=== PATIENT | male | born 1980 ===

== ENCOUNTER → 2020-02-08 09:55 | Outpatient (BNVA) | payer OTHER, SELFPAY | PROVIDERS: PCP Internal Medicine; Referring Provider Internal Medicine; Visit Provider Physician Assistant | DX: E66.01 Morbid (severe) obesity due to excess calories (principal); Z68.39 Body mass index [BMI] 39.0-39.9, adult; Z98.84 Bariatric surgery status | CPT/HCPCS: 99215 ==

== ENCOUNTER 2020-02-21 07:30 | Outpatient (REF) | payer OTHER, SELFPAY ==
[2020-02-21 08:22] LABS: MANUAL DIFF FLAG NO
[2020-02-21 08:42] LABS: Basophils Percent Auto 0.6 % (0-2); Eosinophils Absolute Auto 0.2 X10*3/uL (0.0-0.4); Eosinophils Percent Auto 2.9 % (0-4); Hematocrit 44.6 % (42-52); Hemoglobin 15.1 g/dl (14.0-18.0); Imm Gran Abs Auto 0.02 X10*3/uL (0.00-0.03); Imm Gran Pct Auto 0.3 % (0.0-0.4); Lymphocytes Absolute Auto 1.8 X10*3/uL (1.2-4.9); Lymphocytes Percent Auto 26.4 % (20-40); Mean Corpuscular HGB Conc 33.9 g/dl (31.0-36.0); Mean Corpuscular Hemoglobin 29.4 pg (27.0-33.0); Mean Corpuscular Volume 86.9 fL (80-98); Mean Platelet Volume 10.5 fL (9.4-12.4); Monocytes Absolute Auto 0.5 X10*3/uL (0.1-1.2); Neutrophils Absolute Auto 4.4 X10*3/uL (2.0-8.3); Neutrophils Percent Auto 62.8 % (45-73); Platelet Count 188 X10*3/uL (160-400); Red Blood Count 5.13 X10*6/uL (4.60-5.80); Red Cell Distribution Width 13.7 % (11.0-16.0)
[2020-02-21 09:09] LABS: Alanine Aminotransferase 23 U/L (0-40); Albumin Level 3.8 g/dL (3.5-5.0); Alkaline Phosphatase 57 U/L (39-117); Anion Gap 12 (12-20); Aspartate Amino Transferase 18 U/L (5-37); Bilirubin Total 0.5 mg/dL (0.0-1.0); Blood Urea Nitrogen 15 mg/dL (9-16); C Reactive Protein 0.32 mg/dL (< or = 0.50); Calcium 8.6 mg/dL (8.4-10.2); Carbon Dioxide 26 mmol/L (22-29); Chloride 107 mmol/L (96-108); Cholesterol 190 mg/dL; Estimated Glomerular Filt Rate > 60; Glucose Random 134 mg/dL (60-115); HDL Cholesterol 32 mg/dL; Iron 90 mcg/dL (45-160); LDL Cholesterol Calculated 136 mg/dl; Percent Iron Saturation 29 % (15-50); Sodium 141 mmol/L (135-145); Total Iron Binding Capacity 309 mcg/dL (228-428); Total Protein 6.6 g/dL (6.5-8.0); Triglycerides 114 mg/dL; Unsaturated Iron Binding 219 ug/dL
[2020-02-21 09:33] LABS: TSH reflex Free T4 1.23 mIU/mL (0.32-4.0); Vitamin D 25-OH Total 22.1 ng/mL (>30)
[2020-02-21 09:47] LABS: Estimated Average Glucose 154 mg/dL
[2020-02-21 09:58] LABS: Vitamin B12 577 pg/mL (200-900)
[2020-02-21 10:06] LABS: Ferritin 50 ng/mL (20-250)
[2020-02-25 04:12] LABS: Zinc 71 mcg/dL (60-130)
[2020-02-25 14:56] LABS: Insulin Level Total 16.2 uIU/mL
[2020-02-25 19:11] LABS: Vitamin A 37 mcg/dL (38-98)
[2020-02-28 13:32] LABS: Vitamin B1 <6 nmol/L (8-30)
[2020-02-28 20:32] LABS: Parathyroid Hormone Related Pr 9 pg/mL (14-27)
== END 2020-02-21 07:31 | disposition home or self-care (01) ==
LOC: HO.LAB 07:30
PROVIDERS: PCP Internal Medicine; Visit Provider Physician Assistant
DX: E66.01 Morbid (severe) obesity due to excess calories (principal); F17.200 Nicotine dependence, unspecified, uncomplicated; Z98.84 Bariatric surgery status
CPT/HCPCS: 36415; 80053; 80061; 82306; 82607; 82728; 82746; 83036; 83519; 83525; 83540; 84425; 84443; 84590; 84630; 85025; 86140; 99213

== ENCOUNTER → 2020-03-06 07:48 | Outpatient (BNVA) | payer OTHER, SELFPAY | PROVIDERS: PCP Internal Medicine; Visit Provider Physician Assistant | DX: Z76.89 Persons encountering health services in other specified circumstances (principal) ==

== ENCOUNTER → 2020-03-11 08:09 | Outpatient (BNVA) | payer OTHER, SELFPAY | PROVIDERS: PCP Internal Medicine; Visit Provider Dietitian, Registered | DX: Z76.89 Persons encountering health services in other specified circumstances (principal) ==

== ENCOUNTER → 2020-03-14 12:58 | Outpatient (BNVA) | payer OTHER, SELFPAY | PROVIDERS: PCP Internal Medicine; Referring Provider Internal Medicine; Visit Provider Physician Assistant | DX: Z76.89 Persons encountering health services in other specified circumstances (principal) ==

== ENCOUNTER → 2020-03-14 12:58 | Outpatient (BNVA) | payer OTHER, SELFPAY | PROVIDERS: PCP Internal Medicine; Referring Provider Internal Medicine; Visit Provider Physician Assistant ==

== ENCOUNTER → 2020-03-20 13:34 | Outpatient (BNVA) | payer OTHER, SELFPAY | PROVIDERS: PCP Internal Medicine; Referring Provider Internal Medicine; Visit Provider Dietitian, Registered | DX: Z76.89 Persons encountering health services in other specified circumstances (principal) ==

== ENCOUNTER → 2020-05-22 08:07 | Outpatient (BNVA) | payer OTHER, SELFPAY | PROVIDERS: Visit Provider Dietitian, Registered ==

== ENCOUNTER → 2020-06-11 08:21 | Outpatient (BNVA) | payer OTHER, SELFPAY | PROVIDERS: Visit Provider Physician Assistant ==

== ENCOUNTER → 2020-09-18 08:35 | Outpatient (BNV) | payer OTHER, SELFPAY | PROVIDERS: PCP Internal Medicine; Visit Provider Internal Medicine Medical Oncology | DX: Z86.718 Personal history of other venous thrombosis and embolism (principal) | CPT/HCPCS: 99213 ==

== ENCOUNTER 2020-10-22 12:45 | Outpatient (REF) | payer OTHER, SELFPAY ==
[2020-10-22 14:03] LABS: Basophils Percent Auto 0.1 % (0-2); Hemoglobin 16.1 g/dl (14.0-18.0); Imm Gran Abs Auto 0.09 X10*3/uL (0.00-0.03); Imm Gran Pct Auto 0.6 % (0.0-0.4); Lymphocytes Absolute Auto 0.8 X10*3/uL (1.2-4.9); Lymphocytes Percent Auto 5.4 % (20-40); MANUAL DIFF FLAG SCAN; Mean Corpuscular HGB Conc 33.5 g/dl (31.0-36.0); Mean Corpuscular Hemoglobin 28.9 pg (27.0-33.0); Mean Corpuscular Volume 86.2 fL (80-98); Monocytes Absolute Auto 0.4 X10*3/uL (0.1-1.2); Monocytes Percent Auto 2.9 % (2-11); Neutrophils Absolute Auto 13.4 X10*3/uL (2.0-8.3); Platelet Count 209 X10*3/uL (160-400); Red Blood Count 5.57 X10*6/uL (4.60-5.80); SCAN SMEAR FLAG 1; White Blood Count 14.7 X10*3/uL (4.8-10.8)
[2020-10-22 14:26] LABS: SLIDE REVIEW VERIFIED
[2020-10-22 14:37] LABS: Alanine Aminotransferase 24 U/L (0-40); Albumin Level 4.2 g/dL (3.5-5.0); Alkaline Phosphatase 71 U/L (39-117); Anion Gap 13 (12-20); Aspartate Amino Transferase 15 U/L (5-37); Bilirubin Total 0.4 mg/dL (0.0-1.0); Blood Urea Nitrogen 12 mg/dL (9-16); Calcium 9.4 mg/dL (8.4-10.2); Carbon Dioxide 23 mmol/L (22-29); Chloride 108 mmol/L (96-108); Estimated Glomerular Filt Rate > 60; Glucose Fasting 173 mg/dL (60-99); Potassium 4.1 mmol/L (3.3-5.1); Sodium 140 mmol/L (135-145); Total Protein 7.4 g/dL (6.5-8.0)
[2020-10-27 18:46] LABS: Mixing Study - PT 10.4 sec (9.0-11.5); PTT LA 27 sec (< OR = 40)
== END 2020-10-22 12:46 | disposition home or self-care (01) ==
LOC: HO.HMGCLDS 12:45
PROVIDERS: Nurse Practitioner Family; PCP Internal Medicine; Visit Provider Nurse Practitioner Family
DX: Z01.818 Encounter for other preprocedural examination (principal); R42 Dizziness and giddiness
CPT/HCPCS: 36415; 80048; 80053; 85025; 85611; 85732

== ENCOUNTER 2020-10-22 16:05 | Emergency (ER) | payer OTHER, SELFPAY ==
--- NOTE | ~2020-10-22 | CT_ITS ---
EXAMINATION: CT HEAD WITHOUT CONTRAST CLINICAL INFORMATION: Elevated WBC COMPARISON: None. TECHNIQUE: Contiguous axial imaging was performed from the skull base to vertex without intravenous administration of contrast. Coronal and sagittal reformatted images are performed at the CT scanner. [This CT examination was performed using dose optimization techniques as appropriate, variously including the following: *Automated exposure control *Adjustment of mA and/or kV according to patient size (this includes techniques or standardized protocols for targeted exams where dose is matched to indication/reason for exam; i.e. extremities or head) *Use of iterative reconstruction technique] DLP: 818 mGy-cm. FINDINGS: There is focal intraparenchymal bleed the right frontal lobe. The bleed measures 2.4 x 2.7 x 1.7 cm. There is a rim of low attenuation around the bleed representing edema. There is trace subarachnoid hemorrhage as well in the right frontal lobe surrounding the site of bleed. There is mild mass effect upon the adjacent gyri but no midline shift. No hydrocephalus. CT/CT head/brain wo con IMPRESSION: Right frontal focal intraparenchymal bleed with surrounding edema. Small volume of subarachnoid hemorrhage in the right frontal lobe as well. This critical result was discussed with Rosita Marie on 10/22/2020, 9:28 PM and it was ascertained that the content and urgency of the report was understood at the time of direct communication.
--- NOTE | ~2020-10-22 | XR_ITS ---
EXAMINATION: XR CHEST CLINICAL INFORMATION: Elevated white count COMPARISON: 02/12/2012 TECHNIQUE: 2 views of the chest were obtained. FINDINGS: No significant abnormality is noted involving the heart, lungs, mediastinum, bony thorax or soft tissues. XR/XR chest 2V IMPRESSION: Unremarkable examination.
[2020-10-22 16:34] VITALS: BP 148/90; PULSE 115; RESP 18; TEMP 36.8; O2SAT 98; BMI 40.1
--- NOTE | 2020-10-22 16:38 | ECG_ITS ---
Test Reason : TACHYCARDIA Blood Pressure : / mmHG Vent. Rate : 105 BPM Atrial Rate : 105 BPM P-R Int : 154 ms QRS Dur : 082 ms QT Int : 328 ms P-R-T Axes : 056 -22 010 degrees QTc Int : 433 ms Sinus tachycardia Minimal voltage criteria for LVH, may be normal variant Borderline ECG When compared with ECG of 12-FEB-2012 20:32, No significant change was found Referred By: Generic ED Physician Electronically Signed By:Sven Reeder
[2020-10-22 16:57] LABS: MANUAL DIFF FLAG NO
[2020-10-22 16:59] LABS: Basophils Percent Auto 0.2 % (0-2); Hematocrit 45.6 % (42-52); Hemoglobin 15.7 g/dl (14.0-18.0); Imm Gran Abs Auto 0.08 X10*3/uL (0.00-0.03); Imm Gran Pct Auto 0.5 % (0.0-0.4); Lymphocytes Percent Auto 5.5 % (20-40); Mean Corpuscular HGB Conc 34.4 g/dl (31.0-36.0); Mean Corpuscular Hemoglobin 29.3 pg (27.0-33.0); Mean Corpuscular Volume 85.2 fL (80-98); Mean Platelet Volume 10.5 fL (9.4-12.4); Monocytes Percent Auto 5.8 % (2-11); Neutrophils Absolute Auto 15.5 X10*3/uL (2.0-8.3); Platelet Count 189 X10*3/uL (160-400); Red Blood Count 5.35 X10*6/uL (4.60-5.80); Red Cell Distribution Width 13.1 % (11.0-16.0); White Blood Count 17.6 X10*3/uL (4.8-10.8)
[2020-10-22 17:21] LABS: Anion Gap 14 (12-20); Blood Urea Nitrogen 18 mg/dL (9-16); Calcium 9.1 mg/dL (8.4-10.2); Carbon Dioxide 20 mmol/L (22-29); Chloride 108 mmol/L (96-108); Creatinine Clr Calc Pharmacy 135.4; Estimated Glomerular Filt Rate > 60; Glucose Random 189 mg/dL (60-115); Potassium 3.8 mmol/L (3.3-5.1); Sodium 138 mmol/L (135-145)
[2020-10-22 17:27] LABS: Troponin-I High Sensitivity 12.7 ng/L (<3.5-35.0)
--- NOTE | 2020-10-22 20:17 | ED_ITS ---
HPI - General Adult General Chief complaint: General Medical Stated complaint: migraine- abnormal labs Time Seen by Provider: 10/22/20 20:04 Source: patient Mode of arrival: ambulatory Limitations: no limitations History of Present Illness HPI narrative: 40 yo male with past medical history of NIDDM, depression, anx iety,provoked DVT d/t back surgery on ASA only, [place], HTN, OA, gastric bypass here with complaints of PERERA, nausea, dizziness with movement x 2 days. Seen at [facility] 2 days ago and treated with IV toradol, reglan and dispo'd home with same after improvement in symptoms. Seen at urgent care today d/t persistent symptoms and had labs which were done which showed an elevated white blood cell count and the patient was referred to the emergency department for further evaluation. He describes the headache as generalized. He has no associated photophobia, vision changes, vomiting. He is complaining of nausea. He has some dizziness with position changes. No weakness, numbness or tingling increased from baseline neuropathy. Denies fevers, chills, cough, shortness of breath, chest pain, neck pain, urinary symptoms. The patient does have chronic low back pain but does not feel like this is worsened. Related Data Home Medications Medication Instructions Recorded Confirmed aspirin 81 mg chewable tablet 1 tab PO DAILY 02/08/20 09/18/20 blood sugar diagnostic #10 ea 02/08/20 09/18/20 blood-glucose meter #1 ea 02/08/20 09/18/20 docusate sodium 100 mg capsule 100 mg PO BID 02/08/20 09/18/20 lancets 28 gauge #100 ea 02/08/20 09/18/20 magnesium oxide 400 mg (241.3 mg 400 mg PO DAILY 02/08/20 09/18/20 magnesium) tablet acetaminophen 325 mg capsule 650 mg PO Q4H PRN 06/03/20 09/18/20 benztropine 0.5 mg tablet 0.5 mg PO DAILY PRN 06/03/20 09/18/20 cyclobenzaprine 5 mg tablet 5 mg PO TID PRN 06/03/20 09/18/20 Previous Rx's Medication Instructions Recorded multivitamin 1 tab PO DAILY #30 tab 02/29/20 cholecalciferol (vitamin D3) 25 25 mcg PO DAILY #30 cap 05/23/20 mcg (1,000 unit) capsule famotidine 20 mg tablet 20 mg PO BID 30 Days #60 tab 08/13/20 omeprazole magnesium 20 mg 20 mg PO DAILY #28 tab 09/16/20 tablet,delayed release metformin 1,000 mg tablet 1,000 mg PO BID #60 tab 09/19/20 lisinopril 10 mg tablet 10 mg PO DAILY #30 tab 09/26/20 gabapentin 400 mg capsule 400 mg PO TID 30 Days #90 cap 09/30/20 trazodone 50 mg tablet 25 mg PO DAILY 90 Days #45 tab 09/30/20 ziprasidone HCl 40 mg capsule 40 mg PO BID 30 Days #60 cap 09/30/20 clonazepam 1 mg tablet 1 mg PO DAILY PRN 30 Days #30 tab 10/01/20 zolpidem 10 mg tablet 10 mg PO BEDTIME PRN 30 Days #30 10/01/20 tab cyanocobalamin (vitamin B-12) 100 100 mcg PO DAILY #90 tab 10/05/20 mcg tablet fluoxetine 10 mg capsule 10 mg PO BID 30 Days #60 cap 10/05/20 diphenhydramine HCl 25 mg capsule 25 - 50 mg PO QID PRN #30 cap 10/22/20 metoclopramide HCl 10 mg tablet 10 mg PO Q6H PRN #15 tab 10/22/20 Allergies Allergy/AdvReac Type Severity Reaction Status Date / Time No Known Allergies Allergy Verified 10/22/20 16:33 Review of Systems Review of Systems: Yes all other systems are reviewed and are negative Constitutional: Constitutional: Reports no additional constitutional complaints, Denies body ache(s), Denies chills, Denies fever(s), Reports headache(s) and Denies weakness Eyes: Eyes: Reports no additional eye complaints and Denies change in vision ENT: Reports system reviewed and no additional complaints, except as documented, Denies dizziness, Reports headache(s), Denies nasal congestion, Denies nasal discharge and Reports neck pain Cardiovascular: Cardiovascular: Reports no additional cardiovascular complaints, Denies chest pain, Denies leg edema and Denies dyspnea Respiratory: Respiratory: Reports no additional respiratory complaints, Denies cough and Denies dyspnea Gastrointestinal: Gastrointestinal: Reports no additional gastrointestinal complaints, Denies abdominal pain, Denies diarrhea, Reports nausea and Denies vomiting Genitourinary: Genitourinary: Denies urinary incontinence Musculoskeletal: Musculoskeletal: Reports no additional musculoskeletal complaints, Reports back pain (Chronic), Denies arthralgias, Denies joint swelling, Reports neck pain, Denies numbness and Denies tingling Integumentary/Breasts: Skin/Breast: Reports system reviewed and no additional complaints, except as docu and Denies rash Neurologic: Reports system reviewed and no additional complaints, except as documented, Denies Abnormal speech present, Denies dizziness, Reports headache(s), Denies numbness, Denies tingling and Denies weakness PMFSH Past Medical History Attestation statement: The following information was validated with the patient. Source: old records reviewed and nursing notes reviewed Medical History Depression with anxiety Diabetes mellitus GERD (gastroesophageal reflux disease) Hiatal hernia Hypertension Lyme disease Morbid obesity Obstructive sleep apnea Osteoarthritis Pre-operative examination Pulmonary embolism Umbilical hernia Surgical History Gastric bypass status for obesity H/O umbilical hernia repair History of back surgery S/P laparoscopic appendectomy Status post repair of ventral hernia Family History Family History Mother History of diabetes mellitus Maternal Grandmother History of diabetes mellitus History of hypertension History of breast cancer Sister History of diabetes mellitus Social History Social History Alcohol intake: current Alcohol intake frequency: holidays/special occasions only Alcohol type: beer Patient Tobacco Use Status: Current everyday Tobacco user Use of substances other than those prescribed or required for medical reasons: No Advance Directives: No Advance Directives Information Provided: Yes Physical Exam Vital Signs: Vital Signs: Last Vital Signs Temp 98.2 F 10/22/20 22:05 Pulse 90 10/22/20 22:05 Resp 15 10/22/20 22:05 BP 144/70 H 10/22/20 22:05 Pulse Ox 89 L 10/22/20 22:05 Body Mass Index 40.1 Const: General: cooperative, healthy appearing, comfortable and no acute distress Orientation/consciousness: patient oriented x3 Limitations: no limitations HENMT: Head: Yes normal to inspection Ears: hearing grossly normal bilaterally General nose exam: Normal external nose present Face and sinus: Yes normal facial exam Mouth: Normal oral and palatal mucosa present Throat: Yes posterior oropharynx normal Eyes: General: appearance normal, both eyes and all related structures Pupils: Equal, round and reactive pupils present Neck: Neck: Yes normal visual inspection, Yes full ROM, Yes no lymphadenopathy and Yes no meningeal signs Chest: Chest palpation & inspection: normal inspection of the chest Resp: Effort & Inspection: normal respiratory effort Auscultation: clear to auscultation bilaterally Cardio: Rate: regular rate Rhythm: regular rhythm Peripheral pulses: Peripheral pulses 2+ throughout GI: Inspection: Yes normal to inspection Palpation (GI): Soft to palpation and nontender Auscultation: normal bowel sounds Back/Spine/Pelvis: Other: No midline tenderness step-offs or deformities Thoracic/Lumbar Spine: thoracic and lumbar spine normal to inspection Skin: General skin exam: no rashes or lesions noted Neuro: General: patient oriented x3, no focal motor deficits and normal sensation to monofilament Cranial nerves: Yes CN's II-XII intact bilaterally, Yes Equal, round and reactive pupils present, Yes Bilaterally intact EOM present, Yes Nystagmus not present, Yes Normal facial strength present and Yes Midline tongue present Cognition (Neuro): normal cognition Speech: No Abnormal speech present Gait exam (Neuro): Normal gait present Motor exam (neuro): 5/5 motor strength present throughout Sensory Exam: Normal double simultaneous stimulation for sensation Coordination: myeajd-ra-muys test nor mal, gplh-to-sayi test normal and tandem gait normal Extrem: General: Yes normal to inspection, Yes no pedal edema and Yes no calf tenderness Course Course Course Narrative: 40-year-old male coming in with dizziness with position changes, generalized headache and nausea for the last 2 days. Seen at urgent care as well as a secondary hospital and diagnosed with migraine. Had labs done this morning by urgent care which showed an elevated white blood cell count and so patient was referred into the emergency department for further evaluation. He denies any fevers or chills. No weakness, numbness, tingling, neck pain. No recent tick bites, rashes or joint pain. On arrival the patient is alert and oriented. Neurologically intact. Hemodynamically stable with no fever. He does have some mild tachycardia but tells me that he is in pain. No neck pain with full range of motion and no meningeal signs. Will need labs, CT head, COVID screen, UA, CXR. 2099-Called to CT scan with concern from technical writer and editor for [facility]. ?area of bleeding noted in the right frontal lobe with mild edema but no shift. Images sent direct to radiologist for STAT read. 2119-Call from Brenden Franks radiologist Right frontal focal intraparenchymal bleed with surrounding edema. Small volume of subarachnoid hemorrhage in the right frontal lobe as well. No midline shift. Denies any falls, trauma 2129-Call out to [facility] [place] [place] to discuss for transfer. 2139-Spoke to transfer line, Pending call back from [facility]. 2144-Spoke to Dr Denise at [facility] [place] [place] neuro-ICU. Accepted transfer. Pending direct admit to ICU. Patient is aware. Images sent through [employer]. Medical Decision Making MDM Narrative Medical decision making narrative: ICH vs CVA, meninigitis/encephalitis, viral syndrome Medical Records Medical records reviewed: Yes I reviewed the patient's medical records. Lab Data Lab results reviewed: Yes I reviewed the patient's lab results. Result diagrams: 10/22/20 16:53 10/22/20 16:53 Labs: Lab Results 10/22/20 10/22/20 10/22/20 Range/Units 16:53 16:53 16:53 WBC 17.6 H (4.8-10.8) X10*3/uL RBC 5.35 (4.60-5.80) X10*6/uL Hgb 15.7 (14.0-18.0) g/dl Hct 45.6 (42-52) % MCV 85.2 (80-98) fL MCH 29.3 (27.0-33.0) pg MCHC 34.4 (31.0-36.0) g/dl RDW 13.1 (11.0-16.0) % Plt Count 189 (160-400) X10*3/uL MPV 10.5 (9.4-12.4) fL Immature Gran % (Auto) 0.5 H (0.0-0.4) % Neut % (Auto) 88.0 H (45-73) % Lymph % (Auto) 5.5 L (20-40) % [place] % (Auto) 5.8 (2-11) % Eos % (Auto) 0.0 (0-4) % Baso % (Auto) 0.2 (0-2) % Lymph # (Auto) 1.0 L (1.2-4.9) X10*3/uL [place] # (Auto) 1.0 (0.1-1.2) X10*3/uL Eos # (Auto) 0.0 (0.0-0.4) X10*3/uL Baso # (Auto) 0.0 (0.0-0.2) X10*3/uL Abs Immat Gran (auto) 0.08 H (0.00-0.03) X10*3/uL Absolute Neuts (auto) 15.5 H (2.0-8.3) X10*3/uL Absolute Nucleated RBC 0.000 (0.0-0.012) X10*3/uL Nucleated RBC % (auto) 0.0 (0.0-0.2) /100WBC Sodium 138 (135-145) mmol/L Potassium 3.8 (3.3-5.1) mmol/L Chloride 108 (96-108) mmol/L Carbon Dioxide 20 L (22-29) mmol/L Anion Gap 14 (12-20) BUN 18 H (9-16) mg/dL Creatinine 0.96 (0.5-1.4) mg/dL Estim Creat Clear Calc 135.4 Estimated GFR > 60 Random Glucose 189 H (60-115) mg/dL Lactic Acid (0.5-2.0) mmol/L Calcium 9.1 (8.4-10.2) mg/dL Magnesium (1.6-2.6) mg/dL Total Bilirubin (0.0-1.0) mg/dL Direct Bilirubin (0.0-0.5) mg/dL AST (5-37) U/L ALT (0-40) U/L Alkaline Phosphatase (39-117) U/L Troponin I High Sens 12.7 (<3.5-35.0) ng/L Total Protein (6.5-8.0) g/dL Albumin (3.5-5.0) g/dL Urine Color Urine Appearance Urine pH (5.0-8.0) Ur Specific [place] (1.005-1.025) Urine Protein (NEG-TRACE) MG/DL Urine Glucose (UA) (NEG) MG/DL Urine Ketones (NEG) MG/DL Urine Blood (NEG) Urine Nitrite (NEG) Ur Leukocyte Esterase (NEG) Urine RBC (0) /HPF Urine WBC (0-4) /HPF Ur Squamous Epith Cells /LPF Urine Bacteria /LPF COVID-19 (CHARISSA) (Negative) COVID-19 Clin [facility] 10/22/20 10/22/20 10/22/20 Range/Units 20:29 20:30 20:31 WBC (4.8-10.8) X10*3/uL RBC (4.60-5.80) X10*6/uL Hgb (14.0-18.0) g/dl Hct (42-52) % MCV (80-98) fL MCH (27.0-33.0) pg MCHC (31.0-36.0) g/dl RDW (11.0-16.0) % Plt Count (160-400) X10*3/uL MPV (9.4-12.4) fL Immature Gran % (Auto) (0.0-0.4) % Neut % (Auto) (45-73) % Lymph % (Auto) (20-40) % [place] % (Auto) (2-11) % Eos % (Auto) (0-4) % Baso % (Auto) (0-2) % Lymph # (Auto) (1.2-4.9) X10*3/uL [place] # (Auto) (0.1-1.2) X10*3/uL Eos # (Auto) (0.0-0.4) X10*3/uL Baso # (Auto) (0.0-0.2) X10*3/uL Abs Immat Gran (auto) (0.00-0.03) X10*3/uL Absolute Neuts (auto) (2.0-8.3) X10*3/uL Absolute Nucleated RBC (0.0-0.012) X10*3/uL Nucleated RBC % (auto) (0.0-0.2) /100WBC Sodium (135-145) mmol/L Potassium (3.3-5.1) mmol/L Chloride (96-108) mmol/L Carbon Dioxide (22-29) mmol/L Anion Gap (12-20) BUN (9-16) mg/dL Creatinine (0.5-1.4) mg/dL Estim Creat Clear Calc Estimated GFR Random Glucose (60-115) mg/dL Lactic Acid 1.6 (0.5-2.0) mmol/L Calcium (8.4-10.2) mg/dL Magnesium (1.6-2.6) mg/dL Total Bilirubin (0.0-1.0) mg/dL Direct Bilirubin (0.0-0.5) mg/dL AST (5-37) U/L ALT (0-40) U/L Alkaline Phosphatase (39-117) U/L Troponin I High Sens 16.7 (<3.5-35.0) ng/L Total Protein (6.5-8.0) g/dL Albumin (3.5-5.0) g/dL Urine Color YELLOW Urine Appearance CLEAR Urine pH 6.0 (5.0-8.0) Ur Specific [place] >= 1.030 H (1.005-1.025) Urine Protein 1+ H (NEG-TRACE) MG/DL Urine Glucose (UA) 100 H (NEG) MG/DL Urine Ketones 15 (NEG) MG/DL Urine Blood NEG (NEG) Urine Nitrite NEG (NEG) Ur Leukocyte Esterase NEG (NEG) Urine RBC 0 (0) /HPF Urine WBC 0 (0-4) /HPF Ur Squamous Epith Cells NONE /LPF Urine Bacteria TRACE /LPF COVID-19 (CHARISSA) (Negative) COVID-19 Clin Com 10/22/20 10/22/20 Range/Units 20:32 20:32 WBC (4.8-10.8) X10*3/uL RBC (4.60-5.80) X10*6/uL Hgb (14.0-18.0) g/dl Hct (42-52) % MCV (80-98) fL MCH (27.0-33.0) pg MCHC (31.0-36.0) g/dl RDW (11.0-16.0) % Plt Count (160-400) X10*3/uL MPV (9.4-12.4) fL Immature Gran % (Auto) (0.0-0.4) % Neut % (Auto) (45-73) % Lymph % (Auto) (20-40) % [place] % (Auto) (2-11) % Eos % (Auto) (0-4) % Baso % (Auto) (0-2) % Lymph # (Auto) (1.2-4.9) X10*3/uL [place] # (Auto) (0.1-1.2) X10*3/uL Eos # (Auto) (0.0-0.4) X10*3/uL Baso # (Auto) (0.0-0.2) X10*3/uL Abs Immat Gran (auto) (0.00-0.03) X10*3/uL Absolute Neuts (auto) (2.0-8.3) X10*3/uL Absolute Nucleated RBC (0.0-0.012) X10*3/uL Nucleated RBC % (auto) (0.0-0.2) /100WBC Sodium (135-145) mmol/L Potassium (3.3-5.1) mmol/L Chloride (96-108) mmol/L Carbon Dioxide (22-29) mmol/L Anion Gap (12-20) BUN (9-16) mg/dL Creatinine (0.5-1.4) mg/dL Estim Creat Clear Calc Estimated GFR Random Glucose (60-115) mg/dL Lactic Acid (0.5-2.0) mmol/L Calcium (8.4-10.2) mg/dL Magnesium 2.1 (1.6-2.6) mg/dL Total Bilirubin 0.5 (0.0-1.0) mg/dL Direct Bilirubin < 0.2 (0.0-0.5) mg/dL AST 16 (5-37) U/L ALT 24 (0-40) U/L Alkaline Phosphatase 71 (39-117) U/L Troponin I High Sens (<3.5-35.0) ng/L Total Protein 7.6 (6.5-8.0) g/dL Albumin 4.2 (3.5-5.0) g/dL Urine Color Urine Appearance Urine pH (5.0-8.0) Ur Specific [place] (1.005-1.025) Urine Protein (NEG-TRACE) MG/DL Urine Glucose (UA) (NEG) MG/DL Urine Ketones (NEG) MG/DL Urine Blood (NEG) Urine Nitrite (NEG) Ur Leukocyte Esterase (NEG) Urine RBC (0) /HPF Urine WBC (0-4) /HPF Ur Squamous Epith Cells /LPF Urine Bacteria /LPF COVID-19 (CHARISSA) Negative (Negative) COVID-19 Clin Com See Note Imaging Data CT scan - head: Attestation: I personally reviewed and interpreted this imaging study as follows: Radiologist's impression: [address] [id number] Scan ReportSigned Patient: Korey HassanMR#: [id number]: 1980Acct:[id number]/Sex: 40 / MADM Date: 10/22/20Loc: [facility] Dr: Ordering Physician: DEDRICK MADRIGAL NP Date of Service: 10/22/20 Procedure(s): CT head/brain wo con Accession Number(s): [id number] cc: DEDRICK MADRIGAL NP~ EXAMINATION: CT HEAD WITHOUT CONTRAST CLINICAL INFORMATION: Elevated WBC COMPARISON: None. TECHNIQUE: Contiguous axial imaging was performed from the skull base to vertex without intravenous administration of contrast. Coronal and sagittal reformatted images are performed at the CT scanner. [This CT examination was performed using dose optimization techniques as appropriate, variously including the following: *Automated exposure control *Adjustment of mA and/or kV according to patient size (this includes techniques or standardized protocols for targeted exams where dose is matched to indication/reason for exam; i.e. extremities or head) *Use of iterative reconstruction technique] DLP: 818 mGy-cm. FINDINGS: There is focal intraparenchymal bleed the right frontal lobe. The bleed measures 2.4 x 2.7 x 1.7 cm. There is a rim of low attenuation around the bleed representing edema. There is trace subarachnoid hemorrhage as well in the right frontal lobe surrounding the site of bleed. There is mild mass effect upon the adjacent gyri but no midline shift. No hydrocephalus. CT/CT head/brain wo con IMPRESSION: Right frontal focal intraparenchymal bleed with surrounding edema. Small volume of subarachnoid hemorrhage in the right frontal lobe as well. Chest x-ray: Attestation: I personally reviewed and interpreted this imaging study as follows: Radiologist's impression: EXAMINATION: XR CHEST CLINICAL INFORMATION: Elevated white count COMPARISON: 02/12/2012 TECHNIQUE: 2 views of the chest were obtained. FINDINGS: No significant abnormality is noted involving the heart, lungs, mediastinum, bony thorax or soft tissues. XR/XR chest 2V IMPRESSION: Unremarkable examination. Critical Care Time Critical Care Time Critical Care Time: Yes Total Critical Care Time: 60 Attestation: Transfer to a tertiary care center Multiple repeat neuro exams Discussion with Neurosurgery Discharge Plan Discharge Clinical Impression: SAH (subarachnoid hemorrhage) Patient Disposition: er [facility] Transfer Details: [facility] Prescriptions: No Action multivitamin Tablet 1 tab PO DAILY Qty: 30 RF: 6 cholecalciferol (vitamin D3) 25 mcg (1,000 unit) capsule 25 mcg PO DAILY Qty: 30 RF: 6 famotidine 20 mg tablet 20 mg PO BID 30 Days Qty: 60 RF: 2 omeprazole magnesium [Prilosec OTC] 20 mg tablet,delayed release (DR/EC) 20 mg PO DAILY Qty: 28 RF: 3 metformin 1,000 mg tablet 1,000 mg PO BID Qty: 60 RF: 3 lisinopril 10 mg tablet 10 mg PO DAILY Qty: 30 RF: 11 trazodone 50 mg tablet 25 mg PO DAILY 90 Days Qty: 45 RF: 1 gabapentin 400 mg capsule 400 mg PO TID 30 Days Qty: 90 RF: 3 ziprasidone HCl [Geodon] 40 mg capsule 40 mg PO BID 30 Days Qty: 60 RF: 3 clonazepam 1 mg tablet 1 mg PO DAILY PRN (Reason: anxiety) 30 Days Qty: 30 RF: 0 zolpidem [Ambien] 10 mg tablet 10 mg PO BEDTIME PRN (Reason: insomnia) 30 Days Qty: 30 RF: 0 cyanocobalamin (vitamin B-12) 100 mcg tablet 100 mcg PO DAILY Qty: 90 RF: 0 fluoxetine [Prozac] 10 mg capsule 10 mg PO BID 30 Days Qty: 60 RF: 3 acetaminophen 325 mg capsule 650 mg PO Q4H PRN (Reason: Pain) RF: 0 benztropine 0.5 mg tablet 0.5 mg PO DAILY PRN (Reason: Pain) RF: 0 cyclobenzaprine 5 mg tablet 5 mg PO TID PRN (Reason: Pain) RF: 0 diphenhydramine HCl 25 mg capsule 25 - 50 mg PO QID PRN (Reason: migraine headache/nausea) Qty: 30 RF: 0 metoclopramide HCl 10 mg tablet 10 mg PO Q6H PRN (Reason: nausea and vomiting) Qty: 15 RF: 0 magnesium oxide 400 mg (241.3 mg magnesium) tablet 400 mg PO DAILY RF: 0 (DME) FreeStyle Lite Strips Strip See Rx Instructions strip .ROUTE .MEDSUPPLY Qty: 10 RF: 0 aspirin 81 mg tablet,chewable 1 tab PO DAILY RF: 0 (DME) lancets 28 gauge misc See Rx Instructions lancet topical TID Qty: 100 RF: 0 (DME) blood-glucose meter Kit See Rx Instructions ea .ROUTE .MEDSUPPLY Qty: 1 RF: 0 docusate sodium [Colace] 100 mg capsule 100 mg PO BID RF: 0 Interventions: Acute Care Transfer Worksheet (ED) Last Done: 10/22/20 23:13 Discharge Date/Time: 10/22/20 23:14
[2020-10-22 20:24] VITALS: BP 154/95; PULSE 81; RESP 18; O2SAT 99
[2020-10-22] MEDS: 0.9 % Sodium Chloride 1,000 ML 999 ML IV (20:32)
[2020-10-22] MEDS: Ketorolac Tromethamine 30 MG/ML VIAL IVPUSH (20:38)
[2020-10-22] MEDS: diphenhydrAMINE HCL 50 MG/ML VIAL 25 MG IVPUSH (20:38)
[2020-10-22] MEDS: Metoclopramide HCl 10 MG/2 ML VIAL IVPUSH (20:39)
[2020-10-22 20:42] LABS: Glucose Urine UA 100 MG/DL (NEG); Leukocyte Esterase Urine NEG (NEG); Nitrite Urine NEG (NEG); Specific Gravity - Urine >= 1.030 (1.005-1.025); Urine Blood NEG (NEG); Urine Ketones 15 MG/DL (NEG); Urine Protein 1+ MG/DL (NEG-TRACE)
[2020-10-22 20:44] LABS: Appearance Urine CLEAR; Color Urine YELLOW
[2020-10-22 20:52] LABS: Bacteria Urine TRACE /LPF; RBC Urine 0 /HPF (0); WBC Urine 0 /HPF (0-4)
[2020-10-22 20:55] LABS: Lactic Acid 1.6 mmol/L (0.5-2.0)
[2020-10-22 21:01] LABS: Alanine Aminotransferase 24 U/L (0-40); Albumin Level 4.2 g/dL (3.5-5.0); Alkaline Phosphatase 71 U/L (39-117); Aspartate Amino Transferase 16 U/L (5-37); Bilirubin Direct < 0.2 mg/dL (0.0-0.5); Bilirubin Total 0.5 mg/dL (0.0-1.0); Magnesium 2.1 mg/dL (1.6-2.6); Total Protein 7.6 g/dL (6.5-8.0)
[2020-10-22 21:04] LABS: Troponin-I High Sensitivity 16.7 ng/L (<3.5-35.0)
[2020-10-22 21:15] LABS: COVID-19 Test Negative (Negative)
[2020-10-22 22:05] VITALS: BP 144/70; PULSE 90; RESP 15; TEMP 36.8; O2SAT 89
--- NOTE | 2020-10-22 22:06 | PC.NURSE ---
PT REPORTS NAUSEA CURRENTLY RESOLVED. HEADACHE ONGOING. SECOND #18 PLACED IN R AC. PT AWARE OF PLAN FOR TRANSFER.
== END 2020-10-22 23:14 | disposition short-term general hospital (02) ==
PROVIDERS: Nurse Practitioner Family; Emergency Provider Emergency Medicine; PCP Internal Medicine
DX: I60.9 Nontraumatic subarachnoid hemorrhage, unspecified (principal); E11.9 Type 2 diabetes mellitus without complications; I10 Essential (primary) hypertension; Z86.718 Personal history of other venous thrombosis and embolism; Z79.82 Long term (current) use of aspirin; Z79.84 Long term (current) use of oral hypoglycemic drugs; Z79.899 Other long term (current) drug therapy; Z98.84 Bariatric surgery status; Z20.822 Contact with and (suspected) exposure to COVID-19
CPT/HCPCS: 36415; 70450; 71046; 80048; 80076; 81001; 83605; 83735; 84484; 85025; 87040; 87635; 93005; 96361; 96374; 96375; 99285; 99291; J1200; J1885; J2765

== ENCOUNTER 2020-12-05 09:58 | Outpatient (REF) | payer OTHER, SELFPAY ==
--- NOTE | ~2020-12-05 | US_ITS ---
EXAMINATION: US ABDOMEN COMPLETE CLINICAL INFORMATION: Unspecified abdominal pain. COMPARISON: CT abdomen 08/05/2017. Renal ultrasound 04/13/2017. Ultrasound abdomen complete. TECHNIQUE: Real-time imaging of the abdominal viscera. FINDINGS: PANCREAS: Normal. ABDOMINAL AORTA: The proximal, mid, and distal segments are normal in caliber. INFERIOR VENA CAVA: Visualized portions are normal. LIVER: The liver is normal in size. The liver contour is normal. There is increased liver echogenicity. No focal hepatic lesion. There is no intrahepatic biliary duct dilatation seen. GALLBLADDER: The bladder wall thickness is 0.27. The gallbladder is physiologically distended without evidence of stones, sludge, polyps, or pericholecystic fluid. COMMON BILE DUCT: Normal in caliber measuring 0.5 cm in diameter. RIGHT KIDNEY: There are multiple renal cysts with the largest measured. An upper pole cyst appears complex measuring 4.5 x 4.2 x 3.9 cm. A midpole cyst measures 2.8 x 2.5 x 2.6 cm. A complex cyst in the lower pole measures 2.4 x 2.2 x 2.4 cm. No hydronephrosis or renal calculi. The kidney measures 15.4 cm in maximum dimension. LEFT KIDNEY: There are multiple renal cysts with the largest measured. The upper pole cyst measuring 2.4 x 2.4 x 2.5 cm. Midpole cyst measuring 3.1 x 3.1 x 3.1 cm. Lower pole cyst measuring 2.7 x 2.2 x 2.3 cm. No hydronephrosis or renal calculi. The kidney measures 15.0 cm in maximum dimension. SPLEEN: Normal. The spleen measures 9.6 cm in maximum dimension. FREE FLUID: None. US/US abdomen complete IMPRESSION: Bilateral multiple liver cysts simple and complex. Hepatic steatosis without focal lesion. Rest of the abdominal ultrasound is unremarkable.
== END 2020-12-05 09:59 | disposition home or self-care (01) ==
LOC: HO.HMGCX 09:58
PROVIDERS: PCP Internal Medicine; Visit Provider Internal Medicine
DX: R10.9 Unspecified abdominal pain (principal)
CPT/HCPCS: 76700

== ENCOUNTER → 2020-12-16 14:03 | Outpatient (BNVA) | payer OTHER, SELFPAY | PROVIDERS: PCP Internal Medicine; Visit Provider Urology | DX: Q61.3 Polycystic kidney, unspecified (principal) | CPT/HCPCS: 99212 ==

== ENCOUNTER 2021-04-06 09:18 | Outpatient (REF) | payer OTHER, SELFPAY ==
[2021-04-06 09:41] LABS: MANUAL DIFF FLAG NO
[2021-04-06 09:54] LABS: Basophils Absolute Auto 0.1 X10*3/uL (0.0-0.2); Basophils Percent Auto 0.6 % (0-2); Eosinophils Absolute Auto 0.2 X10*3/uL (0.0-0.4); Eosinophils Percent Auto 2.6 % (0-4); Hematocrit 46.2 % (42.0-52.0); Hemoglobin 15.5 g/dl (14.0-18.0); Imm Gran Abs Auto 0.02 X10*3/uL (0.00-0.03); Imm Gran Pct Auto 0.2 % (0.0-0.4); Lymphocytes Absolute Auto 2.3 X10*3/uL (1.2-4.9); Lymphocytes Percent Auto 28.9 % (20-40); Mean Corpuscular HGB Conc 33.5 g/dl (31.0-36.0); Mean Corpuscular Hemoglobin 29.2 pg (27.0-33.0); Mean Platelet Volume 10.2 fL (9.4-12.4); Monocytes Absolute Auto 0.6 X10*3/uL (0.1-1.2); Monocytes Percent Auto 7.9 % (2-11); Neutrophils Absolute Auto 4.8 x10*3/uL (2.0-8.3); Neutrophils Percent Auto 59.8 % (45-73); Platelet Count 211 X10*3/uL (160-400); Red Blood Count 5.31 X10*6/uL (4.60-5.80); Red Cell Distribution Width 13.3 % (11.0-16.0); White Blood Count 8.1 X10*3/uL (4.8-10.8)
[2021-04-06 10:24] LABS: Anion Gap 11 (12-20); Blood Urea Nitrogen 17 mg/dL (9-16); Calcium 9.8 mg/dL (8.4-10.2); Carbon Dioxide 28 mmol/L (22-29); Chloride 105 mmol/L (96-108); Cholesterol 204 mg/dL; Estimated Glomerular Filt Rate > 60; HDL Cholesterol 39 mg/dL; Iron 139 mcg/dL (45-160); LDL Cholesterol Calculated 129 mg/dl; Percent Iron Saturation 42 % (15-50); Potassium 4.3 mmol/L (3.3-5.1); Sodium 140 mmol/L (135-145); Total Iron Binding Capacity 332 mcg/dL (228-428); Triglycerides 180 mg/dL; Unsaturated Iron Binding 193 ug/dL
[2021-04-06 10:48] LABS: Vitamin D 25-OH Total 27.6 ng/mL (>30)
[2021-04-06 10:58] LABS: Appearance Urine CLEAR; Color Urine YELLOW; Glucose Urine UA NEG (NEG); Leukocyte Esterase Urine NEG (NEG); Nitrite Urine NEG (NEG); PH 6.5 (5.0-8.0); Urine Blood NEG (NEG); Urine Ketones NEG (NEG); Urine Protein NEG (NEG-TRACE)
[2021-04-06 11:17] LABS: Ferritin 70 ng/mL (20-250)
[2021-04-06 11:26] LABS: Creatinine Urine 150.48 mg/dL; Microalbum/Creatinine Ratio Ur 9.9 ug/mg cr; Protein/Creatinine Ratio, Ur 0.09 (<0.2); Total Protein Urine Random 13 mg/dL (<12)
== END 2021-04-06 09:19 | disposition home or self-care (01) ==
LOC: HO.LAB 09:18
PROVIDERS: PCP Internal Medicine; Visit Provider Internal Medicine Hypertension Specialist
DX: Q61.3 Polycystic kidney, unspecified (principal)
CPT/HCPCS: 36415; 80051; 80061; 81003; 82043; 82306; 82310; 82565; 82728; 83540; 84156; 84520; 85025; 87086

== ENCOUNTER 2021-06-17 15:36 | Outpatient (REF) | payer OTHER, SELFPAY ==
--- NOTE | ~2021-06-17 | US_ITS ---
EXAMINATION: US RETROPERITONEAL LIMITED (RENAL ONLY) CLINICAL INFORMATION: Renal cyst. COMPARISON: Ultrasound abdomen complete 12/05/2020. Renal ultrasound 04/13/2017. CT abdomen with contrast 08/05/2017. TECHNIQUE: Real-time imaging of the kidneys. FINDINGS: RIGHT KIDNEY: 15.8 x 7.8 x 7 cm (SAG x AP x TRV). Again noted are multiple renal cysts, including a parapelvic cyst measuring up to 4 cm in the upper pole. This cyst has thin septation, Bosniak category 2 cyst, and is unchanged in size compared to 08/05/2017. Other scattered cysts are compatible with Bosniak category 1 cysts. No evidence of nephrolithiasis or hydronephrosis. LEFT KIDNEY: 15.0 x 6.8 x 5.4 cm (SAG x AP x TRV). Multiple cysts are present within the left kidney, including Bosniak category 1 cyst in the interpolar area of 3.4 cm maximum dimension and Bosniak category 1 cyst of the lower pole of 3 cm maximum dimension. Small, 0.6 cm echogenic focus in the upper pole appears to represent minimal calcification along the wall of a cyst. An echogenic focus measuring up to approximately 1 cm in the interpolar area lacks distal shadowing; its uncertain whether this represents a renal stone or echogenic debris or calcification along a cyst wall. Otherwise, left kidney is unremarkable. US/US renal BI IMPRESSION: * Polycystic renal disease. Overall, the visualized cysts are not significantly changed in size compared to prior exams. The Bosniak category 2 parapelvic cyst of the upper pole of the right kidney is stable in size compared to 08/05/2017. No renal imaging follow-up recommended (if asymptomatic). * Possible calculus in the interpolar region of the left kidney. No hydronephrosis.
== END 2021-06-17 15:37 | disposition home or self-care (01) ==
LOC: HO.US 15:36
PROVIDERS: Visit Provider Psychiatry & Neurology Neurology
DX: Q61.9 Cystic kidney disease, unspecified (principal)
CPT/HCPCS: 76775

== ENCOUNTER 2021-06-30 09:03 | Outpatient (REF) | payer OTHER, SELFPAY ==
[2021-06-30 09:23] LABS: MANUAL DIFF FLAG NO
[2021-06-30 09:33] LABS: Basophils Absolute Auto 0.1 X10*3/uL (0.0-0.2); Basophils Percent Auto 0.7 % (0-2); Eosinophils Absolute Auto 0.2 X10*3/uL (0.0-0.4); Eosinophils Percent Auto 2.5 % (0-4); Hematocrit 43.3 % (42.0-52.0); Hemoglobin 14.2 g/dl (14.0-18.0); Imm Gran Abs Auto 0.01 X10*3/uL (0.00-0.03); Imm Gran Pct Auto 0.1 % (0.0-0.4); Lymphocytes Absolute Auto 1.9 X10*3/uL (1.2-4.9); Lymphocytes Percent Auto 27.2 % (20-40); Mean Corpuscular HGB Conc 32.8 g/dl (31.0-36.0); Mean Corpuscular Hemoglobin 28.9 pg (27.0-33.0); Mean Corpuscular Volume 88.2 fL (80.0-98.0); Mean Platelet Volume 10.2 fL (9.4-12.4); Monocytes Absolute Auto 0.6 X10*3/uL (0.1-1.2); Monocytes Percent Auto 8.4 % (2-11); Neutrophils Absolute Auto 4.3 x10*3/uL (2.0-8.3); Neutrophils Percent Auto 61.1 % (45-73); Platelet Count 181 X10*3/uL (160-400); Red Blood Count 4.91 X10*6/uL (4.60-5.80); Red Cell Distribution Width 13.8 % (11.0-16.0); White Blood Count 7.1 X10*3/uL (4.8-10.8)
[2021-06-30 09:52] LABS: Estimated Average Glucose 146 mg/dL; Hemoglobin A1c % 6.7 %
[2021-06-30 10:15] LABS: Alanine Aminotransferase 28 U/L (0-40); Albumin Level 3.9 g/dL (3.5-5.0); Alkaline Phosphatase 56 U/L (39-117); Anion Gap 9 (12-20); Aspartate Amino Transferase 19 U/L (5-37); Bilirubin Total 0.5 mg/dL (0.0-1.0); Blood Urea Nitrogen 14 mg/dL (9-16); Calcium 9.1 mg/dL (8.4-10.2); Carbon Dioxide 27 mmol/L (22-29); Chloride 106 mmol/L (96-108); Cholesterol 185 mg/dL; Estimated Glomerular Filt Rate > 60; Glucose Fasting 164 mg/dL (60-99); HDL Cholesterol 32 mg/dL; LDL Cholesterol Calculated 127 mg/dl; Potassium 4.2 mmol/L (3.3-5.1); Sodium 138 mmol/L (135-145); Total Protein 6.8 g/dL (6.5-8.0); Triglycerides 133 mg/dL
[2021-06-30 10:22] LABS: TSH reflex Free T4 0.95 uIU/mL (0.32-4.0); Vitamin D 25-OH Total 25.6 ng/mL (>30)
[2021-06-30 10:41] LABS: Appearance Urine CLEAR; Color Urine YELLOW; Glucose Urine UA NEG (NEG); Leukocyte Esterase Urine NEG (NEG); Nitrite Urine NEG (NEG); Specific Gravity - Urine 1.015 (1.005-1.025); Urine Blood NEG (NEG); Urine Ketones 5 MG/DL (NEG); Urine Protein NEG (NEG-TRACE)
[2021-06-30 11:21] LABS: Creatinine Urine 183.29 mg/dL; Microalbum/Creatinine Ratio Ur 6.5 ug/mg cr
== END 2021-06-30 09:04 | disposition home or self-care (01) ==
LOC: HO.LAB 09:03
PROVIDERS: PCP Internal Medicine; Visit Provider Internal Medicine
DX: E11.9 Type 2 diabetes mellitus without complications (principal); I10 Essential (primary) hypertension; E78.00 Pure hypercholesterolemia, unspecified; E55.9 Vitamin D deficiency, unspecified
CPT/HCPCS: 36415; 80053; 80061; 81003; 82043; 82306; 83036; 84443; 85025

== ENCOUNTER 2022-02-10 14:22 | Outpatient (REF) | payer OTHER, SELFPAY ==
--- NOTE | ~2022-02-10 | CT_ITS ---
EXAMINATION: CT HEAD WITHOUT CONTRAST CLINICAL INFORMATION: Headache. COMPARISON: None TECHNIQUE: Contiguous axial imaging was performed from the skull base to vertex without intravenous administration of contrast. This CT examination was performed using dose optimization techniques as appropriate, variously including the following: *Automated exposure control *Adjustment of mA and/or kV according to patient size (this includes techniques or standardized protocols for targeted exams where dose is matched to indication/reason for exam; i.e. extremities or head) *Use of iterative reconstruction technique DLP: 938 mGy-cm FINDINGS: There is no acute intra-axial, extra-axial bleed, masses or midline shift. There is no acute infarction in evolution. There is a right frontal lobe hypodensity/encephalomalacia from resolved intraparenchymal hemorrhage. There is no edema. Bryant to white matter differentiation is maintained normal. Both lateral ventricles are symmetrical in size and configuration without enlargement. Bone windows reveal no calvarial abnormality. There is no scalp soft tissue abnormality. There is diffuse mucoperiosteal thickening involving bilateral maxillary and ethmoid sinuses. CT/CT head/brain wo IV con IMPRESSION: No acute intracranial process seen. Right frontal lobe encephalomalacia from old hemorrhage.
== END 2022-02-10 14:23 | disposition home or self-care (01) ==
LOC: HO.CT 14:22
PROVIDERS: Visit Provider Internal Medicine
DX: I60.9 Nontraumatic subarachnoid hemorrhage, unspecified (principal); R51.9 Headache, unspecified
CPT/HCPCS: 70450

== ENCOUNTER 2022-08-19 08:28 | Outpatient (REF) | payer OTHER, SELFPAY ==
[2022-08-19 08:37] LABS: MANUAL DIFF FLAG NO
[2022-08-19 09:26] LABS: Appearance Urine Clear; Color Urine Yellow; Glucose Urine UA Negative (Negative); Leukocyte Esterase Urine Negative (Negative); Nitrite Urine Negative (Negative); PH 5.5 (5.0-9.0); Specific Gravity - Urine 1.025 (1.005-1.025); Urine Blood Negative (Negative); Urine Ketones Negative (Negative); Urine Protein Trace mg/dL (Neg-Trace)
[2022-08-19 09:27] LABS: Basophils Absolute Auto 0.1 X10*3/uL (0.0-0.2); Basophils Percent Auto 0.6 % (0-2); Eosinophils Absolute Auto 0.3 X10*3/uL (0.0-0.4); Eosinophils Percent Auto 3.1 % (0-4); Hematocrit 44.3 % (42.0-52.0); Hemoglobin 14.7 g/dl (14.0-18.0); Imm Gran Abs Auto 0.01 X10*3/uL (0.00-0.03); Imm Gran Pct Auto 0.1 % (0.0-0.4); Lymphocytes Absolute Auto 2.9 X10*3/uL (1.2-4.9); Lymphocytes Percent Auto 35.8 % (20-40); Mean Corpuscular HGB Conc 33.2 g/dl (31.0-36.0); Mean Corpuscular Hemoglobin 28.9 pg (27.0-33.0); Monocytes Absolute Auto 0.6 X10*3/uL (0.1-1.2); Monocytes Percent Auto 7.4 % (2-11); Neutrophils Absolute Auto 4.2 x10*3/uL (2.0-8.3); Platelet Count 207 X10*3/uL (160-400); Red Blood Count 5.09 X10*6/uL (4.60-5.80); Red Cell Distribution Width 12.7 % (11.0-16.0)
[2022-08-19 10:00] LABS: Alanine Aminotransferase 49 U/L (0-40); Alkaline Phosphatase 64 U/L (39-117); Anion Gap 13 (12-20); Aspartate Amino Transferase 34 U/L (5-37); Bilirubin Total 0.8 mg/dL (0.0-1.0); Blood Urea Nitrogen 12 mg/dL (9-16); Calcium 9.2 mg/dL (8.4-10.2); Carbon Dioxide 28 mmol/L (22-29); Chloride 105 mmol/L (96-108); Cholesterol 150 mg/dL; Estimated Glomerular Filt Rate > 60; Glucose Fasting 108 mg/dL (60-99); HDL Cholesterol 41 mg/dL; LDL Cholesterol Calculated 90 mg/dl; Potassium 3.7 mmol/L (3.3-5.1); Sodium 142 mmol/L (135-145); Total Protein 6.8 g/dL (6.5-8.0); Triglycerides 99 mg/dL
[2022-08-19 10:01] LABS: Microalbum/Creatinine Ratio Ur 9.9 ug/mg cr
[2022-08-19 10:18] LABS: TSH reflex Free T4 2.33 uIU/mL (0.32-4.0); Vitamin D 25-OH Total 21.4 ng/mL (>30)
== END 2022-08-19 08:29 | disposition home or self-care (01) ==
LOC: HO.LAB 08:28
PROVIDERS: PCP Internal Medicine; Visit Provider Internal Medicine
DX: E78.00 Pure hypercholesterolemia, unspecified (principal); R30.0 Dysuria; E55.9 Vitamin D deficiency, unspecified; E11.9 Type 2 diabetes mellitus without complications; I10 Essential (primary) hypertension
CPT/HCPCS: 36415; 80053; 80061; 81003; 82043; 82306; 84443; 85025

== ENCOUNTER 2022-09-02 09:12 | Outpatient (REF) | payer OTHER, SELFPAY ==
--- NOTE | ~2022-09-02 | US_ITS ---
EXAMINATION: US VENOUS ULTRASOUND WITH DOPPLER LOWER EXTREMITY, BILATERAL CLINICAL INFORMATION: History of left leg DVT now with recurrent bilateral leg pain. COMPARISON: Venous Doppler 06/05/2018. TECHNIQUE: Ultrasound of the deep veins is performed from the hip to the calf with compression sonography and color and pulse Doppler assessment. Spectral analysis with color-flow imaging is performed. FINDINGS: RIGHT: There is normal venous compression and respiratory variation and augmented flow. The visualized common femoral vein, superficial femoral vein, profunda femoral vein, popliteal vein, and the trifurcation region shows no evidence of deep venous thrombosis. There is no significant popliteal fossa cyst. LEFT: There is normal venous compression and respiratory variation and augmented flow. The visualized common femoral vein, superficial femoral vein, profunda femoral vein, popliteal vein, and the trifurcation region shows no evidence of deep venous thrombosis. There is no significant popliteal fossa cyst. If the patient's symptoms persist, followup ultrasound in 5 days 7 days might be of value to exclude proximal propagation from a non-visualized calf vein. US/US venous duplex LE BI IMPRESSION: No DVT demonstrated in the bilateral lower extremities.
== END 2022-09-02 09:13 | disposition home or self-care (01) ==
LOC: HO.US 09:12
PROVIDERS: Visit Provider Internal Medicine Medical Oncology
DX: I82.409 Acute embolism and thrombosis of unspecified deep veins of unspecified lower extremity (principal)
CPT/HCPCS: 93970

== ENCOUNTER → 2022-10-27 09:42 | Outpatient (BNVA) | payer OTHER, SELFPAY | PROVIDERS: Visit Provider Urology | DX: Q61.3 Polycystic kidney, unspecified (principal) | CPT/HCPCS: 51798; 99212 ==

== ENCOUNTER 2022-12-14 10:45 | Outpatient (REF) | payer OTHER, SELFPAY ==
[2022-12-14 11:17] LABS: MANUAL DIFF FLAG NO
[2022-12-14 11:52] LABS: Basophils Percent Auto 0.7 % (0-2); Eosinophils Absolute Auto 0.1 X10*3/uL (0.0-0.4); Eosinophils Percent Auto 1.9 % (0-4); Hematocrit 42.1 % (42.0-52.0); Hemoglobin 13.9 g/dl (14.0-18.0); Imm Gran Abs Auto 0.01 X10*3/uL (0.00-0.03); Imm Gran Pct Auto 0.2 % (0.0-0.4); Lymphocytes Absolute Auto 1.8 X10*3/uL (1.2-4.9); Lymphocytes Percent Auto 34.2 % (20-40); Mean Corpuscular Hemoglobin 29.1 pg (27.0-33.0); Mean Corpuscular Volume 88.3 fL (80.0-98.0); Monocytes Absolute Auto 0.5 X10*3/uL (0.1-1.2); Monocytes Percent Auto 9.3 % (2-11); Neutrophils Absolute Auto 2.9 x10*3/uL (2.0-8.3); Neutrophils Percent Auto 53.7 % (45-73); Platelet Count 214 X10*3/uL (160-400); Red Blood Count 4.77 X10*6/uL (4.60-5.80); Red Cell Distribution Width 12.9 % (11.0-16.0); White Blood Count 5.4 X10*3/uL (4.8-10.8)
[2022-12-14 11:53] LABS: Estimated Average Glucose 108 mg/dL; Hemoglobin A1c % 5.4 %
[2022-12-14 12:23] LABS: Alanine Aminotransferase 50 U/L (0-40); Alkaline Phosphatase 54 U/L (39-117); Anion Gap 9 (12-20); Aspartate Amino Transferase 31 U/L (5-37); Bilirubin Total 0.6 mg/dL (0.0-1.0); Blood Urea Nitrogen 10 mg/dL (9-16); Calcium 9.2 mg/dL (8.4-10.2); Carbon Dioxide 28 mmol/L (22-29); Chloride 109 mmol/L (96-108); Cholesterol 142 mg/dL; Estimated Glomerular Filt Rate > 60; Glucose Fasting 115 mg/dL (60-99); HDL Cholesterol 39 mg/dL; LDL Cholesterol Calculated 71 mg/dl; Potassium 4.3 mmol/L (3.3-5.1); Sodium 142 mmol/L (135-145); Total Protein 7.2 g/dL (6.5-8.0); Triglycerides 161 mg/dL
[2022-12-14 12:29] LABS: Creatinine Urine 308.86 mg/dL
[2022-12-14 12:41] LABS: Vitamin D 25-OH Total 28.7 ng/mL (>30)
== END 2022-12-14 10:46 | disposition home or self-care (01) ==
LOC: HO.LAB 10:45
PROVIDERS: PCP Internal Medicine; Visit Provider Internal Medicine
DX: E78.00 Pure hypercholesterolemia, unspecified (principal); E11.9 Type 2 diabetes mellitus without complications; E55.9 Vitamin D deficiency, unspecified; I10 Essential (primary) hypertension
CPT/HCPCS: 36415; 80053; 80061; 82043; 82306; 83036; 84443; 85025

== ENCOUNTER 2022-12-14 14:44 | Outpatient (AMB) | payer OTHER, SELFPAY ==
[2022-12-14 15:11] VITALS: BP 132/86; PULSE 86; O2SAT 96; BMI 35.8
--- NOTE | 2022-12-14 15:11 | MHC.PC.OV ---
Vital Signs 12/14/22 15:11 Height 5 ft 9 in Weight 242 lb 8 oz BMI 35.8 BP 132/86 Blood Pressure Location Lt brachial Position Sitting Pulse 86 Pulse Source Pulse Oximeter Pulse Oximetry (%) 96 Oxygen Delivery Method Room Air Intake Visit Reasons: 4 month f/u Superintendent Commissary Required: No Accompanied by: Self / Same As Patient Allergies No Known Allergies Allergy (Verified 12/14/22 16:05) Medication List - Last Reconciled 12/14/22 by Edward Lockwood MD acarbose 25 mg PO DAILY acetaminophen 650 mg PO Q4H PRN aspirin 81 mg PO DAILY benztropine 0.5 mg PO DAILY PRN blood pressure monitor As directed [BLOOD PRESSURE MONITOR As directed] blood sugar diagnostic (FreeStyle Lite Strips) As directed once a day blood sugar diagnostic As directed blood-glucose meter (FreeStyle Lite Meter kit) As directed blood-glucose meter As directed [BOTABAY HANDICAP GRAB BARS As directed] bupropion HCl 150 mg PO QAM 30 days cholecalciferol (vitamin D3) 25 mcg PO DAILY clonazepam 1 mg PO DAILY PRN 30 days cyanocobalamin (vitamin B-12) 100 mcg PO DAILY cyclobenzaprine 5 mg PO TID PRN diphenhydramine HCl 25 - 50 mg (1 - 2 x 25 mg) PO QID PRN docusate sodium (Colace) 100 mg PO BID famotidine 20 mg PO BID flash glucose sensor (FreeStyle Della 2 Sensor kit) As directed fluoxetine 20 mg PO DAILY 90 days gabapentin 600 mg PO TID gabapentin 400 mg PO TID lancets (FreeStyle Lancets) As directed once a day lancets As directed lisinopril 7.5 mg (1.5 x 5 mg) PO DAILY 90 days loratadine 10 mg PO DAILY magnesium oxide 400 mg PO DAILY meloxicam 7.5 mg PO DAILY multivitamin 1 tab PO DAILY nortriptyline 50 mg PO DAILY omeprazole 40 mg PO DAILY ondansetron HCl (Zofran) 4 mg PO Q8H PRN [Raised Toilet Seat with Adjustable padded arms - measured at 18.5 - 21.5 As directed] [SHOWER GRAB BARS As directed] sucralfate (Carafate) 1 g PO QIDACHS 15 days trazodone 50 mg PO BEDTIME 30 days ursodiol 600 mg PO DAILY varenicline 1 mg PO BID 28 days ziprasidone HCl (Geodon) 40 mg PO BID 30 days zolpidem (Ambien) 10 mg PO BEDTIME PRN 30 days Tobacco use date assessed: 12/14/22 Dental Screening Dental Screen Date: 12/14/22 Did you have a dental visit in the last 12 months?: No Did you have a dental problem in the last 6 months where you did not have access to dental care?: No Was dental information given to patient?: Patient has dentist HPI 4 month f/u HPI Details Patient comes in today for his follow up visit States that he has been experiencing recurrent/frequent headaches again for the past few weeks Notes that his headache this time is localized mostly over the right occipital area (headaches used to occur more often over the right frontal area where he had his subarachnoid hemorrhage a couple of years ago Notes (+) dizziness and nausea at times when he has increased headaches States that bright lights also tend to bother him more when his headaches flare up He denies any associated blurring of vision of changes in his vision He continues to take Nortriptyline 50 mg Q HS for headache prophylaxis and has been on this Rx for a few years now States that he takes this every night and it still sort of knocks him out and helps him sleep better but he sometimes find it hard to wake up when he still feels groggy from the effects of the Rx Head CT last done in January 2022 revealed (+) encephalomalacia in the right frontal lobe area related to his previous hemorrhage but no other abnormalities noted He is also scheduled to be seen by [facility]rology for follow up next week on 12/23/2022 Recalls getting a follow up renal US at [facility] a few weeks ago (ordered by urology/nephrology) for his polycystic kidneys - was advised that someone will call him up if anything unusual comes up on his US States that he has not received any call back since He denies any chest pains, no increased SOB No vomiting, no abdominal pain and no change in bowel habits noted His states that patient needs a few of his psych meds refilled for now as patient is in-between psychiatrists at this time Had his follow up labs done earlier today - to discuss his results [facility] Medical History Depression with anxiety Diabetes mellitus Epigastric abdominal pain GERD (gastroesophageal reflux disease) Hiatal hernia Hypertension Insomnia Lyme disease Mixed hyperlipidemia Mood disorder Morbid obesity Morbid obesity with BMI of 40.0-44.9, adult Obesity (BMI 30-39.9) Obstructive sleep apnea Osteoarthritis Polycystic kidney disease Pulmonary embolism Stroke Subarachnoid hemorrhage Umbilical hernia Surgical History Gastric bypass status for obesity H/O umbilical hernia repair History of back surgery S/P laparoscopic appendectomy Status post repair of ventral hernia Family History Mother History of diabetes mellitus Maternal Grandmother History of diabetes mellitus History of hypertension History of breast cancer Sister History of diabetes mellitus Social History Household Members: Spouse and Children Housing: Apartment Are you a primary home health care provider to a significant other at home: No Do you presently have visiting nurse or other home services: Yes Alcohol intake: current Alcohol intake frequency: holidays/special occasions only Alcohol type: beer Patient Tobacco Use Status: Former Tobacco user Tobacco use type: Cigarette Cigarettes Per Day: 5 Second Hand Smoke Exposure: Yes service: No Current occupational status: disabled Cognitive needs: No Hearing needs: No Vision needs: No Questionnaire PHQ-9 Over the last 2 weeks, how often have you been bothered by any of the following problems? 1. Little interest or pleasure in doing things: not at all 2. Feeling down, depressed, or hopeless: not at all 3. Trouble falling or staying asleep, or sleeping too much: not at all 4. Feeling tired or having little energy: not at all 5. Poor appetite or overeating: not at all 6. Feeling bad about yourself - or that you are a failure or have let yourself or your family down: not at all 7. Trouble concentrating on things, such as reading the newspaper or watching television: not at all 8. Moving or speaking so slowly that other people could have noticed. Or the opposite - being so fidgety or restless that you have been moving around a lot more than usual: not at all 9. Thoughts that you would be better off or of hurting yourself in some way: not at all Total score: 0 Depression Screening Interpretation: Negative 05656 - PHQ-9 Billing: Yes Source: Developed by Drs. Bartolo Edwards, Gina Cowan, Theo Costello and colleagues, with an educational karma from [employer]. Thrive Questionnaire Date Thrive assessed: 12/14/22 I am a: Patient What is your living situation today?: I have a steady place to live Within the past 12 months, did the food you bought not last and you didn't have the money to get more?: Never true Within the past 12 months, did you worry whether your food would run out before you got money to buy more?: Never true Do you have trouble paying for medicines?: No Do you have trouble getting transportation to medical appointments?: No Do you have trouble paying your heating and electricity bill?: No Do you have trouble taking care of your child, family member or friend?: No Do you have trouble with day-to-day activities such as bathing, preparing meals, shopping, managing finances, etc.?: No Are you currently unemployed and looking for a job?: No Are you interested in more education?: No Please select the resources that you would like help with: None Currently or been in a relationship where the following occur: no concerns reported AUDIT C Alcohol Use Questionnaire (AUDIT-C) 1. How often do you have a drink containing alcohol?: Monthly or less 2. How many drinks containing alcohol do you have on a typical day when you are drinking?: 1 or 2 3. How often do you have six or more drinks on one occasion?: Never Total Score: 1 Score Reviewed/Action Taken: Yes PAOLA-7 AMB Questionnaire PAOLA-7 Date PAOLA - 7 assessed: 12/14/22 Feeling nervous, anxious, or on edge: 0 = Not at all Not being able to stop or control worryin = Not at all Worrying too much about different things: 0 = Not at all Trouble relaxin = Not at all Being so restless that it is hard to sit still: 0 = Not at all Becoming easily annoyed or irritable: 0 = Not at all Feeling afraid as if something awful might happen: 0 = Not at all Total PAOLA-7 score (0-4 normal; 5-9 mild; 10-14 moderate; 15-21 severe): 0 Source: Developed by Drs. Bartolo Edwards, Gina Cowan, Theo Costello and colleagues, with an educational karma from [employer]. Review of Systems Const Denies chills, Reports fatigue, Denies fever(s) and Reports headache(s) (recurrent/frequent, mostly over the right occipital area - see HPI) Eyes Denies change in vision ENT Denies dysphagia, Reports dizziness (at times, associated with headaches), Denies otalgia, Reports headache(s) (recurrent/frequent, mostly over the right occipital area - see HPI), Reports neck pain and Denies sore throat Card Denies chest pain, Denies palpitations and Denies dyspnea Resp Denies cough and Denies dyspnea GI Denies abdominal pain, Denies constipation, Denies dysphagia, Denies diarrhea, Reports nausea (occasionally, associated with headaches) and Denies vomiting Denies dysuria, Denies nocturia and Denies urinary frequency Musc Reports neck pain Neuro Reports dizziness (at times, associated with headaches), Reports headache(s) (recurrent/frequent, mostly over the right occipital area - see HPI), Denies focal weakness and Denies Sensory deficit (Neuro) Endo Reports fatigue and Denies palpitations Physical exam (Primary Care) Vital Signs: Last Vital Signs Pulse 86 12/14/22 15:11 BP 132/86 12/14/22 15:11 Pulse Ox 96 12/14/22 15:11 Oxygen Delivery Method Room Air 12/14/22 15:11 BMI result Body Mass Index 35.8 Tobacco/Smoking Status: Tobacco use Status Tobacco use date assessed 12/14/22 12/14/22 15:14 Patient Tobacco Use Status Former Tobacco user 12/14/22 15:14 Tobacco use type Cigarette 12/14/22 15:14 PHQ-9: PHQ-9 Score PHQ-9: Total score 0 12/14/22 15:26 Depression Screening Interpretation: Negative Thrive Assessment: Date of Thrive Assessment Date Thrive assessed 12/14/22 12/14/22 15:14 Currently or been in a relationship where the following occur: no concerns reported Const General: no acute distress and alert Orientation/consciousness: patient oriented x3 HENMT Head: Yes scalp tenderness (mild, over the right occipital area) Ears: TM's normal bilaterally and EAC's normal Throat: Yes posterior oropharynx normal and Yes tonsils normal (no TP congestion noted) Neck Neck: Yes no lymphadenopathy and Yes supple Resp Auscultation: clear to auscultation bilaterally, no rales and no wheezes Cardio Rate: regular rate Rhythm: regular rhythm Heart sounds: no murmurs GI Palpation (GI): Soft to palpation and nontender Auscultation: normal bowel sounds Neuro General: patient oriented x3 Sensory Exam: No Sensory deficit (Neuro) Extrem General: Yes no clubbing, cyanosis or edema Results Reviewed Results Reviewed: Laboratory Tests 12/14/22 12/14/22 12/14/22 11:16 11:16 11:16 WBC 5.4 Hgb 13.9 L Hct 42.1 Plt Count 214 Sodium 142 Potassium 4.3 Creatinine 1.00 Estimated GFR > 60 Fasting Glucose 115 H Hemoglobin A1c % 5.4 Calcium 9.2 AST 31 ALT 50 H Triglycerides 161 Cholesterol 142 LDL Cholesterol, Calc 71 HDL Cholesterol 39 25-OH Vitamin D Total 28.7 TSH 1.60 Assessment and Plan Assessment & Plan (1) Recurrent occipital headache: Code(s): R51.9 - Headache, unspecified Plan: Continue Nortriptyline 50 mg Q HS for now Follow up with [facility] as scheduled Will send him for a repeat head CT for further evaluation (2) Subarachnoid hemorrhage: Code(s): I60.9 - Nontraumatic subarachnoid hemorrhage, unspecified Plan: Occurred spontaneously in the right frontal lobe in 09/2020, 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 in the setting of polycystic kidney disease His previous left-sided hemiparesis has resolved but he still has residual right-sided headaches, which have been controlled with Nortriptyline up until a few weeks ago when his right-sided occipital headaches started occurring Follow up with neurology as scheduled (3) Hypertension: Code(s): I10 - Essential (primary) hypertension Qualifiers: Hypertension type: primary hypertension Qualified Code(s): I10 - Essential (primary) hypertension Plan: Reinforced low sodium diet - goal is systolic BP of at least 120 mm or less Continue Lisinopril 7.5 mg (5 mg x 1.5 tablets) QD Follow up with nephrology as scheduled (4) Diabetes mellitus: Code(s): E11.9 - Type 2 diabetes mellitus without complications Qualifiers: Diabetes mellitus type: type 2 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: without group home use Diabetes mellitus complication status: with hyperglycemia Qualified Code(s): E11.65 - Type 2 diabetes mellitus with hyperglycemia Plan: HgbA1c done earlier today is normal at 5.4% (in-office HgbA1c was at 5.5% a few months ago) - goal is <7.0% Reinforced diabetic diet Continue Metformin 1000 mg BID (5) Mixed hyperlipidemia: Code(s): E78.2 - Mixed hyperlipidemia Plan: Results of his labs done earlier this morning reviewed and discussed with patient - his lipids, aside from his serum triglycerides that went up to 161 mg/dl, are at goal Reinforced low cholesterol diet (6) Polycystic kidney disease: Code(s): Q61.3 - Polycystic kidney, unspecified Plan: Follow up with nehphrology as scheduled Reportedly had a renal sonogram done at [facility] a few weeks ago, which we assume came back with no changes as patient states that he never received a call back regarding his results States that he has been advised that he will need a kidney transplant at some point in the future (7) GERD (gastroesophageal reflux disease): Code(s): K21.9 - Gastro-esophageal reflux disease without esophagitis Qualifiers: Esophagitis presence: without esophagitis Qualified Code(s): K21.9 - Gastro-esophageal reflux disease without esophagitis Plan: Dietary restrictions reinforced Continue Omeprazole 20 mg QD (8) Obstructive sleep apnea: Code(s): G47.33 - Obstructive sleep apnea (adult) (pediatric) Plan: Continue using his CPAP device daily when sleeping at night (9) Insomnia: Code(s): G47.00 - Insomnia, unspecified Qualifiers: Insomnia type: unspecified Qualified Code(s): G47.00 - Insomnia, unspecified Plan: Sleep hygiene reinforced Continue Zolpidem 10 mg QHS and Trazodone 50 mg QHS - Rx refilled, per request (10) Mood disorder: Code(s): F39 - Unspecified mood [affective] disorder Plan: Continue Fluoxetine 10 mg BID, Ziprasidone 40 mg BID and Clonazepam 1 mg QD PRN Follow up with psychiatry as scheduled (11) Obesity (BMI 30-39.9): Code(s): E66.9 - Obesity, unspecified Plan: Reinforced diet/exercise as tolerated/lose weight Follow-up with weight management as scheduled Plan Follow up in 4 months Orders: Orders CT head/brain wo IV con Today R51.9 - Headache, unspecified Medications: New trazodone 50 mg PO BEDTIME 30 days 30 tabs 2RF Changed From aspirin 1 tab PO DAILY 90 tabs 6RF To aspirin 81 mg PO DAILY Refilled zolpidem (Ambien) 10 mg PO BEDTIME 30 days PRN 30 tabs 1RF insomnia G47.00 - Insomnia, unspecified ziprasidone HCl (Geodon) give with food (meal/snack) 40 mg PO BID 30 days 60 caps 3RF clonazepam 1 mg PO DAILY 30 days PRN 30 tabs 0RF anxiety F41.8 - Other specified anxiety disorders Coding Level of Care Code Est Pt Level 4 (77392) Diagnoses Recurrent occipital headache R51.9 Subarachnoid hemorrhage I60.9 Hypertension I10 Hypertension type: primary hypertension Diabetes mellitus E11.65 Diabetes mellitus type: type 2 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
== END 2022-12-14 16:08 | disposition home or self-care (01) ==
PROVIDERS: PCP Internal Medicine; Visit Provider Internal Medicine
DX: R51.9 Headache, unspecified (principal); I10 Essential (primary) hypertension; K21.9 Gastro-esophageal reflux disease without esophagitis; I60.9 Nontraumatic subarachnoid hemorrhage, unspecified; E11.65 Type 2 diabetes mellitus with hyperglycemia; E78.2 Mixed hyperlipidemia; Q61.3 Polycystic kidney, unspecified; G47.33 Obstructive sleep apnea (adult) (pediatric); G47.00 Insomnia, unspecified; F39 Unspecified mood [affective] disorder; E66.9 Obesity, unspecified
CPT/HCPCS: 99214

== ENCOUNTER 2022-12-20 08:24 | Outpatient (REF) | payer OTHER, SELFPAY ==
--- NOTE | ~2022-12-20 | CT_ITS ---
EXAMINATION: CT HEAD WITHOUT CONTRAST CLINICAL INFORMATION: Headache. COMPARISON: Comparison is made to 02/10/[address] scan. TECHNIQUE: Contiguous axial imaging was performed from the skull base to vertex without intravenous administration of contrast. Coronal and sagittal reformatted images were obtained. This CT examination was performed using dose optimization techniques as appropriate, variously including the following: *Automated exposure control *Adjustment of mA and/or kV according to patient size (this includes techniques or standardized protocols for targeted exams where dose is matched to indication/reason for exam; i.e. extremities or head) *Use of iterative reconstruction technique DLP: 955 mGy-cm FINDINGS: The cortical sulci are normal. The lateral ventricles are symmetrical. The third and fourth ventricles are in their normal midline position. The basilar and prepontine cisterns are unremarkable. There is no acute intra or extracerebral abnormality. There is no mass effect or midline shift. Sections through the bony calvarium are unremarkable. The paranasal sinuses show mild mucosal thickening with retention cyst/inflammatory polyps. The largest is seen inferiorly in the right maxillary sinus measuring up to 3.0 cm (image 4, series 6). No air-fluid levels. The mastoid air cells are clear. There is hypoaeration of the mastoid processes bilaterally. CT/CT head/brain wo IV con IMPRESSION: 1. No acute intracranial pathology. 2. Mild inflammatory changes in the paranasal sinuses.
== END 2022-12-20 08:25 | disposition home or self-care (01) ==
LOC: HO.CT 08:24
PROVIDERS: PCP Internal Medicine; Visit Provider Internal Medicine
DX: R51.9 Headache, unspecified (principal)
CPT/HCPCS: 70450

== ENCOUNTER 2023-03-11 12:19 | Outpatient (AMB) | payer OTHER, SELFPAY ==
[2023-03-11 12:32] VITALS: BP 132/80; PULSE 88; O2SAT 97; BMI 35.6
--- NOTE | 2023-03-11 12:32 | A.OFFPC_ITS ---
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 Required: No Accompanied by: Self / Same As Patient Allergies No Known Allergies Allergy (Verified 03/11/23 12:50) Medication List - Last Reconciled 03/11/23 by Edward Lockwood MD acarbose 25 mg PO DAILY acetaminophen 650 mg PO Q4H PRN aspirin 81 mg PO DAILY blood pressure monitor As directed [BLOOD PRESSURE MONITOR As directed] blood sugar diagnostic (FreeStyle Lite Strips) As directed once a day blood sugar diagnostic As directed blood-glucose meter (FreeStyle Lite Meter kit) As directed blood-glucose meter As directed [BOTABAY HANDICAP GRAB BARS As directed] bupropion HCl 300 mg PO QAM 90 days cholecalciferol (vitamin D3) 25 mcg PO DAILY clonazepam 1 mg PO DAILY PRN 30 days cyanocobalamin (vitamin B-12) 100 mcg PO DAILY cyclobenzaprine 5 mg PO TID PRN diphenhydramine HCl 25 - 50 mg (1 - 2 x 25 mg) PO QID PRN docusate sodium (Colace) 100 mg PO BID famotidine 20 mg PO BID flash glucose sensor (FreeStyle Della 2 Sensor kit) As directed fluoxetine 30 mg (3 x 10 mg) PO DAILY 90 days gabapentin 100 mg PO TID lancets (FreeStyle Lancets) As directed once a day lancets As directed lisinopril 7.5 mg (1.5 x 5 mg) PO DAILY 90 days loratadine 10 mg PO DAILY magnesium oxide 400 mg PO DAILY meloxicam 7.5 mg PO DAILY multivitamin 1 tab PO DAILY nortriptyline 50 mg PO DAILY omeprazole 40 mg PO DAILY ondansetron HCl (Zofran) 4 mg PO Q8H PRN quetiapine 50 mg PO BID [Raised Toilet Seat with Adjustable padded arms - measured at 18.5 - 21.5 As directed] [SHOWER GRAB BARS As directed] sucralfate (Carafate) 1 g PO QIDACHS 15 days ursodiol 600 mg PO DAILY varenicline 1 mg PO BID 28 days zolpidem (Ambien) 10 mg PO BEDTIME PRN 30 days Tobacco use date assessed: 03/11/23 Dental Screening Dental Screen Date: 03/11/23 Did you have a dental visit in the last 12 months?: No Did you have a dental problem in the last 6 months where you did not have access to dental care?: No Was dental information given to patient?: Patient has dentist HPI Minervakaila Kelly 02/16 Suicidal Attempt HPI Details Patient comes in today for his [facility] follow up visit - he was discharged from [facility] about 3 weeks ago on 02/16/2023, where he spent a few days following a suicide attempt last month by ingesting took several tablets of his Trazodone due to increasing depression He was initially seen in the ER at [facility] and was checked and monitored in the ER for a few hours for any arrhythmia or QT prolongation; was also reportedly treated with activated charcoal Was referred for crisis evaluation and once patient was medically stable and cleared, he was then transferred to [facility] for inpatient psychiatry admission Patient states that he is currently feeling okay and seems to be doing better with some changes made to his meds since - med list update He currently denies any dizziness; still has occasional occipital headaches but states that they are occurring much less often than before Denies any chest pains, no SOB No nausea/vomiting, no abdominal pain No change in bowel habits noted He continues to follow up with his therapist once a week and has appointment scheduled to see psychiatry next Tuesday at 3 PM - goes to [facility] Medical History Mood disorder Mixed hyperlipidemia Polycystic kidney disease Obesity (BMI 30-39.9) Epigastric abdominal pain Stroke Insomnia Morbid obesity with BMI of 40.0-44.9, adult Subarachnoid hemorrhage Umbilical hernia Pulmonary embolism Lyme disease Osteoarthritis Depression with anxiety Hiatal hernia Obstructive sleep apnea Morbid obesity GERD (gastroesophageal reflux disease) Diabetes mellitus Hypertension Surgical History Status post repair of ventral hernia H/O umbilical hernia repair S/P laparoscopic appendectomy History of back surgery Gastric bypass status for obesity Family History Mother History of diabetes mellitus Maternal Grandmother History of diabetes mellitus History of hypertension History of breast cancer Sister History of diabetes mellitus Social History Household Members: Spouse and Children Housing: Apartment Are you a primary child care attendant to a significant other at home: No Do you presently have visiting nurse or other home services: Yes Alcohol intake: current Alcohol intake frequency: holidays/special occasions only Alcohol type: beer Patient Tobacco Use Status: Former Tobacco user Tobacco use type: Cigarette Cigarettes Per Day: 5 Second Hand Smoke Exposure: Yes service: No Current occupational status: disabled Cognitive needs: No Hearing needs: No Vision needs: No Questionnaire PHQ-9 Over the last 2 weeks, how often have you been bothered by any of the following problems? 1. Little interest or pleasure in doing things: not at all 2. Feeling down, depressed, or hopeless: not at all 3. Trouble falling or staying asleep, or sleeping too much: not at all 4. Feeling tired or having little energy: not at all 5. Poor appetite or overeating: not at all 6. Feeling bad about yourself - or that you are a failure or have let yourself or your family down: not at all 7. Trouble concentrating on things, such as reading the newspaper or watching television: not at all 8. Moving or speaking so slowly that other people could have noticed. Or the opposite - being so fidgety or restless that you have been moving around a lot more than usual: not at all 9. Thoughts that you would be better off or of hurting yourself in some way: not at all Total score: 0 Depression Screening Interpretation: Negative Depression Screening Done: Yes 40783 - PHQ-9 Billing: Yes Source: Developed by Drs. Bartolo Edwards, Gina Cowan, Theo Costello and colleagues, with an educational karma from [email or web address]. Thrive Questionnaire Date Thrive assessed: 03/11/23 I am a: Patient What is your living situation today?: I have a steady place to live Within the past 12 months, did the food you bought not last and you didn't have the money to get more?: Never true Within the past 12 months, did you worry whether your food would run out before you got money to buy more?: Never true Do you have trouble paying for medicines?: No Do you have trouble getting transportation to medical appointments?: No Do you have trouble paying your heating and electricity bill?: No Do you have trouble taking care of your child, family member or friend?: No Do you have trouble with day-to-day activities such as bathing, preparing meals, shopping, managing finances, etc.?: No Are you currently unemployed and looking for a job?: No Are you interested in more education?: No Please select the resources that you would like help with: None Currently or been in a relationship where the following occur: no concerns reported AUDIT C Alcohol Use Questionnaire (AUDIT-C) 1. How often do you have a drink containing alcohol?: Monthly or less 2. How many drinks containing alcohol do you have on a typical day when you are drinking?: 1 or 2 3. How often do you have six or more drinks on one occasion?: Never Total Score: 1 Score Reviewed/Action Taken: Yes PAOLA-7 AMB Questionnaire PAOLA-7 Date PAOLA - 7 assessed: 03/11/23 Feeling nervous, anxious, or on edge: 0 = Not at all Not being able to stop or control worryin = Not at all Worrying too much about different things: 0 = Not at all Trouble relaxin = Not at all Being so restless that it is hard to sit still: 0 = Not at all Becoming easily annoyed or irritable: 0 = Not at all Feeling afraid as if something awful might happen: 0 = Not at all Total PAOLA-7 score (0-4 normal; 5-9 mild; 10-14 moderate; 15-21 severe): 0 Source: Developed by Drs. Bartolo Edwards, Gina Cowan, Theo Costello and colleagues, with an educational karma from [email or web address]. Review of Systems Const Denies chills, Reports fatigue, Denies fever(s) and Reports headache(s) (on and off, over the occipital area) ENT Denies dysphagia, Denies dizziness, Denies otalgia, Reports headache(s) (on and off, over the occipital area), Reports neck pain, Denies odynophagia and Denies sore throat Card Denies chest pain, Denies palpitations and Denies dyspnea Resp Denies cough and Denies dyspnea GI Denies abdominal pain, Denies constipation, Denies dysphagia, Denies diarrhea, Denies nausea, Denies odynophagia and Denies vomiting Denies dysuria, Denies nocturia and Denies urinary frequency Musc Reports neck pain Skin/Breast Denies rash Neuro Denies dizziness, Reports headache(s) (on and off, over the occipital area) and Denies focal weakness Psych Reports depression (better now) and Denies suicidal ideation (at present) Endo Reports fatigue and Denies palpitations Physical exam (Primary Care) Vital Signs: Last Vital Signs Pulse 88 03/11/23 12:32 BP 132/80 03/11/23 12:32 Pulse Ox 97 03/11/23 12:32 Oxygen Delivery Method Room Air 03/11/23 12:32 BMI result Body Mass Index 35.6 Tobacco/Smoking Status: Tobacco use Status Tobacco use date assessed 03/11/23 03/11/23 12:39 Patient Tobacco Use Status Former Tobacco user 03/11/23 12:39 Tobacco use type Cigarette 03/11/23 12:39 PHQ-9: PHQ-9 Score PHQ-9: Total score 0 03/11/23 12:39 Depression Screening Interpretation: Negative Thrive Assessment: Date of Thrive Assessment Date Thrive assessed 03/11/23 03/11/23 12:39 Currently or been in a relationship where the following occur: no concerns reported Const General: no acute distress and alert HENMT Head: Yes scalp tenderness (mild, over the right occipital area) Ears: TM's normal bilaterally and EAC's normal Throat: Yes posterior oropharynx normal and Yes tonsils normal (no TP congestion noted) Neck Neck: Yes no lymphadenopathy and Yes supple Resp Auscultation: clear to auscultation bilaterally, no rales and no wheezes Cardio Rate: regular rate Rhythm: regular rhythm Heart sounds: no murmurs GI Palpation (GI): Soft to palpation and nontender Auscultation: normal bowel sounds Extrem General: Yes no clubbing, cyanosis or edema Assessment and Plan Assessment & Plan (1) Suicide attempt: Code(s): T14.91XA - Suicide attempt, initial encounter Plan: Attempted to intentionally overdose on Trazodone 50 mg by ingestion several tablets at once followed by alcohol ingestion last month on 02/10/2023 He was treated with activated charcoal in the ER at [facility] and monitored overnight, and once stabilized, was transferred to [facility], where he spent a few days until he was discharged home on 02/16/2023 States that he's had no problems lately and follows up with his therapist weekly; has appt with psychiatry at [facility] coming up next Tuesday at 3 PM (2) Mood disorder: Code(s): F39 - Unspecified mood [affective] disorder Plan: Continue Bupropion XL 300 mg QD, Fluoxetine 10 mg 3 caps (30 mg ) QD, Gabapentin 100 mg TID, Quetiapine 50 mg BID and Clonazepam 1 mg QD PRN Follow up with psychiatry as scheduled - has appt with psychiatry at [facility] next Tuesday Plan Follow up as scheduled next month He is reminded to get his follow up labs done BEFORE he comes in for his appoi ntment next month Orders: Orders Complete Blood Count Auto Diff 04/11/23 I10 - Essential (primary) hypertension Comprehensive Rufe. Panel Fast 04/11/23 E78.00 - Pure hypercholesterolemia, unspecified Hemoglobin A1c 04/11/23 E11.9 - Type 2 diabetes mellitus without complications UA CC w/rflx Micro + Cult 04/11/23 R30.0 - Dysuria Vitamin D 25-OH Total 04/11/23 E55.9 - Vitamin D deficiency, unspecified Lipid Panel 04/11/23 E78.00 - Pure hypercholesterolemia, unspecified Microalbumin, Random (w Creat) 04/11/23 E11.9 - Type 2 diabetes mellitus without complications TSH reflex Free T4 04/11/23 E78.00 - Pure hypercholesterolemia, unspecified Coding Level of Care Code Est Pt Level 3 (90281) Diagnoses Suicide attempt T14.91XA Mood disorder F39
== END 2023-03-11 12:57 | disposition home or self-care (01) ==
PROVIDERS: PCP Internal Medicine; Visit Provider Internal Medicine
DX: T14.91XA Suicide attempt, initial encounter (principal); F39 Unspecified mood [affective] disorder
CPT/HCPCS: 99213

== ENCOUNTER 2023-04-11 10:17 | Outpatient (REF) | payer OTHER, SELFPAY ==
[2023-04-11 10:33] LABS: MANUAL DIFF FLAG NO
[2023-04-11 10:55] LABS: Basophils Percent Auto 0.6 % (0-2); Eosinophils Absolute Auto 0.2 X10*3/uL (0.0-0.4); Eosinophils Percent Auto 2.6 % (0-4); Hematocrit 46.1 % (42.0-52.0); Hemoglobin 15.3 g/dl (14.0-18.0); Imm Gran Abs Auto 0.02 X10*3/uL (0.00-0.03); Imm Gran Pct Auto 0.3 % (0.0-0.4); Lymphocytes Absolute Auto 1.8 X10*3/uL (1.2-4.9); Lymphocytes Percent Auto 28.7 % (20-40); Mean Corpuscular HGB Conc 33.2 g/dl (31.0-36.0); Mean Corpuscular Hemoglobin 28.4 pg (27.0-33.0); Mean Corpuscular Volume 85.7 fL (80.0-98.0); Mean Platelet Volume 9.3 fL (9.4-12.4); Monocytes Absolute Auto 0.4 X10*3/uL (0.1-1.2); Monocytes Percent Auto 5.8 % (2-11); Neutrophils Absolute Auto 3.8 x10*3/uL (2.0-8.3); Platelet Count 274 X10*3/uL (160-400); Red Blood Count 5.38 X10*6/uL (4.60-5.80); Red Cell Distribution Width 13.2 % (11.0-16.0); White Blood Count 6.2 X10*3/uL (4.8-10.8)
[2023-04-11 11:07] LABS: Estimated Average Glucose 120 mg/dL; Hemoglobin A1c % 5.8 % (<6.0)
[2023-04-11 11:10] LABS: Appearance Urine Clear; Color Urine Yellow; Glucose Urine UA Negative (Negative); Leukocyte Esterase Urine Negative (Negative); Nitrite Urine Negative (Negative); Urine Blood Negative (Negative); Urine Ketones Negative (Negative); Urine Protein Negative (Neg-Trace)
[2023-04-11 11:32] LABS: Alanine Aminotransferase 38 U/L (0-40); Albumin Level 4.3 g/dL (3.5-5.0); Alkaline Phosphatase 65 U/L (39-117); Anion Gap 14 (12-20); Aspartate Amino Transferase 28 U/L (5-37); Bilirubin Total 0.5 mg/dL (0.0-1.0); Blood Urea Nitrogen 12 mg/dL (9-16); Calcium 9.8 mg/dL (8.4-10.2); Carbon Dioxide 25 mmol/L (22-29); Chloride 108 mmol/L (96-108); Cholesterol 157 mg/dL (<200); Estimated Glomerular Filt Rate > 60; Glucose Fasting 96 mg/dL (60-99); HDL Cholesterol 50 mg/dL (>40); LDL Cholesterol Calculated 64 mg/dL (<100); Potassium 4.3 mmol/L (3.3-5.1); Sodium 143 mmol/L (135-145); Total Protein 8.2 g/dL (6.5-8.0); Triglycerides 215 mg/dL (<150)
[2023-04-11 11:50] LABS: TSH reflex Free T4 1.25 uIU/mL (0.32-4.0); Vitamin D 25-OH Total 19.4 ng/mL (>30)
[2023-04-11 12:36] LABS: Microalbum/Creatinine Ratio Ur 24.6 ug/mg cr (<30)
== END 2023-04-11 10:18 | disposition home or self-care (01) ==
LOC: HO.LAB 10:17
PROVIDERS: PCP Internal Medicine; Visit Provider Internal Medicine
DX: E78.00 Pure hypercholesterolemia, unspecified (principal); I10 Essential (primary) hypertension; E55.9 Vitamin D deficiency, unspecified; R30.0 Dysuria; E11.9 Type 2 diabetes mellitus without complications
CPT/HCPCS: 36415; 80053; 80061; 81003; 82043; 82306; 82570; 83036; 84443; 85025

== ENCOUNTER 2023-04-15 09:04 | Outpatient (AMB) | payer OTHER, SELFPAY ==
[2023-04-15 09:20] VITALS: BP 130/78; PULSE 93; O2SAT 95; BMI 35.7
--- NOTE | 2023-04-15 09:20 | MHC.PC.OV ---
Vital Signs 04/15/23 09:20 Height 5 ft 9 in Weight 242 lb BMI 35.7 BP 130/78 Blood Pressure Location Lt brachial Position Sitting Pulse 93 Pulse Source Pulse Oximeter Pulse Oximetry (%) 95 Oxygen Delivery Method Room Air Intake Visit Reasons: 4mth f/u Design Assembler Required: No Accompanied by: Self / Same As Patient Allergies No Known Allergies Allergy (Verified 04/15/23 10:12) Medication List - Last Reconciled 04/15/23 by Edward Lockwood MD acarbose 25 mg PO DAILY acetaminophen 650 mg PO Q4H PRN aspirin 81 mg PO DAILY blood pressure monitor As directed [BLOOD PRESSURE MONITOR As directed] blood sugar diagnostic (FreeStyle Lite Strips) As directed once a day blood sugar diagnostic As directed blood-glucose meter (FreeStyle Lite Meter kit) As directed blood-glucose meter As directed [BOTABAY HANDICAP GRAB BARS As directed] bupropion HCl 300 mg PO QAM 90 days cholecalciferol (vitamin D3) 25 mcg PO DAILY clonazepam 1 mg PO DAILY PRN 30 days cyanocobalamin (vitamin B-12) 100 mcg PO DAILY cyclobenzaprine 5 mg PO TID PRN diphenhydramine HCl 25 - 50 mg (1 - 2 x 25 mg) PO QID PRN docusate sodium (Colace) 100 mg PO BID famotidine 20 mg PO BID flash glucose sensor (FreeStyle Della 2 Sensor kit) As directed fluoxetine 30 mg (3 x 10 mg) PO DAILY 90 days gabapentin 100 mg PO TID lancets (FreeStyle Lancets) As directed once a day lancets As directed lisinopril 7.5 mg (1.5 x 5 mg) PO DAILY 90 days loratadine 10 mg PO DAILY magnesium oxide 400 mg PO DAILY meloxicam 7.5 mg PO DAILY multivitamin 1 tab PO DAILY nortriptyline 50 mg PO DAILY omeprazole 40 mg PO DAILY ondansetron HCl (Zofran) 4 mg PO Q8H PRN quetiapine 50 mg PO BID [Raised Toilet Seat with Adjustable padded arms - measured at 18.5 - 21.5 As directed] [SHOWER GRAB BARS As directed] sucralfate (Carafate) 1 g PO QIDACHS 15 days ursodiol 600 mg PO DAILY varenicline 1 mg PO BID 28 days zolpidem (Ambien) 10 mg PO BEDTIME PRN 30 days Tobacco use date assessed: 04/15/23 Dental Screening Dental Screen Date: 04/15/23 Did you have a dental visit in the last 12 months?: No Did you have a dental problem in the last 6 months where you did not have access to dental care?: No Was dental information given to patient?: No HPI 4mth f/u HPI Details Patient comes in today for his follow up visit States that he feels okay He denies any dizziness and states that his headaches have been well-controlled lately Denies any chest pains, no SOB No nausea/vomiting, no abdominal pain No change in bowel habits noted Had his follow up labs done a few days ago - to discuss his results [facility] Medical History Mood disorder Mixed hyperlipidemia Polycystic kidney disease Obesity (BMI 30-39.9) Epigastric abdominal pain Stroke Insomnia Morbid obesity with BMI of 40.0-44.9, adult Subarachnoid hemorrhage Umbilical hernia Pulmonary embolism Lyme disease Osteoarthritis Depression with anxiety Hiatal hernia Obstructive sleep apnea Morbid obesity GERD (gastroesophageal reflux disease) Diabetes mellitus Hypertension Surgical History Status post repair of ventral hernia H/O umbilical hernia repair S/P laparoscopic appendectomy History of back surgery Gastric bypass status for obesity Family History Mother History of diabetes mellitus Maternal Grandmother History of diabetes mellitus History of hypertension History of breast cancer Sister History of diabetes mellitus Social History Household Members: Spouse and Children Housing: Apartment Are you a primary healthcare or medical to a significant other at home: No Do you presently have visiting nurse or other home services: Yes Alcohol intake: current Alcohol intake frequency: holidays/special occasions only Alcohol type: beer Patient Tobacco Use Status: Former Tobacco user Tobacco use type: Cigarette Cigarettes Per Day: 5 e-Cigarette/Vaping Use: Never Used Second Hand Smoke Exposure: Yes service: No Current occupational status: disabled Cognitive needs: No Hearing needs: No Vision needs: No Questionnaire PHQ-9 Over the last 2 weeks, how often have you been bothered by any of the following problems? 1. Little interest or pleasure in doing things: not at all 2. Feeling down, depressed, or hopeless: not at all 3. Trouble falling or staying asleep, or sleeping too much: not at all 4. Feeling tired or having little energy: not at all 5. Poor appetite or overeating: not at all 6. Feeling bad about yourself - or that you are a failure or have let yourself or your family down: not at all 7. Trouble concentrating on things, such as reading the newspaper or watching television: not at all 8. Moving or speaking so slowly that other people could have noticed. Or the opposite - being so fidgety or restless that you have been moving around a lot more than usual: not at all 9. Thoughts that you would be better off or of hurting yourself in some way: not at all Total score: 0 Depression Screening Interpretation: Negative (is on multiple Rx and sees psychiatry for his depression) Depression Screening Done: Yes 52575 - PHQ-9 Billing: Yes Source: Developed by Drs. Bartolo Edwards, Gina Cowan, Theo Costello and colleagues, with an educational karma from [employer]. Thrive Questionnaire Date Thrive assessed: 04/15/23 I am a: Patient What is your living situation today?: I have a steady place to live Within the past 12 months, did the food you bought not last and you didn't have the money to get more?: Never true Within the past 12 months, did you worry whether your food would run out before you got money to buy more?: Never true Do you have trouble paying for medicines?: No Do you have trouble getting transportation to medical appointments?: No Do you have trouble paying your heating and electricity bill?: No Do you have trouble taking care of your child, family member or friend?: No Do you have trouble with day-to-day activities such as bathing, preparing meals, shopping, managing finances, etc.?: No Are you currently unemployed and looking for a job?: No Are you interested in more education?: No Please select the resources that you would like help with: None Currently or been in a relationship where the following occur: no concerns reported AUDIT C Alcohol Use Questionnaire (AUDIT-C) 1. How often do you have a drink containing alcohol?: Monthly or less 2. How many drinks containing alcohol do you have on a typical day when you are drinking?: 1 or 2 3. How often do you have six or more drinks on one occasion?: Never Total Score: 1 Score Reviewed/Action Taken: Yes PAOLA-7 AMB Questionnaire PAOLA-7 Date PAOLA - 7 assessed: 04/15/23 Feeling nervous, anxious, or on edge: 0 = Not at all Not being able to stop or control worryin = Not at all Worrying too much about different things: 0 = Not at all Trouble relaxin = Not at all Being so restless that it is hard to sit still: 0 = Not at all Becoming easily annoyed or irritable: 0 = Not at all Feeling afraid as if something awful might happen: 0 = Not at all Total PAOLA-7 score (0-4 normal; 5-9 mild; 10-14 moderate; 15-21 severe): 0 Source: Developed by Drs. Bartolo Edwards, Gina Cowan, Theo Costello and colleagues, with an educational karma from [employer]. Review of Systems Const Denies chills, Denies fatigue, Denies fever(s) and Denies headache(s) (used to occur on and off over the occipital area but none lately) ENT Denies dysphagia, Denies dizziness, Denies otalgia, Denies headache(s) (used to occur on and off over the occipital area but none lately), Reports neck pain, Denies odynophagia and Denies sore throat Card Denies chest pain, Denies palpitations and Denies dyspnea Resp Denies cough and Denies dyspnea GI Denies abdominal pain, Denies constipation, Denies dysphagia, Denies diarrhea, Denies nausea, Denies odynophagia and Denies vomiting Denies dysuria, Denies nocturia and Denies urinary frequency Musc Reports neck pain Skin/Breast Denies rash Neuro Denies dizziness, Denies headache(s) (used to occur on and off over the occipital area but none lately) and Denies focal weakness Psych Denies anxiety, Reports depression (better controlled) and Denies suicidal ideation (at present) Endo Denies fatigue and Denies palpitations Physical exam (Primary Care) Vital Signs: Last Vital Signs Pulse 93 04/15/23 09:20 BP 130/78 04/15/23 09:20 Pulse Ox 95 04/15/23 09:20 Oxygen Delivery Method Room Air 04/15/23 09:20 BMI result Body Mass Index 35.7 Tobacco/Smoking Status: Tobacco use Status Tobacco use date assessed 04/15/23 04/15/23 09:26 Patient Tobacco Use Status Former Tobacco user 04/15/23 09:26 Tobacco use type Cigarette 04/15/23 09:26 e-Cigarette/Vaping Use Never Used 04/15/23 09:26 PHQ-9: PHQ-9 Score PHQ-9: Total score 0 04/15/23 09:28 Depression Screening Interpretation: Negative (is on multiple Rx and sees psychiatry for his depression) Thrive Assessment: Date of Thrive Assessment Date Thrive assessed 04/15/23 04/15/23 09:26 Currently or been in a relationship where the following occur: no concerns reported Const General: no acute distress and alert HENMT Head: Yes scalp tenderness (mild, over the right occipital area) Ears: TM's normal bilaterally and EAC's normal Throat: Yes posterior oropharynx normal and Yes tonsils normal (no TP congestion noted) Neck Neck: Yes no lymphadenopathy and Yes supple Resp Auscultation: clear to auscultation bilaterally, no rales and no wheezes Cardio Rate: regular rate Rhythm: regular rhythm Heart sounds: no murmurs GI Palpation (GI): Soft to palpation and nontender Auscultation: normal bowel sounds Extrem General: Yes no clubbing, cyanosis or edema Results Reviewed Results Reviewed: Laboratory Tests 04/11/23 04/11/23 08:12 10:31 WBC 6.2 Hgb 15.3 Hct 46.1 Plt Count 274 D Sodium 143 Potassium 4.3 Creatinine 0.89 Estimated GFR > 60 Fasting Glucose 96 Hemoglobin A1c % 5.8 Calcium 9.8 D AST 28 ALT 38 Triglycerides 215 H Cholesterol 157 LDL Cholesterol, Calc 64 HDL Cholesterol 50 25-OH Vitamin D Total 19.4 L TSH 1.25 Urine pH 5.0 Ur Specific [place] 1.020 Urine Protein Negative Urine Glucose (UA) Negative Urine Blood Negative Microalb/Creat Ratio 24.6 Assessment and Plan Assessment & Plan (1) Recurrent occipital headache: Code(s): R51.9 - Headache, unspecified Plan: States that his headaches have been much better controlled lately Repeat head CT done in November 2022 came out negative Continue Nortriptyline 50 mg Q HS Follow up with [facility] (Dr. 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 in the setting of polycystic kidney disease His previous left-sided hemiparesis has resolved but he still has residual right-sided headaches, which have been well-controlled with Nortriptyline Follow up with neurology as scheduled (3) Hypertension: Code(s): I10 - Essential (primary) hypertension Qualifiers: Hypertension type: primary hypertension Qualified Code(s): I10 - Essential (primary) hypertension Plan: Reinforced low sodium diet - goal is systolic BP of at least 120 mm or less Continue Lisinopril 7.5 mg (5 mg x 1.5 tablets) QD Follow up with nephrology as scheduled (4) Diabetes mellitus: Code(s): E11.9 - Type 2 diabetes mellitus without complications Qualifiers: Diabetes mellitus type: type 2 Diabetes mellitus penitentiary insulin use: without penitentiary use Diabetes mellitus complication status: with hyperglycemia Qualified Code(s): E11.65 - Type 2 diabetes mellitus with hyperglycemia Plan: HgbA1c was at 5.8% on his labs done a few days ago (was at 5.4% previously) - goal is <6.5% Reinforced diabetic diet Continue Metformin 1000 mg BID (5) Mixed hyperlipidemia: Code(s): E78.2 - Mixed hyperlipidemia Plan: Results of his labs done a few days ago reviewed and discussed with patient Reinforced low cholesterol diet Will recheck his labs and fasting lipids in 4 months (6) Polycystic kidney disease: Code(s): Q61.3 - Polycystic kidney, unspecified Plan: Follow up with nehphrology as scheduled Reportedly had a renal sonogram done at [facility] a few months ago, which we assume came back with no changes as patient states that he never received a call back regarding his results He has reportedly been advised that he will need a kidney transplant at some point in the future (7) GERD (gastroesophageal reflux disease): Code(s): K21.9 - Gastro-esophageal reflux disease without esophagitis Qualifiers: Esophagitis presence: without esophagitis Qualified Code(s): K21.9 - Gastro-esophageal reflux disease without esophagitis Plan: Dietary restrictions reinforced Continue Omeprazole 20 mg QD (8) Obstructive sleep apnea: Code(s): G47.33 - Obstructive sleep apnea (adult) (pediatric) Plan: Continue using his CPAP device daily when sleeping at night (9) Insomnia: Code(s): G47.00 - Insomnia, unspecified Qualifiers: Insomnia type: unspecified Qualified Code(s): G47.00 - Insomnia, unspecified Plan: Sleep hygiene reinforced Continue Zolpidem 10 mg QHS and Trazodone 50 mg QHS (10) Mood disorder: Code(s): F39 - Unspecified mood [affective] disorder Plan: S/P suicide attempt (tried to intentionally overdose on Trazodone 50 mg by ingestion several tablets at once followed by alcohol ingestion) most recently on 02/10/2023 - was treated with activated charcoal in the ER States that he is currently doing well and feels a lot better than he did a couple of months ago Continue Bupropion XL 300 mg QD, Fluoxetine 10 mg 3 caps (30 mg ) QD, Gabapentin 100 mg TID, Quetiapine 50 mg BID and Clonazepam 1 mg QD PRN Follow up with psychiatry as scheduled; he also continues to follow up with his therapist weekly (11) Obesity (BMI 30-39.9): Code(s): E66.9 - Obesity, unspecified Plan: Reinforced diet/exercise as tolerated/lose weight Follow-up with weight management as scheduled Plan Patient declined flu vaccine today To return in 4 months for his next annual physical examination Orders: Orders Lipid Panel 4 Months E78.00 - Pure hypercholesterolemia, unspecified, Z00.00 - Encounter for general adult medical examination without abnormal findings Hemoglobin A1c 4 Months E11.9 - Type 2 diabetes mellitus without complications Microalbumin, Random (w Creat) 4 Months E11.9 - Type 2 diabetes mellitus without complications UA CC w/rflx Micro + Cult 4 Months R30.0 - Dysuria Comprehensive Guion. Panel Fast 4 Months E78.00 - Pure hypercholesterolemia, unspecified, Z00.00 - Encounter for general adult medical examination without abnormal findings Complete Blood Count Auto Diff 4 Months I10 - Essential (primary) hypertension, Z00.00 - Encounter for general adult medical examination without abnormal findings TSH reflex Free T4 4 Months E78.00 - Pure hypercholesterolemia, unspecified Vitamin D 25-OH Total 4 Months E55.9 - Vitamin D deficiency, unspecified Review Flu Vaccine not done: patient reason (patient declined) Coding Level of Care Code Est Pt Level 4 (55701) Diagnoses Recurrent occipital headache R51.9 Subarachnoid hemorrhage I60.9 Primary hypertension I10 Hypertension type: primary hypertension Type 2 diabetes mellitus with hyperglycemia, without long-term current use of insulin E11.65 Diabetes mellitus type: type 2 Diabetes mellitus terminal gauger supervisor insulin use: without terminal gauger supervisor use Diabetes mellitus complication status: with hyperglycemia Mixed hyperlipidemia E78.2 Polycystic kidney disease Q61.3 Gastroesophageal reflux disease without esophagitis K21.9 Esophagitis presence: without esophagitis Obstructive sleep apnea G47.33 Insomnia, unspecified type G47.00 Insomnia type: unspecified Mood disorder F39 Obesity (BMI 30-39.9) E66.9
== END 2023-04-15 10:22 | disposition home or self-care (01) ==
PROVIDERS: PCP Internal Medicine; Visit Provider Internal Medicine
DX: E11.65 Type 2 diabetes mellitus with hyperglycemia (principal); I60.9 Nontraumatic subarachnoid hemorrhage, unspecified; F39 Unspecified mood [affective] disorder; R51.9 Headache, unspecified; I10 Essential (primary) hypertension; E78.2 Mixed hyperlipidemia; Q61.3 Polycystic kidney, unspecified; K21.9 Gastro-esophageal reflux disease without esophagitis; G47.33 Obstructive sleep apnea (adult) (pediatric); G47.00 Insomnia, unspecified; E66.9 Obesity, unspecified
CPT/HCPCS: 99214

== ENCOUNTER → 2023-06-02 08:44 | Outpatient (BNVA) | payer OTHER, SELFPAY | PROVIDERS: PCP Internal Medicine; Visit Provider Urology | DX: Q61.3 Polycystic kidney, unspecified (principal); R33.9 Retention of urine, unspecified | CPT/HCPCS: 81003; 99212 ==

== ENCOUNTER 2023-06-02 09:03 | Outpatient (AMB) | payer OTHER, SELFPAY ==
--- NOTE | 2023-06-02 09:13 | MHC.OFFVIS ---
Intake Intake Visit Reasons: 6m follow up Intake Note: Patient presents today for a follow-up Meds- None Allergies to Antibiotic- No Known Allergies Blood Thinner- Aspirin Patient Symptoms: Allergies No Known Allergies Allergy (Verified 06/02/23 09:18) HPI HPI Comments History of Present Illness Details Korey is a very pleasant male. Accompanied by his . He is seen for the following urologic condition - bilateral renal cyst Will have occasional bleed into cysts This may cause marked pain for temporary periods Continue follow-up with nephrology as required Bilateral renal cyst Previous evaluation for question of polycystic kidney disease Renal function 11/19 0.85 Prior ultrasound with bilateral cysts in kidneys Had been admitted 11/19 for subarachnoid hemorrhage Findings consistent with genetic cystic disease Six month follow-up [facility] Medical History Mood disorder Mixed hyperlipidemia Polycystic kidney disease Obesity (BMI 30-39.9) Epigastric abdominal pain Stroke Insomnia Morbid obesity with BMI of 40.0-44.9, adult Subarachnoid hemorrhage Umbilical hernia Pulmonary embolism Lyme disease Osteoarthritis Depression with anxiety Hiatal hernia Obstructive sleep apnea Morbid obesity GERD (gastroesophageal reflux disease) Diabetes mellitus Hypertension Surgical History Status post repair of ventral hernia H/O umbilical hernia repair S/P laparoscopic appendectomy History of back surgery Gastric bypass status for obesity Family History Mother History of diabetes mellitus Maternal Grandmother History of diabetes mellitus History of hypertension History of breast cancer Sister History of diabetes mellitus Social History Household Members: Spouse and Children Housing: Apartment Are you a primary hospice home care coordinator to a significant other at home: No Do you presently have visiting nurse or other home services: Yes Alcohol intake: current Alcohol intake frequency: holidays/special occasions only Alcohol type: beer Patient Tobacco Use Status: Former Tobacco user Tobacco use type: Cigarette Cigarettes Per Day: 5 e-Cigarette/Vaping Use: Never Used Second Hand Smoke Exposure: Yes service: No Current occupational status: disabled Cognitive needs: No Hearing needs: No Vision needs: No Review of Systems Const Denies chills and Denies fever(s) Card Reports no additional complaints and Denies syncope Resp Denies cough GI Denies abdominal pain and Denies heartburn Reports as per HPI and Denies change in libido Neuro Denies syncope Psych Denies change in libido Endo Denies change in libido Physical Exam Const General: cooperative, healthy appearing, comfortable and no acute distress Orientation/consciousness: patient oriented x3 HEENT Face and sinus: Yes normal facial exam Mouth: moist mucous membranes Neck Neck: Yes normal visual inspection, Yes full ROM and Yes trachea midline Chest Chest palpation & inspection: normal inspection of the chest Resp Effort & Inspection: normal respiratory effort, able to speak in complete sentences and no respiratory distress GI Inspection: Yes normal to inspection Back/Spine/Pelvis Cervical Spine: normal cervical lordosis Thoracic/Lumbar Spine: thoracic and lumbar spine normal to inspection Skin General skin exam: no rashes or lesions noted Neuro General: patient oriented x3, gait normal, tone normal and moves all extremities Extrem General: Yes normal to inspection and Yes capillary refill normal Results AMB Urinalysis, Automated UA Leukoctes 15 Adelina/uL Last Edit by Valentina Landa CMA on 06/02/23 09:21 UA Nitrite Negative Last Edit by Valentina Landa CMA on 06/02/23 09:21 UA Urobilinogen 0.2 mg/dL Last Edit by Valentina Landa CMA on 06/02/23 09:21 UA Protein 30 mg/dL Last Edit by Valentina Landa CMA on 06/02/23 09:21 UA pH 6.0 Last Edit by Valentina Landa CMA on 06/02/23 09:21 UA Blood 0 Christian/uL Last Edit by Valentina Landa CMA on 06/02/23 09:21 UA Specific [place] 1.030 Last Edit by Valentina Landa CMA on 06/02/23 09:21 UA Ketone Positive Last Edit by Valentina Landa CMA on 06/02/23 09:21 5mg/dl Valentina Landa 06/02/23 09:21 UA Bilirubin 2 mg/dL Last Edit by Valentina Landa CMA on 06/02/23 09:21 UA Glucose 0 mg/dL Last Edit by Valentina Landa CMA on 06/02/23 09:21 Results Reviewed Results Reviewed: Laboratory Last Values Urine pH (Auto) 6.0 06/02/23 09:19 Specific [place] (Auto) 1.030 06/02/23 09:19 Urine Protein (Auto) 30 mg/dL 06/02/23 09:19 Glucose (UA)(Auto) 0 mg/dL 06/02/23 09:19 Urine Ketones (Auto) Positive 06/02/23 09:19 Urine Blood (Auto) 0 Christian/uL 06/02/23 09:19 Urine Nitrite (Auto) Negative 06/02/23 09:19 Urine Bilirubin (Auto) 2 mg/dL 06/02/23 09:19 Urine Urobilinogen (Auto) 0.2 mg/dL 06/02/23 09:19 Leukocyte Esterase (Auto) 15 Adelina/uL 06/02/23 09:19 Assessment & Plan Assessment & Plan (1) Polycystic kidney disease: Code(s): Q61.3 - Polycystic kidney, unspecified Plan PRN Orders: Orders AMB Urinalysis Automated Today R33.9 - Retention of urine, unspecified Patient Instructions: Imaging studies, laboratory and physical exam results were discussed and reviewed in detail. No major barriers to patient understanding were identified. An opportunity to ask questions regarding the treatment plan was provided. All questions were answered. The patient expressed understanding and agreement with the above treatment plan. The patient is aware they should contact our office by phone for worsening of their current condition or the appearance of new urologic symptoms. Compliance is encouraged with any medications and followup testing that is ordered. It is a privilege to participate in the urologic care of your patient. If you have any questions or concerns regarding treatment for the above conditions, or other urologic issues, please do not hesitate to contact me. The office telephone contact is [phone]. This note is constructed using voice recognition software. While every effort has been made to ensure accuracy transcription coordinator errors may have been included. Yours sincerely, Dr Adam Davenport MD, [facility] - Urology Providers of Expert, Compassionate Care for the Genitourinary System Coding Level of Care Code Est Pt Level 3 (78777) Diagnoses Polycystic kidney disease Q61.3
== END 2023-06-02 09:43 | disposition home or self-care (01) ==
PROVIDERS: PCP Internal Medicine; Visit Provider Urology
DX: Q61.3 Polycystic kidney, unspecified (principal); R33.9 Retention of urine, unspecified
CPT/HCPCS: 99213

== ENCOUNTER 2023-10-11 10:33 | Outpatient (AMB) | payer OTHER, SELFPAY ==
--- NOTE | 2023-10-11 10:59 | A.OFFVIS_ITS ---
Intake Visit Reasons: painful intercourse and urination Intake Note: Patient is Present for Painful urination Urology Medication: None Antibiotic Allergies: None Blood Thinners: Aspirin Patient states that he has been having pain when urinating for over a month Allergies No Known Allergies Allergy (Verified 11/22/23 09:08) HPI Comments Details: Korey is a very pleasant male. Accompanied by his . He is seen for the following urologic condition - bilateral renal cyst - painful urination Painful urination Concentrated urine with very acidic pH Doxycycline 2 weeks His partner tells me that she is having pain after sexual intercourse with urination On exam he has irritation on the glans of his penis. When discussing his soap he tells me he uses Old [employer]ice Swagger. I suspect this is causing an allergic dermatitis and that she has an allergic vaginitis secondary to the old Spice Swagger. Bilateral renal cyst Previous evaluation for question of polycystic kidney disease Renal function 11/19 0.85 Prior ultrasound with bilateral cysts in kidneys Had been admitted 11/19 for subarachnoid hemorrhage Findings consistent with genetic cystic disease Six month follow-up [facility] Medical History (Updated 01/06/24 @ 17:42 by Lacey Olea CNP) Vitamin D deficiency Mood disorder Mixed hyperlipidemia Polycystic kidney disease Obesity (BMI 30-39.9) Epigastric abdominal pain Stroke Insomnia Morbid obesity with BMI of 40.0-44.9, adult Subarachnoid hemorrhage Umbilical hernia Pulmonary embolism Lyme disease Osteoarthritis Depression with anxiety Hiatal hernia Obstructive sleep apnea Morbid obesity GERD (gastroesophageal reflux disease) Diabetes mellitus Hypertension Surgical History Status post repair of ventral hernia H/O umbilical hernia repair S/P laparoscopic appendectomy History of back surgery Gastric bypass status for obesity Family History Mother History of diabetes mellitus Maternal Grandmother History of diabetes mellitus History of hypertension History of breast cancer Sister History of diabetes mellitus Social History Household Members: Spouse and Children Housing: Apartment Are you a primary acute care physical therapist to a significant other at home: No Do you presently have visiting nurse or other home services: Yes Alcohol intake: current Alcohol intake frequency: holidays/special occasions only Alcohol type: beer Patient Tobacco Use Status: Former Tobacco user Tobacco use type: Cigarette Cigarettes Per Day: 5 e-Cigarette/Vaping Use: Never Used Second Hand Smoke Exposure: Yes service: No Current occupational status: disabled Cognitive needs: No Hearing needs: No Vision needs: No Review of Systems Const Denies chills and Denies fever(s) Card Reports no additional complaints and Denies syncope Resp Denies cough GI Denies abdominal pain and Denies heartburn Reports as per HPI and Denies change in libido Neuro Denies syncope Psych Denies change in libido Endo Denies change in libido Physical Exam Const General: cooperative, healthy appearing, comfortable and no acute distress Orientation/consciousness: patient oriented x3 HEENT Face and sinus: Yes normal facial exam Mouth: moist mucous membranes Neck Neck: Yes normal visual inspection, Yes full ROM and Yes trachea midline Chest Chest palpation & inspection: normal inspection of the chest Resp Effort & Inspection: normal respiratory effort, able to speak in complete sentences and no respiratory distress GI Inspection: Yes normal to inspection Back/Spine/Pelvis Cervical Spine: normal cervical lordosis Thoracic/Lumbar Spine: thoracic and lumbar spine normal to inspection Skin General skin exam: no rashes or lesions noted Neuro General: patient oriented x3, gait normal, tone normal and moves all extremities Extrem General: Yes normal to inspection and Yes capillary refill normal Results AMB Urinalysis, Automated UA Leukoctes 0 Adelina/uL Last Edit by PELON Alejo on 10/11/23 11:19 UA Nitrite Negative Last Edit by PELON Alejo on 10/11/23 11:19 UA Urobilinogen 0.2 mg/dL Last Edit by PELON Alejo on 10/11/23 11:1 9 UA Protein 30 mg/dL Last Edit by PELON Alejo on 10/11/23 11:19 UA pH 5.0 Last Edit by PELON Alejo on 10/11/23 11:19 UA Blood 0 Christian/uL Last Edit by PELON Alejo on 10/11/23 11:19 UA Specific [place] 1.025 Last Edit by PELON Alejo on 10/11/23 11: 19 UA Ketone Positive Last Edit by PELON Alejo on 10/11/23 11:19 UA Bilirubin 1 mg/dL Last Edit by PELON Alejo on 10/11/23 11:19 UA Glucose 0 mg/dL Last Edit by PELON Alejo on 10/11/23 11:19 Results Reviewed Results Reviewed: Laboratory Last Values Urine pH (Auto) 5.0 10/11/23 11:07 Specific [place] (Auto) 1.025 10/11/23 11:07 Urine Protein (Auto) 30 mg/dL 10/11/23 11:07 Glucose (UA)(Auto) 0 mg/dL 10/11/23 11:07 Urine Ketones (Auto) Positive 10/11/23 11:07 Urine Blood (Auto) 0 Christian/uL 10/11/23 11:07 Urine Nitrite (Auto) Negative 10/11/23 11:07 Urine Bilirubin (Auto) 1 mg/dL 10/11/23 11:07 Urine Urobilinogen (Auto) 0.2 mg/dL 10/11/23 11:07 Leukocyte Esterase (Auto) 0 Adelina/uL 10/11/23 11:07 Assessment & Plan Assessment & Plan (1) Dysuria: Code(s): R30.0 - Dysuria Category: Medical Plan P.r.n. follow-up Orders: Orders AMB Urinalysis Automated 10/11/23 Z13.9 - Encounter for screening, unspecified Medications: New doxycycline hyclate 100 mg PO BID 28 tabs 0RF 14 days R30.0 - Dysuria, N39.0 - Urinary tract infection, site not specified, N45.1 - Epididymitis Patient Instructions: Imaging studies, laboratory and physical exam results were discussed and reviewed in detail. No major barriers to patient understanding were identified. An opportunity to ask questions regarding the treatment plan was provided. All questions were answered. The patient expressed understanding and agreement with the above treatment plan. The patient is aware they should contact our office by phone for worsening of their current condition or the appearance of new urologic symptoms. Compliance is encouraged with any medications and followup testing that is ordered. It is a privilege to participate in the urologic care of your patient. If you have any questions or concerns regarding treatment for the above conditions, or other urologic issues, please do not hesitate to contact me. The office telephone contact is [phone]. This note is constructed using voice recognition software. While every effort has been made to ensure accuracy facility maintenance technician errors may have been included. Yours sincerely, Dr Adam Davenport MD, [facility] - Urology Providers of Expert, Compassionate Care for the Genitourinary System Coding Level of Care Code Est Pt Level 4 (97721) Diagnoses Dysuria R30.0
== END 2023-10-11 12:14 | disposition home or self-care (01) ==
PROVIDERS: PCP Internal Medicine; Visit Provider Urology
DX: R30.0 Dysuria (principal)
CPT/HCPCS: 99214

== ENCOUNTER → 2023-10-11 10:33 | Outpatient (BNVA) | payer OTHER, SELFPAY | PROVIDERS: PCP Internal Medicine; Visit Provider Urology | DX: R30.9 Painful micturition, unspecified (principal); N28.1 Cyst of kidney, acquired; R30.0 Dysuria | CPT/HCPCS: 81003; 99212 ==

== ENCOUNTER 2023-11-15 11:09 | Outpatient (REF) | payer OTHER, SELFPAY ==
[2023-11-15 11:36] LABS: MANUAL DIFF FLAG NO
[2023-11-15 11:52] LABS: Basophils Percent Auto 0.6 % (0-2); Eosinophils Absolute Auto 0.1 X10*3/uL (0.0-0.4); Eosinophils Percent Auto 1.3 % (0-4); Hematocrit 46.4 % (42.0-52.0); Hemoglobin 15.8 g/dl (14.0-18.0); Imm Gran Abs Auto 0.01 X10*3/uL (0.00-0.03); Imm Gran Pct Auto 0.2 % (0.0-0.4); Lymphocytes Absolute Auto 1.1 X10*3/uL (1.2-4.9); Lymphocytes Percent Auto 23.4 % (20-40); Mean Corpuscular HGB Conc 34.1 g/dl (31.0-36.0); Mean Corpuscular Hemoglobin 30.3 pg (27.0-33.0); Mean Corpuscular Volume 89.1 fL (80.0-98.0); Mean Platelet Volume 9.7 fL (9.4-12.4); Monocytes Absolute Auto 0.4 X10*3/uL (0.1-1.2); Monocytes Percent Auto 7.7 % (2-11); Neutrophils Absolute Auto 3.1 x10*3/uL (2.0-8.3); Neutrophils Percent Auto 66.8 % (45-73); Platelet Count 194 X10*3/uL (160-400); Red Blood Count 5.21 X10*6/uL (4.60-5.80); White Blood Count 4.7 X10*3/uL (4.8-10.8)
[2023-11-15 12:14] LABS: Estimated Average Glucose 111 mg/dL; Hemoglobin A1c % 5.5 % (<6.0)
[2023-11-15 12:31] LABS: Alanine Aminotransferase 231 U/L (0-40); Albumin Level 4.1 g/dL (3.5-5.0); Alkaline Phosphatase 65 U/L (39-117); Anion Gap 16 (12-20); Aspartate Amino Transferase 273 U/L (5-37); Bilirubin Total 0.7 mg/dL (0.0-1.0); Blood Urea Nitrogen 9 mg/dL (9-16); Calcium 9.4 mg/dL (8.4-10.2); Carbon Dioxide 22 mmol/L (22-29); Chloride 109 mmol/L (96-108); Cholesterol 173 mg/dL (<200); Estimated Glomerular Filt Rate > 60; Glucose Fasting 106 mg/dL (60-99); Glucose Random 106 mg/dL (60-115); HDL Cholesterol 71 mg/dL (>40); LDL Cholesterol Calculated 84 mg/dL (<100); Sodium 143 mmol/L (135-145); Total Protein 7.6 g/dL (6.5-8.0); Triglycerides 90 mg/dL (<150)
[2023-11-15 12:49] LABS: TSH reflex Free T4 1.15 uIU/mL (0.32-4.0); Vitamin D 25-OH Total 28.4 ng/mL (>30)
[2023-11-15 14:05] LABS: Appearance Urine Clear; Color Urine Yellow; Glucose Urine UA Negative (Negative); Leukocyte Esterase Urine Negative (Negative); Nitrite Urine Negative (Negative); PH 5.5 (5.0-9.0); Specific Gravity - Urine >= 1.030 (1.005-1.025); UMIC TRIGGER UACC YES; Urine Blood Negative (Negative); Urine Ketones Trace mg/dL (Negative); Urine Protein 30 (1+) mg/dL (Neg-Trace)
[2023-11-15 14:21] LABS: Bacteria Urine None Seen (None Seen); Granular Casts Urine Present; RBC Urine 0-2 /HPF (0-2); Squamous Epithelial Cell Urine 0-2 /HPF (0-2); WBC Urine 0-5 /HPF (0-5)
[2023-11-15 14:45] LABS: Creatinine Urine 244.86 mg/dL
== END 2023-11-15 11:10 | disposition home or self-care (01) ==
LOC: HO.LAB 11:09
PROVIDERS: PCP Internal Medicine; Visit Provider Internal Medicine
DX: Z00.00 Encounter for general adult medical examination without abnormal findings (principal); E11.9 Type 2 diabetes mellitus without complications; E78.00 Pure hypercholesterolemia, unspecified; R19.7 Diarrhea, unspecified; R15.9 Full incontinence of feces; E55.9 Vitamin D deficiency, unspecified; I10 Essential (primary) hypertension; I82.409 Acute embolism and thrombosis of unspecified deep veins of unspecified lower extremity; R30.0 Dysuria
CPT/HCPCS: 36415; 80053; 80061; 81001; 81003; 82043; 82306; 82570; 83036; 84443; 85025

== ENCOUNTER 2023-11-22 08:36 | Outpatient (AMB) | payer OTHER, SELFPAY ==
--- NOTE | 2023-11-22 08:38 | A.OFFPC_ITS ---
Vital Signs 11/22/23 08:39 Height 5 ft 9 in Weight 232 lb 0.2 oz BMI 34.3 BP 136/90 H Blood Pressure Location Lt brachial Position Sitting Pulse 96 Pulse Source Pulse Oximeter Pulse Oximetry (%) 97 Oxygen Delivery Method Room Air Intake Visit Reasons: Annual exam- NEEDS A1C Intake Note: Patient is here today for a physical. A1C done 11/15/2023 Machine Packager Required: No Allergies No Known Allergies Allergy (Verified 11/22/23 09:08) Medication List - Last Reconciled 11/22/23 by Edward Lockwood MD acarbose 25 mg PO DAILY acetaminophen 650 mg PO Q4H PRN aspirin 81 mg PO DAILY blood pressure monitor As directed [BLOOD PRESSURE MONITOR As directed] blood sugar diagnostic (FreeStyle Lite Strips) As directed once a day blood sugar diagnostic As directed blood-glucose meter (FreeStyle Lite Meter kit) As directed blood-glucose meter As directed [BOTABAY HANDICAP GRAB BARS As directed] bupropion HCl XL 300 mg PO QAM 90 days cholecalciferol (vitamin D3) 25 mcg PO DAILY clonazepam 1 mg PO DAILY PRN 30 days cyanocobalamin (vitamin B-12) 100 mcg PO DAILY cyclobenzaprine 5 mg PO TID PRN diphenhydramine HCl 25 - 50 mg (1 - 2 x 25 mg) PO QID PRN docusate sodium (Colace) 100 mg PO BID famotidine 20 mg PO BID flash glucose sensor (FreeStyle Della 2 Sensor kit) As directed fluoxetine 30 mg (3 x 10 mg) PO DAILY 90 days gabapentin 100 mg PO TID lancets (FreeStyle Lancets) As directed once a day lancets As directed lisinopril 7.5 mg (1.5 x 5 mg) PO DAILY 90 days loratadine 10 mg PO DAILY magnesium oxide 400 mg PO DAILY meloxicam 7.5 mg PO DAILY multivitamin 1 tab PO DAILY nortriptyline 50 mg PO DAILY omeprazole 40 mg PO DAILY ondansetron HCl (Zofran) 4 mg PO Q8H PRN quetiapine 50 mg PO BID [Raised Toilet Seat with Adjustable padded arms - measured at 18.5 - 21.5 As directed] [SHOWER GRAB BARS As directed] sucralfate (Carafate) 1 g PO QIDACHS 15 days ursodiol 600 mg PO DAILY varenicline 1 mg PO BID 28 days zolpidem (Ambien) 10 mg PO BEDTIME PRN 30 days Tobacco use date assessed: 11/22/23 Dental Screening Dental Screen Date: 11/22/23 Did you have a dental visit in the last 12 months?: Yes Did you have a dental problem in the last 6 months where you did not have access to dental care?: No Was dental information given to patient?: Patient has dentist HPI Annual exam- NEEDS A1C HPI Details Patient comes in today for his annual physical examination States that he feels okay He denies any headaches or dizziness Denies any chest pains, no SOB No nausea/vomiting, no abdominal pain No change in bowel habits noted Denies any acute urinary symptoms He had his follow up labs done last week - to discuss his results FOR[facility]LY [facility] Medical History (Updated 11/22/23 @ 09:24 by Edward Lockwood MD) Vitamin D deficiency Mood disorder Mixed hyperlipidemia Polycystic kidney disease Obesity (BMI 30-39.9) Epigastric abdominal pain Stroke Insomnia Morbid obesity with BMI of 40.0-44.9, adult Subarachnoid hemorrhage Umbilical hernia Pulmonary embolism Lyme disease Osteoarthritis Depression with anxiety Hiatal hernia Obstructive sleep apnea Morbid obesity GERD (gastroesophageal reflux disease) Diabetes mellitus Hypertension Surgical History Status post repair of ventral hernia H/O umbilical hernia repair S/P laparoscopic appendectomy History of back surgery Gastric bypass status for obesity Family History Mother History of diabetes mellitus Maternal Grandmother History of diabetes mellitus History of hypertension History of breast cancer Sister History of diabetes mellitus Social History Household Members: Spouse and Children Housing: Apartment Are you a primary med care manager to a significant other at home: No Do you presently have visiting nurse or other home services: Yes Alcohol intake: current Alcohol intake frequency: holidays/special occasions only Alcohol type: beer Patient Tobacco Use Status: Former Tobacco user Tobacco use type: Cigarette Cigarettes Per Day: 5 e-Cigarette/Vaping Use: Never Used Second Hand Smoke Exposure: Yes service: No Current occupational status: disabled Cognitive needs: No Hearing needs: No Vision needs: No Questionnaire PHQ-9 Over the last 2 weeks, how often have you been bothered by any of the following problems? 1. Little interest or pleasure in doing things: not at all 2. Feeling down, depressed, or hopeless: more than half the days 3. Trouble falling or staying asleep, or sleeping too much: not at all 4. Feeling tired or having little energy: not at all 5. Poor appetite or overeating: not at all 6. Feeling bad about yourself - or that you are a failure or have let yourself o r your family down: not at all 7. Trouble concentrating on things, such as reading the newspaper or watching television: not at all 8. Moving or speaking so slowly that other people could have noticed. Or the opposite - being so fidgety or restless that you have been moving around a lot more than usual: not at all 9. Thoughts that you would be better off or of hurting yourself in some way: not at all Total score: 2 Depression Screening Interpretation: Positive Depression Screening Follow-up: Existing condition and In treatment Depression Screening Done: Yes 92988 - PHQ-9 Billing: Yes Source: Developed by Drs. Bartolo Edwards, Gina Cowan, Theo Costello and colleagues, with an educational karma from [employer]. Thrive Questionnaire Date Thrive assessed: 11/22/23 I am a: Patient What is your living situation today?: I have a steady place to live Within the past 12 months, did the food you bought not last and you didn't have the money to get more?: Never true Within the past 12 months, did you worry whether your food would run out before you got money to buy more?: Never true Do you have trouble paying for medicines?: No Do you have trouble getting transportation to medical appointments?: No Do you have trouble paying your heating and electricity bill?: No Do you have trouble taking care of your child, family member or friend?: No Do you have trouble with day-to-day activities such as bathing, preparing meals, shopping, managing finances, etc.?: No Are you currently unemployed and looking for a job?: No Are you interested in more education?: No Please select the resources that you would like help with: None Currently or been in a relationship where the following occur: No concerns reported THRIVE Score: 0 AUDIT C Alcohol Use Questionnaire (AUDIT-C) 1. How often do you have a drink containing alcohol?: Monthly or less 2. How many drinks containing alcohol do you have on a typical day when you are drinking?: 1 or 2 3. How often do you have six or more drinks on one occasion?: Never Total Score: 1 Score Reviewed/Action Taken: Yes PAOLA-7 AMB Questionnaire PAOLA-7 Date PAOLA - 7 assessed: 11/22/23 (patient states he is being seen for dep/anx) Feeling nervous, anxious, or on edge: 0 = Not at all Not being able to stop or control worryin = Several days Worrying too much about different things: 0 = Not at all Trouble relaxin = Not at all Being so restless that it is hard to sit still: 0 = Not at all Becoming easily annoyed or irritable: 0 = Not at all Feeling afraid as if something awful might happen: 0 = Not at all Total PAOLA-7 score (0-4 normal; 5-9 mild; 10-14 moderate; 15-21 severe): 1 Source: Developed by Drs. Bartloo Edwards, Gina Cowan, Theo Costello and colleagues, with an educational karma from [employer]. PAOLA-7 Assessment Billing PAOLA-7 Assessment Tool: PAOLA-7 Assessment 34193 Review of Systems Const Denies chills, Denies fatigue, Denies fever(s), Denies headache(s), Denies malaise and Denies weakness Eyes Denies blurry vision, Denies change in vision, Denies irritation and Denies itchy eyes ENT Denies dysphagia, Denies dizziness, Denies otalgia, Denies headache(s), Denies nasal congestion, Denies neck pain, Denies odynophagia and Denies sore throat Card Denies chest pain, Denies rapid heart rate, Denies irregular heart rhythm, Denies palpitations and Denies dyspnea Resp Denies chest congestion, Denies cough, Denies dyspnea and Denies wheezing GI Denies abdominal pain, Denies bloating, Denies constipation, Denies dysphagia, Denies heartburn, Denies diarrhea, Denies nausea, Denies odynophagia and Denies vomiting Denies hematuria, Denies difficulty urinating, Denies dysuria, Denies urinary frequency and Denies urinary urgency Musc Denies back pain, Denies arthralgias, Denies joint swelling, Denies muscle weakness and Denies neck pain Skin/Breast Denies change in pigmentation, Denies lesions, Denies rash and Denies unusual bruising Neuro Denies dizziness, Denies headache(s), Denies paresthesias and Denies weakness Endo Denies fatigue and Denies palpitations Aller/Immun Denies itchy eyes and Denies wheezing Physical exam (Primary Care) Vital Signs: Last Vital Signs Pulse 96 11/22/23 08:39 BP 136/90 H 11/22/23 08:39 Pulse Ox 97 11/22/23 08:39 Oxygen Delivery Method Room Air 11/22/23 08:39 BMI result Body Mass Index 34.3 Tobacco/Smoking Status: Tobacco use Status Tobacco use date assessed 11/22/23 11/22/23 08:40 Patient Tobacco Use Status Former Tobacco user 11/22/23 08:40 Tobacco use type Cigarette 11/22/23 08:40 e-Cigarette/Vaping Use Never Used 11/22/23 08:40 PHQ-9: PHQ-9 Score PHQ-9: Total score 2 11/22/23 08:49 Depression Screening Interpretation: Positive Depression Screening Follow-up: Existing condition and In treatment Thrive Assessment: Date of Thrive Assessment Date Thrive assessed 11/22/23 11/22/23 08:40 Currently or been in a relationship where the following occur: No concerns reported Const General: no acute distress, alert and awake Orientation/consciousness: patient oriented x3 HENMT Head: Yes normocephalic and Yes atraumatic Ears: external ears normal, TM's normal bilaterally and EAC's normal General nose exam: No nasal discharge present Face and sinus: Yes normal facial exam and Yes sinuses nontender Teeth and gingiva: dentition normal Throat: Yes posterior oropharynx normal and Yes tonsils normal (no TP congestion) Eyes Eyelids: Yes eyelids normal Conjunctivae: conjunctivae normal Pupils: Equal, round and reactive pupils present EOM: EOMs intact bilaterally Neck Neck: Yes no lymphadenopathy and Yes supple Thyroid: Thyroid normal Resp Auscultation: clear to auscultation bilaterally, no rales and no wheezes Cardio Rate: regular rate Rhythm: regular rhythm Heart sounds: no murmurs GI Palpation (GI): Soft to palpation, nontender and No hepatosplenomegaly present Auscultation: normal bowel sounds General: Yes no CVA tenderness Back/Spine/Pelvis Back: no CVA tenderness Thoracic/Lumbar Spine: thoracic and lumbar spine normal to inspection Skin Lesions: no lesions Rashes: no rashes Neuro General: patient oriented x3, moves all extremities, no focal motor deficits and CN's II-XI intact bilaterally Cranial nerves: Yes Equal, round and reactive pupils present Cognition (Neuro): normal cognition Gait exam (Neuro): Normal gait present Extrem General: Yes no clubbing, cyanosis or edema Results Reviewed Results Reviewed: Laboratory Tests 11/15/23 11/15/23 11/15/23 11:34 11:35 Unknown WBC 4.7 L Hgb 15.8 Hct 46.4 Plt Count 194 Sodium 143 Potassium 4.0 Creatinine 0.85 Estimated GFR > 60 Fasting Glucose 106 H Hemoglobin A1c % 5.5 AST 273 H ALT 231 H Triglycerides 90 Cholesterol 173 LDL Cholesterol, Calc 84 HDL Cholesterol 71 25-OH Vitamin D Total 28.4 L TSH 1.15 Ur Specific Davis >= 1.030 H Urine Protein 30 (1+) H Urine Glucose (UA) Negative Urine Blood Negative Urine Nitrite Negative Ur Leukocyte Esterase Negative Microalb/Creat Ratio 51.0 H Assessment and Plan Assessment & Plan (1) Annual physical exam: Code(s): Z00.00 - Encounter for general adult medical examination without abnormal findings Plan: Results of his labs done last week reviewed and discussed with patient (2) Recurrent occipital headache: Code(s): R51.9 - Headache, unspecified Plan: States that his headaches have been much better controlled lately Repeat head CT done in November 2022 came out negative Continue Nortriptyline 50 mg Q HS Follow up with [facility] (Dr. 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 in the setting of polycystic kidney disease His previous left-sided hemiparesis has completely resolved but he still has residual right-sided headaches, which have mostly been well-controlled with Nortriptyline Follow up with neurology as scheduled (4) Hypertension: Code(s): I10 - Essential (primary) hypertension Qualifiers: Hypertension type: primary hypertension Qualified Code(s): I10 - Essential (primary) hypertension Plan: Reinforced low sodium diet - goal is systolic BP of at least 120 mm or less Continue Lisinopril 7.5 mg (5 mg x 1.5 tablets) QD Follow up with nephrology as scheduled (5) Diabetes mellitus: Code(s): E11.9 - Type 2 diabetes mellitus without complications Qualifiers: Diabetes mellitus type: type 2 Diabetes mellitus assistant terminal manager insulin use: without assistant terminal manager use Diabetes mellitus complication status: with hyperglycemia Qualified Code(s): E11.65 - Type 2 diabetes mellitus with hyperglycemia Plan: HgbA1c was at 5.5% on his labs done last week (was previously at 5.8% a few months ago) - goal is <6.5% Reinforced diabetic diet Continue Metformin 1000 mg BID (6) Mixed hyperlipidemia: Code(s): E78.2 - Mixed hyperlipidemia Plan: His cholesterol levels are well-controlled on his recent labs Reinforced low cholesterol diet (7) Polycystic kidney disease: Code(s): Q61.3 - Polycystic kidney, unspecified Plan: Follow up with nehphrology as scheduled Reportedly had a renal sonogram done at [facility] last year, which we assume came back with no changes as patient states that he never received a call back regarding his results He has reportedly been advised that he will need a kidney transplant at some point in the future (8) Elevated LFTs: Code(s): R79.89 - Other specified abnormal findings of blood chemistry Plan: Advised that his LFTs have increased again significantly from previous on his recent labs, likely due to his weight (hepatosteatosis) He is again instructed to STOP taking Acetaminophen completely at this time due to his significantly elevated LFTs Will send patient again for repeat abdominal US for further evaluation Will recheck his LFTs in a few months for follow up (9) GERD (gastroesophageal reflux disease): Code(s): K21.9 - Gastro-esophageal reflux disease without esophagitis Qualifiers: Esophagitis presence: without esophagitis Qualified Code(s): K21.9 - Gastro-esophageal reflux disease without esophagitis Plan: Dietary restrictions reinforced Continue Omeprazole 20 mg QD (10) Vitamin D deficiency: Code(s): E55.9 - Vitamin D deficiency, unspecified Plan: Improving - continue Vitamin D3 1000 units QD (11) Obstructive sleep apnea: Code(s): G47.33 - Obstructive sleep apnea (adult) (pediatric) Plan: Continue using his CPAP device daily when sleeping at night (12) Insomnia: Code(s): G47.00 - Insomnia, unspecified Qualifiers: Insomnia type: unspecified Qualified Code(s): G47.00 - Insomnia, unspecified Plan: Sleep hygiene reinforced Continue Zolpidem 10 mg QHS and Trazodone 50 mg QHS (13) Mood disorder: Code(s): F39 - Unspecified mood [affective] disorder Plan: S/P suicide attempt (tried to intentionally overdose on Trazodone 50 mg by ingestion several tablets at once followed by alcohol ingestion) most recently on 02/10/2023 - was treated with activated charcoal in the ER States that he is currently doing well and feels a lot better than he did before Continue Bupropion XL 300 mg QD, Fluoxetine 10 mg 3 caps (30 mg ) QD, Gabapentin 100 mg TID, Quetiapine 50 mg BID and Clonazepam 1 mg QD PRN Follow up with psychiatry as scheduled; he continues to follow up with his therapist weekly as well (14) Obesity (BMI 30-39.9): Code(s): E66.9 - Obesity, unspecified Plan: Reinforced diet/exercise as tolerated/lose weight Follow-up with weight management as scheduled Plan Follow up in 4 months Orders: Orders US abdomen complete Today R79.89 - Other specified abnormal findings of blood chemistry Lipid Panel 4 Months E78.00 - Pure hypercholesterolemia, unspecified Vitamin D 25-OH Total 4 Months E55.9 - Vitamin D deficiency, unspecified Microalbumin, Random (w Creat) 4 Months E11.9 - Type 2 diabetes mellitus without complications UA CC w/rflx Micro + Cult 4 Months R30.0 - Dysuria Liver Fibrosis Pnl 4 Months R79.89 - Other specified abnormal findings of blood chemistry Complete Blood Count Auto Diff 4 Months D64.9 - Anemia, unspecified Comprehensive [place]. Panel Fast 4 Months E78.00 - Pure hypercholesterolemia, unspecified Hemoglobin A1c 4 Months E11.9 - Type 2 diabetes mellitus without complications Coding Level of Care Code Est Pt Prev Care 40-64y(13012) Diagnoses Annual physical exam Z00.00 Recurrent occipital headache R51.9 Subarachnoid hemorrhage I60.9 Primary hypertension I10 Hypertension type: primary hypertension Type 2 diabetes mellitus with hyperglycemia, without long-term current use of insulin E11.65 Diabetes mellitus type: type 2 Diabetes mellitus assistant terminal manager insulin use: without longterm use Diabetes mellitus complication status: with hyperglycemia Mixed hyperlipidemia E78.2 Polycystic kidney disease Q61.3 Elevated LFTs R79.89 Gastroesophageal reflux disease without esophagitis K21.9 Esophagitis presence: without esophagitis Vitamin D deficiency E55.9 Obstructive sleep apnea G47.33 Insomnia, unspecified type G47.00 Insomnia type: unspecified Mood disorder F39 Obesity (BMI 30-39.9) E66.9 Additional Codes PAOLA-7 Assessment Billing - PAOLA-7 Assessment Tool: PAOLA-7 Assessment [id number] ([id number])
[2023-11-22 08:39] VITALS: BP 136/90; PULSE 96; O2SAT 97; BMI 34.3
== END 2023-11-22 09:29 | disposition home or self-care (01) ==
PROVIDERS: PCP Internal Medicine; Visit Provider Internal Medicine
DX: Z00.00 Encounter for general adult medical examination without abnormal findings (principal); I60.9 Nontraumatic subarachnoid hemorrhage, unspecified; E11.65 Type 2 diabetes mellitus with hyperglycemia; F39 Unspecified mood [affective] disorder; Z68.34 Body mass index [BMI] 34.0-34.9, adult; R51.9 Headache, unspecified; I10 Essential (primary) hypertension; E78.2 Mixed hyperlipidemia; Q61.3 Polycystic kidney, unspecified; R79.89 Other specified abnormal findings of blood chemistry; K21.9 Gastro-esophageal reflux disease without esophagitis; E55.9 Vitamin D deficiency, unspecified
CPT/HCPCS: 99396

== ENCOUNTER 2023-12-09 08:08 | Outpatient (REF) | payer OTHER, SELFPAY ==
--- NOTE | ~2023-12-09 | US_ITS ---
EXAMINATION: US ABDOMEN COMPLETE CLINICAL INFORMATION: Other specified abnormal findings of blood chemistry. COMPARISON: Ultrasound renal November 03, 2022. Ultrasound abdomen December 05, 2020. CT abdomen August 05, 2017. TECHNIQUE: Real-time imaging of the abdominal viscera. FINDINGS: PANCREAS: Pancreas is obscured by overlying bowel gas. ABDOMINAL AORTA: The midportion of the aorta is not well visualized, the proximal and distal portions are unremarkable. INFERIOR VENA CAVA: Visualized portions are normal. LIVER: Liver is mildly enlarged measuring 18.7 cm with increased echogenicity suggesting hepatic steatosis. The liver contour is normal. No focal hepatic lesion. There is no intrahepatic biliary duct dilatation seen. GALLBLADDER: Gallbladder is distended measuring 13.9 cm without evidence of stones, sludge, polyps, wall thickening or pericholecystic fluid. Sonographic Butcher sign is negative. COMMON BILE DUCT: Normal in caliber measuring 0.4 cm in diameter. RIGHT KIDNEY: Redemonstrated sequela of polycystic kidney disease with innumerable simple appearing cysts, simple-appearing, not requiring follow-up. Right renal interpolar calculus measuring 6 mm. No hydronephrosis The kidney measures 15.1 cm in maximum dimension. LEFT KIDNEY: Demonstrates sequela of polycystic kidney disease with normal simple appearing cysts, simple-appearing, not requiring follow-up. Left renal calculi the largest measuring up to 7 mm in the interpolar region. No hydronephrosis. The kidney measures 13.6 cm in maximum dimension. SPLEEN: Normal. The spleen measures 9.1 cm in maximum dimension. FREE FLUID: None. US/US abdomen complete IMPRESSION: 1. Liver is mildly enlarged measuring 18.7 cm with increased echogenicity suggesting hepatic steatosis. 2. Gallbladder is distended measuring 13.9 cm without sonographic evidence of acute cholecystitis. 3. Redemonstrated sequela of polycystic kidney disease with innumerable simple appearing cysts, not requiring follow-up. 4. Bilateral renal calculi the largest measuring up to 7 mm in the interpolar region without hydronephrosis. Electronically signed by: Tavo Holcomb MD 12/31/2023 10:56 AM EDT
== END 2023-12-09 08:09 | disposition home or self-care (01) ==
LOC: HO.US 08:08
PROVIDERS: PCP Internal Medicine; Visit Provider Internal Medicine
DX: R79.89 Other specified abnormal findings of blood chemistry (principal)
CPT/HCPCS: 76700

== ENCOUNTER 2023-12-30 08:52 | Outpatient (AMB) | payer OTHER, SELFPAY ==
--- NOTE | 2023-12-30 09:28 | A.OFFVISCC_ITS ---
Vital Signs 12/30/23 09:32 BP 148/100 H Blood Pressure Location Rt brachial Position Sitting Respiration 16 Pulse 80 Pulse Source Pulse Oximeter Pulse Oximetry (%) 99 Oxygen Delivery Method Room Air Intake Visit Reasons: Intake Allergies No Known Allergies Allergy (Verified 11/22/23 09:08) HPI HPI Intake: Details: Patient presents for intake and evaluation of alcohol use present during interview drinking 24 beers decreased to 19 beers over the last 2 days no history of treatment. no other substance use Does report tremors if he does not drink daily worsening depression reports he started drinking to manage headaches medical history and medication list reviewed--patient has not been taking any of his medications Patient reporting he wishes to detox at home, requesting this policy writer collaborate with his neurologist to determine medication regimen for this History therapist weekly at home psychiatrist one admission secondary to suicide attempt COUNT INCLUDES [facility] Medical History (Updated 01/06/24 @ 17:42 by Lacey Olea CNP) Vitamin D deficiency Mood disorder Mixed hyperlipidemia Polycystic kidney disease Obesity (BMI 30-39.9) Epigastric abdominal pain Stroke Insomnia Morbid obesity with BMI of 40.0-44.9, adult Subarachnoid hemorrhage Umbilical hernia Pulmonary embolism Lyme disease Osteoarthritis Depression with anxiety Hiatal hernia Obstructive sleep apnea Morbid obesity GERD (gastroesophageal reflux disease) Diabetes mellitus Hypertension Surgical History Status post repair of ventral hernia H/O umbilical hernia repair S/P laparoscopic appendectomy History of back surgery Gastric bypass status for obesity Family History Mother History of diabetes mellitus Maternal Grandmother History of diabetes mellitus History of hypertension History of breast cancer Sister History of diabetes mellitus Social History Household Members: Spouse and Children Housing: Apartment Are you a primary daycare director to a significant other at home: No Do you presently have visiting nurse or other home services: Yes Alcohol intake: current Alcohol intake frequency: holidays/special occasions only Alcohol type: beer Patient Tobacco Use Status: Former Tobacco user Tobacco use type: Cigarette Cigarettes Per Day: 5 e-Cigarette/Vaping Use: Never Used Second Hand Smoke Exposure: Yes service: No Current occupational status: disabled Cognitive needs: No Hearing needs: No Vision needs: No Review of Systems Const Reports as per HPI, Reports difficulty sleeping, Reports lethargy, Reports malaise and Reports poor appetite GI Denies fecal incontinence, Denies diarrhea, Denies nausea and Denies vomiting Physical Exam Vital Signs: Last Vital Signs Pulse 80 12/30/23 09:32 Resp 16 12/30/23 09:32 BP 148/100 H 12/30/23 09:32 Pulse Ox 99 12/30/23 09:32 Oxygen Delivery Method Room Air 12/30/23 09:32 Const General: cooperative Nutritional Appearance: overweight Limitations: no limitations Psych Appearance: well kempt Affect: Blunted affect present Attitude: Guarded attititude/behavior present Thought process: Normal thought process present Insight: Fair insight present (Psych) Judgement: Fair judgement present (Psych) Results AMB 14 Panel Urine Drug Screen Urine Marijuana (THC) Negative Last Edit by Lis Zhu RN on 12/30/23 10:4 9 Urine Cocaine Negative Last Edit by Lis Zhu RN on 12/30/23 10:49 Urine Morphine Negative Last Edit by Lis Zhu RN on 12/30/23 10:49 Urine Methamphetamine Negative Last Edit by Lis Zhu RN on 12/30/23 10:4 9 Urine Amphetamine Negative Last Edit by Lis Zhu RN on 12/30/23 10:49 Urine Benzodiazepine Negative Last Edit by Lis Zhu RN on 12/30/23 10:49 Urine Barbiturates Negative Last Edit by Lis Zhu RN on 12/30/23 10:49 Urine Methadone Negative Last Edit by Lis Zhu RN on 12/30/23 10:49 Urine Buprenorphine Negative Last Edit by Lis Zhu RN on 12/30/23 10:49 Urine Tricyclic Antidepressant Negative Last Edit by Lis Zhu RN on 12/30/23 10:49 Urine MDMA Negative Last Edit by Lis Zhu RN on 12/30/23 10:49 Urine Oxycodone Negative Last Edit by Lis Zhu RN on 12/30/23 10:49 Urine Phencyclidine Negative Last Edit by Lis Zhu RN on 12/30/23 10:49 Urine Propoxyphene Negative Last Edit by Lis Zhu RN on 12/30/23 10:49 Results Reviewed Results Reviewed: Laboratory Last Values POC Urine Buprenorphine Negative 12/30/23 10:47 POC Urine Morphine Negative 12/30/23 10:47 POC Urine Oxycodone Negative 12/30/23 10:47 POC Urine Methadone Negative 12/30/23 10:47 POC Urine Propoxyphene Negative 12/30/23 10:47 POC Urine Barbiturates Negative 12/30/23 10:47 POC U Tricyclic Antidpr Negative 12/30/23 10:47 POC Urine PCP Negative 12/30/23 10:47 POC Ur Amphetamines Negative 12/30/23 10:47 POC Ur Methamphetamine Negative 12/30/23 10:47 POC Urine MDMA Negative 12/30/23 10:47 POC Ur Benzodiazepine Negative 12/30/23 10:47 POC Urine Cocaine Negative 12/30/23 10:47 POC Ur Marijuana (THC) Negative 12/30/23 10:47 Assessment & Plan Assessment & Plan (1) Alcohol use disorder, severe, dependence: Code(s): F10.20 - Alcohol dependence, uncomplicated Category: Medical Plan: * at home detox not recommended for this patient due to health history --stroke and subarrachnoid hemmorhage. Patient also quite hypertensive and not taking medications as prescribed * strongly reccomend medically supervised withdrawal which patient absolutely declines. * t/w unwilling to prescribe any medications due to risk. advised to call for ambulance if she noted change in mentation * discussed slowly tapering alcohol use as this is the method patient wishes to pursue. again voiced concerns with this, however also encouraged patient to restart medications due to ongoing risks * patient to follow up one week with RN Orders: Orders AMB 14 Panel Urine Drug Screen 12/30/23 F10.10 - Alcohol abuse, uncomplicated MAT Intake Nursing Intake Reason for visit: AUD-seeking MAT Are you currently using?: Yes What are you taking?: Beer When was your last use?: last night How much?: 19 beers What is your current relationship status?: Current PCP: [facility] Date of last visit: 10/2022 Referral Source: k Substance Abuse History Substance Abuse History (includes route, frequency and quantity): Alcohol (Beer) Age of first use: 19 Details: Pt was a social drinker up until 7 months ago. He was dx with a brain aneurysm 7 months ago and started to experience extreme H/A. at that time the medication he was receiving was not helping and he noticed that when he started drinking the pain went away. At that time his drinking began to escalate and he is now drinking 19-20 beers (Michelob) daily. Social History Domestic Violence concerns: None reported Children: 3 Do you have a support system?: yes -adult son and Current mode of transportation?: drives Where are you currently residing?: apartment LMP: N/A IV Drug Use Have you ever shared needles?: No Have you ever overdosed?: No Have you ever been hospitalized for an overdose?: No Was Naloxone administered?: Not applicable Recovery History Have you had any periods of recovery?: No What is your longest time in recovery?: N/A When was the last time you were in recovery?: N/a Have you ever had inpatient treatment for your substance abuse disorder?: No Have you been in an inpatient detoxification program?: No Have you been in an inpatient [place]hab/[place] house?: No Have you been in an outpatient Methadone Maintenance program?: No Have you been in an outpatient Suboxone Maintenance program?: No Have you been in an AA/NA support program?: No Have you had a Recovery Support Christmas Tree Grader?: No Have you had Peer Support?: No Behavioral Health History Do you have a current provider? If so, who?: yes-used to work at [employer] but not sure of company now. Has Psych and therapist diagnosis: per -anxiety, depression, mood disorder unspecified. History of other addictive behavior: Denies History of inpatient psychiatric hospitalization? If so, how many? Most Recent? Where?: yes. 1 year ago at [facility] for attempted suicide via ingesting pills. History of self harming thoughts?: Yes History of homicidal or suicidal intentions?: No Medical Conditions Endocarditis?: No Skin Infection: No Seizure related to withdrawal or overdose: No Head or brain injury: Yes (brain aneurysm dx 7 months ago following chronic headaches) Hepatitis A (if yes, have you been treated?): No Hepatitis B (if yes, have you been treated?): No Hepatitis C (if yes, have you been treated?): No HIV (if yes, have you been treated?): No TB (if yes, have you been treated?): No Other: Yes (Insomnia, stroke, Mixed hyperlipidemia, DM, HTN, GERD, [place], hiatal hernia-see 11/21 PCP note) Do you have any chronic pain conditions?: Chronic H/A from brain aneurysm Legal History History of incarceration: No Currently on parole or probation: No Court mandated programs: No Pending court cases: No DCF involvement: No
[2023-12-30 09:32] VITALS: BP 148/100; PULSE 80; RESP 16; O2SAT 99
== END 2023-12-30 10:03 | disposition home or self-care (01) ==
PROVIDERS: PCP Internal Medicine; Visit Provider Nurse Practitioner Psychiatric/Mental Health
DX: F10.20 Alcohol dependence, uncomplicated (principal)
CPT/HCPCS: 99204

== ENCOUNTER → 2023-12-30 08:52 | Outpatient (BNVA) | payer OTHER, SELFPAY | PROVIDERS: PCP Internal Medicine; Visit Provider Nurse Practitioner Psychiatric/Mental Health | DX: F10.20 Alcohol dependence, uncomplicated (principal) | CPT/HCPCS: 80305; 99202 ==

== ENCOUNTER → 2024-01-06 08:49 | Outpatient (BNVA) | payer OTHER, SELFPAY | PROVIDERS: PCP Internal Medicine ==

== ENCOUNTER 2024-01-13 10:05 | Outpatient (AMB) | payer OTHER, SELFPAY ==
--- NOTE | 2024-01-13 10:12 | MHC.AM.SUB ---
Vital Signs 01/13/24 10:32 BP 150/90 H Blood Pressure Location Lt brachial Position Sitting Pulse 87 Pulse Source Pulse Oximeter Intake Visit Reasons: MAT follow up Allergies No Known Allergies Allergy (Verified 11/22/23 09:08) HPI HPI MAT follow up: Details: Patient presents for follow up present during visit Reports he is down to 15 beers drinking more water reporting some tremor when he reduces his amount, but that subsides quickly anxiety better sleep improved Reports he has been taking his medications with regularity now Discussed BP-- reports she checks it at home as well and it been what it was in office today 150/90 She reports this is an improvement from where he previously was He denies headache, dizziness, nausea April 02 next PCP appt [facility] Medical History (Updated 01/06/24 @ 17:42 by Lacey Olea CNP) Vitamin D deficiency Mood disorder Mixed hyperlipidemia Polycystic kidney disease Obesity (BMI 30-39.9) Epigastric abdominal pain Stroke Insomnia Morbid obesity with BMI of 40.0-44.9, adult Subarachnoid hemorrhage Umbilical hernia Pulmonary embolism Lyme disease Osteoarthritis Depression with anxiety Hiatal hernia Obstructive sleep apnea Morbid obesity GERD (gastroesophageal reflux disease) Diabetes mellitus Hypertension Surgical History Status post repair of ventral hernia H/O umbilical hernia repair S/P laparoscopic appendectomy History of back surgery Gastric bypass status for obesity Family History Mother History of diabetes mellitus Maternal Grandmother History of diabetes mellitus History of hypertension History of breast cancer Sister History of diabetes mellitus Social History Household Members: Spouse and Children Housing: Apartment Are you a primary career placement services counselor to a significant other at home: No Do you presently have visiting nurse or other home services: Yes Alcohol intake: current Alcohol intake frequency: holidays/special occasions only Alcohol type: beer Patient Tobacco Use Status: Former Tobacco user Tobacco use type: Cigarette Cigarettes Per Day: 5 e-Cigarette/Vaping Use: Never Used Second Hand Smoke Exposure: Yes service: No Current occupational status: disabled Cognitive needs: No Hearing needs: No Vision needs: No Review of Systems Const Reports as per HPI and Reports no additional complaints Physical Exam Const General: cooperative, healthy appearing, no acute distress and well groomed Orientation/consciousness: patient oriented x3 Limitations: no limitations Neuro General: patient oriented x3 Assessment & Plan Assessment & Plan (1) Alcohol use disorder, severe, dependence: Code(s): F10.20 - Alcohol dependence, uncomplicated Category: Medical Plan: continue to taper as tolerated requesting lab work today follow up 2 weeks Orders: Orders Comprehensive Met. Panel Today F10.20 - Alcohol dependence, uncomplicated
[2024-01-13 10:32] VITALS: BP 150/90; PULSE 87
== END 2024-01-13 10:26 | disposition home or self-care (01) ==
PROVIDERS: PCP Internal Medicine; Visit Provider Nurse Practitioner Psychiatric/Mental Health
DX: F10.20 Alcohol dependence, uncomplicated (principal)
CPT/HCPCS: 99214

== ENCOUNTER 2024-01-13 10:05 | Outpatient (REF) | payer OTHER, SELFPAY ==
[2024-01-13 10:56] LABS: MANUAL DIFF FLAG NO
[2024-01-13 11:11] LABS: D Dimer High Sensitivity < 150 NG/ML
[2024-01-13 11:20] LABS: Basophils Percent Auto 0.6 % (0-2); Eosinophils Absolute Auto 0.1 X10*3/uL (0.0-0.4); Eosinophils Percent Auto 2.1 % (0-4); Hematocrit 42.4 % (42.0-52.0); Hemoglobin 14.5 g/dl (14.0-18.0); Imm Gran Abs Auto 0.02 X10*3/uL (0.00-0.03); Imm Gran Pct Auto 0.4 % (0.0-0.4); Lymphocytes Absolute Auto 1.3 X10*3/uL (1.2-4.9); Lymphocytes Percent Auto 25.2 % (20-40); Mean Corpuscular HGB Conc 34.2 g/dl (31.0-36.0); Mean Corpuscular Hemoglobin 31.1 pg (27.0-33.0); Mean Platelet Volume 9.6 fL (9.4-12.4); Monocytes Absolute Auto 0.5 X10*3/uL (0.1-1.2); Monocytes Percent Auto 9.8 % (2-11); Neutrophils Absolute Auto 3.2 x10*3/uL (2.0-8.3); Neutrophils Percent Auto 61.9 % (45-73); Platelet Count 171 X10*3/uL (160-400); Red Blood Count 4.66 X10*6/uL (4.60-5.80); Red Cell Distribution Width 12.6 % (11.0-16.0); White Blood Count 5.2 X10*3/uL (4.8-10.8)
[2024-01-13 11:25] LABS: Alanine Aminotransferase 205 U/L (0-40); Albumin Level 4.1 g/dL (3.5-5.0); Alkaline Phosphatase 58 U/L (39-117); Anion Gap 13 (12-20); Aspartate Amino Transferase 232 U/L (5-37); Bilirubin Total 0.7 mg/dL (0.0-1.0); Blood Urea Nitrogen 7 mg/dL (9-16); Calcium 9.9 mg/dL (8.4-10.2); Carbon Dioxide 26 mmol/L (22-29); Chloride 106 mmol/L (96-108); Estimated Glomerular Filt Rate > 60; Glucose Random 130 mg/dL (60-115); Potassium 4.3 mmol/L (3.3-5.1); Sodium 141 mmol/L (135-145); Total Protein 7.5 g/dL (6.5-8.0)
[2024-01-13 13:33] LABS: Leukocytes Stool Qualitative NEGATIVE (NEGATIVE)
== END 2024-01-13 10:06 | disposition home or self-care (01) ==
LOC: HO.LAB 10:05
PROVIDERS: Internal Medicine Hypertension Specialist; Internal Medicine Medical Oncology; PCP Internal Medicine; Visit Provider Nurse Practitioner Psychiatric/Mental Health
DX: F11.20 Opioid dependence, uncomplicated (principal); I82.409 Acute embolism and thrombosis of unspecified deep veins of unspecified lower extremity; R19.7 Diarrhea, unspecified; R15.9 Full incontinence of feces; I10 Essential (primary) hypertension; R30.0 Dysuria
CPT/HCPCS: 36415; 80053; 85025; 85379; 87177; 87209; 87329; 89055; 99212

== ENCOUNTER 2024-01-27 09:03 | Outpatient (AMB) | payer OTHER, SELFPAY ==
--- NOTE | 2024-01-27 09:20 | A.OFFVISCC_ITS ---
Intake Visit Reasons: MAT follow up Allergies No Known Allergies Allergy (Verified 11/22/23 09:08) HPI HPI MAT follow up: Details: Patient presents for follow up AUD --continues to decrease intake down too 12 beers daily (started at 26) decreasing by one beer every 4 days encouraged to continue decreasing PFSH Medical History (Updated 01/06/24 @ 17:42 by Lacey Olea CNP) Vitamin D deficiency Mood disorder Mixed hyperlipidemia Polycystic kidney disease Obesity (BMI 30-39.9) Epigastric abdominal pain Stroke Insomnia Morbid obesity with BMI of 40.0-44.9, adult Subarachnoid hemorrhage Umbilical hernia Pulmonary embolism Lyme disease Osteoarthritis Depression with anxiety Hiatal hernia Obstructive sleep apnea Morbid obesity GERD (gastroesophageal reflux disease) Diabetes mellitus Hypertension Surgical History Status post repair of ventral hernia H/O umbilical hernia repair S/P laparoscopic appendectomy History of back surgery Gastric bypass status for obesity Family History Mother History of diabetes mellitus Maternal Grandmother History of diabetes mellitus History of hypertension History of breast cancer Sister History of diabetes mellitus Social History Household Members: Spouse and Children Housing: Apartment Are you a primary respiratory care technician to a significant other at home: No Do you presently have visiting nurse or other home services: Yes Alcohol intake: current Alcohol intake frequency: holidays/special occasions only Alcohol type: beer Patient Tobacco Use Status: Former Tobacco user Tobacco use type: Cigarette Cigarettes Per Day: 5 e-Cigarette/Vaping Use: Never Used Second Hand Smoke Exposure: Yes service: No Current occupational status: disabled Cognitive needs: No Hearing needs: No Vision needs: No Review of Systems Const Reports as per HPI and Reports no additional complaints Physical Exam Const General: cooperative, healthy appearing, no acute distress and well groomed Assessment & Plan Assessment & Plan (1) Alcohol use disorder, severe, dependence: Code(s): F10.20 - Alcohol dependence, uncomplicated Category: Medical Plan: * risk reduction discussion * follow up 3 weeks
== END 2024-01-27 09:23 | disposition home or self-care (01) ==
PROVIDERS: PCP Internal Medicine; Visit Provider Nurse Practitioner Psychiatric/Mental Health
DX: F10.20 Alcohol dependence, uncomplicated (principal)
CPT/HCPCS: 99214

== ENCOUNTER → 2024-01-27 09:03 | Outpatient (BNVA) | payer OTHER, SELFPAY | PROVIDERS: PCP Internal Medicine; Visit Provider Nurse Practitioner Psychiatric/Mental Health | DX: F10.20 Alcohol dependence, uncomplicated (principal) | CPT/HCPCS: 99212 ==

== ENCOUNTER 2024-04-02 09:52 | Outpatient (AMB) | payer OTHER, SELFPAY ==
[2024-04-02 09:53] VITALS: BP 124/82; PULSE 81; O2SAT 97; BMI 35.0
--- NOTE | 2024-04-02 09:53 | A.OFFPC_ITS ---
Vital Signs 04/02/24 09:53 Height 5 ft 9 in Weight 237 lb BMI 35.0 BP 124/82 Blood Pressure Location Lt brachial Position Sitting Pulse 81 Pulse Source Pulse Oximeter Pulse Oximetry (%) 97 Oxygen Delivery Method Room Air Intake Visit Reasons: 4 Month F/U Public Relations Specialist Required: No Accompanied by: Self / Same As Patient Allergies No Known Allergies Allergy (Verified 04/02/24 10:09) Medication List - Last Reconciled 04/02/24 by Edward Lockwood MD acarbose 25 mg PO DAILY acetaminophen 650 mg PO Q4H PRN aspirin 81 mg PO DAILY aspirin 81 mg PO DAILY blood pressure monitor As directed [BLOOD PRESSURE MONITOR As directed] blood sugar diagnostic (FreeStyle Lite Strips) As directed once a day blood sugar diagnostic As directed blood-glucose meter (FreeStyle Lite Meter kit) As directed blood-glucose meter As directed [BOTABAY HANDICAP GRAB BARS As directed] bupropion HCl XL 300 mg PO QAM 90 days cholecalciferol (vitamin D3) 25 mcg PO DAILY clonazepam 1 mg PO DAILY PRN 30 days cyanocobalamin (vitamin B-12) 100 mcg PO DAILY cyclobenzaprine 5 mg PO TID PRN diphenhydramine HCl 25 - 50 mg (1 - 2 x 25 mg) PO QID PRN docusate sodium (Colace) 100 mg PO BID famotidine 20 mg PO BID flash glucose sensor (FreeStyle Della 2 Sensor kit) As directed fluoxetine 30 mg (3 x 10 mg) PO DAILY 90 days gabapentin 100 mg PO TID lancets (FreeStyle Lancets) As directed once a day lancets As directed lisinopril 7.5 mg (1.5 x 5 mg) PO DAILY 90 days loratadine 10 mg PO DAILY magnesium oxide 400 mg PO DAILY 90 days meloxicam 7.5 mg PO DAILY metformin 1,000 mg PO BID 30 days multivitamin 1 tab PO DAILY naltrexone microspheres ER (Vivitrol) 380 mg IM Q4W nortriptyline 50 mg PO DAILY omeprazole 40 mg PO DAILY ondansetron HCl (Zofran) 4 mg PO Q8H PRN quetiapine 50 mg PO BID [Raised Toilet Seat with Adjustable padded arms - measured at 18.5 - 21.5 As directed] [SHOWER GRAB BARS As directed] sucralfate (Carafate) 1 g PO QIDACHS 15 days ursodiol 600 mg PO DAILY varenicline 1 mg PO BID 28 days zolpidem (Ambien) 10 mg PO BEDTIME PRN 30 days Tobacco use date assessed: 04/02/24 Dental Screening Dental Screen Date: 04/02/24 Did you have a dental visit in the last 12 months?: Yes Did you have a dental problem in the last 6 months where you did not have access to dental care?: No Was dental information given to patient?: Patient has dentist HPI 4 Month F/U HPI Details Patient comes in today for his follow up visit He has been struggling with alcohol use disorder for the past year or so, which he states started when he first noticed that drinking alcohol tends to relieve his headaches He suffers from cervical dystonia, which is likely the main etiology of her recurrent headaches He was getting Botox injections into his cervical muscles from his neurologist (Dr. Pickett) at [facility] but was recently informed that his neurologist had left and moved out of state and he will be rescheduled to see another provider in the same practice but his appointment is booked out into May 2024 States that his alcohol use continued as he was just trying to get some relief for his headaches until he and his realized that his drinking was now out of hand (was drinking up to 30 beers a day most recently) and he then sought help with this He was being seen by Lacey Olea at our addiction clinic for the past couple of months but he recently switch over to [facility] in [place] He was started on Vivitrol injections every 4 weeks and he is now into his 3rd week on IM Vivitrol and feels that he is doing okay States that he has been completely sober now for a few weeks but notes that his headaches have now recurred and he is hoping to be able to get in to see neurology TANYA and resume his Botox injections He denies any dizziness Denies any chest pains, no increased SOB No nausea/vomiting, no abdominal pain No change in bowel habits noted He was not able to get his follow up labs done prior to coming in today He is also inquiring about the possibility of starting him on Wegovy injections as he would like to try losing some weight [facility] Medical History (Updated 04/02/24 @ 12:31 by Edward Lockwood MD) Essential hypertension Cervical dystonia Vitamin D deficiency Mood disorder Mixed hyperlipidemia Polycystic kidney disease Obesity (BMI 30-39.9) Epigastric abdominal pain Stroke Insomnia Subarachnoid hemorrhage Umbilical hernia Pulmonary embolism Lyme disease Osteoarthritis Depression with anxiety Hiatal hernia Obstructive sleep apnea Morbid obesity GERD (gastroesophageal reflux disease) Diabetes mellitus Hypertension Surgical History Status post repair of ventral hernia H/O umbilical hernia repair S/P laparoscopic appendectomy History of back surgery Gastric bypass status for obesity Family History Mother History of diabetes mellitus Maternal Grandmother History of diabetes mellitus History of hypertension History of breast cancer Sister History of diabetes mellitus Social History Household Members: Spouse and Children Housing: Apartment Are you a primary care coordination manager to a significant other at home: No Do you presently have visiting nurse or other home services: Yes Alcohol intake: current Alcohol intake frequency: holidays/special occasions only Alcohol type: beer Patient Tobacco Use Status: Former Tobacco user Tobacco use type: Cigarette Cigarettes Per Day: 5 e-Cigarette/Vaping Use: Never Used Second Hand Smoke Exposure: Yes service: No Current occupational status: disabled Cognitive needs: No Hearing needs: No Vision needs: No Questionnaire PHQ-9 Over the last 2 weeks, how often have you been bothered by any of the following problems? 1. Little interest or pleasure in doing things: not at all 2. Feeling down, depressed, or hopeless: more than half the days 3. Trouble falling or staying asleep, or sleeping too much: not at all 4. Feeling tired or having little energy: not at all 5. Poor appetite or overeating: not at all 6. Feeling bad about yourself - or that you are a failure or have let yourself or your family down: not at all 7. Trouble concentrating on things, such as reading the newspaper or watching television: not at all 8. Moving or speaking so slowly that other people could have noticed. Or the opposite - being so fidgety or restless that you have been moving around a lot more than usual: not at all 9. Thoughts that you would be better off or of hurting yourself in some way: not at all Total score: 2 Depression Screening Interpretation: Positive Depression Screening Follow-up: Existing condition and In treatment Depression Screening Done: Yes 07543 - PHQ-9 Billing: Yes Source: Developed by Drs. Bartolo Edwards, Gina Cowan, Theo Costello and colleagues, with an educational karma from [employer] Thrive Questionnaire Date Thrive assessed: 04/02/24 I am a: Patient What is your living situation today?: I have a steady place to live Within the past 12 months, did the food you bought not last and you didn't have the money to get more?: Never true Within the past 12 months, did you worry whether your food would run out before you got money to buy more?: Never true Do you have trouble paying for medicines?: No Do you have trouble getting transportation to medical appointments?: No Do you have trouble paying your heating and electricity bill?: No Do you have trouble taking care of your child, family member or friend?: No Do you have trouble with day-to-day activities such as bathing, preparing meals, shopping, managing finances, etc.?: No Are you currently unemployed and looking for a job?: No Are you interested in more education?: No Please select the resources that you would like help with: None Currently or been in a relationship where the following occur: No concerns reported THRIVE Score: 0 AUDIT C Alcohol Use Questionnaire (AUDIT-C) 2. How many drinks containing alcohol do you have on a typical day when you are drinking?: 1 or 2 3. How often do you have six or more drinks on one occasion?: Weekly Total Score: 3 Score Reviewed/Action Taken: Yes PAOLA-7 AMB Questionnaire PAOLA-7 Date PAOLA - 7 assessed: 04/02/24 Feeling nervous, anxious, or on edge: 0 = Not at all Not being able to stop or control worryin = Several days Worrying too much about different things: 0 = Not at all Trouble relaxin = Not at all Being so restless that it is hard to sit still: 0 = Not at all Becoming easily annoyed or irritable: 0 = Not at all Feeling afraid as if something awful might happen: 0 = Not at all Total PAOLA-7 score (0-4 normal; 5-9 mild; 10-14 moderate; 15-21 severe): 1 Source: Developed by Drs. Bartolo Edwards, Gina Cowan, Theo Costello and colleagues, with an educational karma from [employer] PAOLA-7 Assessment Billing PAOLA-7 Assessment Tool: PAOLA-7 Assessment 24712 Review of Systems Const Denies chills, Denies fatigue, Denies fever(s) and Reports headache(s) (recurrent - see HPI) ENT Denies dysphagia, Denies dizziness, Denies otalgia, Reports headache(s) (recurrent - see HPI), Reports neck pain (recurrent - has cervical dystonia bilaterally), Denies odynophagia and Denies sore throat Card Denies chest pain, Denies irregular heart rhythm, Denies palpitations and Denies dyspnea Resp Denies chest congestion, Denies cough and Denies dyspnea GI Denies abdominal pain, Denies constipation, Denies dysphagia, Denies heartburn, Denies diarrhea, Denies nausea, Denies odynophagia and Denies vomiting Denies difficulty urinating, Denies dysuria and Denies urinary frequency Musc Denies back pain, Denies arthralgias and Reports neck pain (recurrent - has cervical dystonia bilaterally) Skin/Breast Denies rash Neuro Denies dizziness, Reports headache(s) (recurrent - see HPI) and Denies paresthesias Psych Reports anxiety and Reports depression Endo Denies fatigue and Denies palpitations Physical exam (Primary Care) Vital Signs: Last Vital Signs Pulse 81 04/02/24 09:53 BP 124/82 04/02/24 09:53 Pulse Ox 97 04/02/24 09:53 Oxygen Delivery Method Room Air 04/02/24 09:53 BMI result Body Mass Index 35.0 Tobacco/Smoking Status: Tobacco use Status Tobacco use date assessed 04/02/24 04/02/24 09:57 Patient Tobacco Use Status Former Tobacco user 04/02/24 09:57 Tobacco use type Cigarette 04/02/24 09:57 e-Cigarette/Vaping Use Never Used 04/02/24 09:57 PHQ-9: PHQ-9 Score PHQ-9: Total score 2 04/02/24 10:15 Depression Screening Interpretation: Positive Depression Screening Follow-up: Existing condition and In treatment Thrive Assessment: Date of Thrive Assessment Date Thrive assessed 04/02/24 04/02/24 09:57 Currently or been in a relationship where the following occur: No concerns reported Const General: no acute distress and alert HENMT Ears: TM's normal bilaterally and EAC's normal Throat: Yes posterior oropharynx normal and Yes tonsils normal (no TP congestion) Neck Neck: Yes no lymphadenopathy and Yes tender (over the levator scapula muscles on both sides) Thyroid: Thyroid normal Resp Auscultation: clear to auscultation bilaterally, no rales and no wheezes Cardio Rate: regular rate Rhythm: regular rhythm Heart sounds: no murmurs GI Palpation (GI): Soft to palpation and nontender Auscultation: normal bowel sounds General: Yes no CVA tenderness Back/Spine/Pelvis Back: no CVA tenderness Cervical Spine: cervical muscular tenderness (bilaterally) Thoracic/Lumbar Spine: No lumbar spinal tenderness Skin Rashes: no rashes Extrem General: Yes no clubbing, cyanosis or edema Coding Level of Care Code Est Pt Level 4 (57950) Diagnoses Alcohol use disorder, severe, dependence F10.20 Recurrent occipital headache R51.9 Cervical dystonia G24.3 Subarachnoid hemorrhage I60.9 Essential hypertension I10 Type 2 diabetes mellitus with hyperglycemia, without long-term current use of insulin E11.65 Diabetes mellitus type: type 2 Diabetes mellitus usp insulin use: without cabinet and trim installer use Diabetes mellitus complication status: with hyperglycemia Mixed hyperlipidemia E78.2 Polycystic kidney disease Q61.3 Elevated LFTs R79.89 Gastroesophageal reflux disease without esophagitis K21.9 Esophagitis presence: without esophagitis Vitamin D deficiency E55.9 Obstructive sleep apnea G47.33 Insomnia, unspecified type G47.00 Insomnia type: unspecified Mood disorder F39 Obesity (BMI 30-39.9) E66.9 Additional Codes PAOLA-7 Assessment Billing - PAOLA-7 Assessment Tool: PAOLA-7 Assessment 70111 ([id number]) PHQ-9 - 91520 - PHQ-9 Billing: Yes ([id number]) Assessment & Plan Assessment & Plan (1) Alcohol use disorder, severe, dependence: Code(s): F10.20 - Alcohol dependence, uncomplicated Category: Medical Plan: Patient used to follow up with Lacey Olea but [facility] [place] States that he has been completely sober for a few weeks now Continue Vivitrol IM injections 380 mg every 4 weeks (2) Recurrent occipital headache: Code(s): R51.9 - Headache, unspecified Category: Medical Plan: This is most likely the source of his recurrent headaches for the past few years He recalls experiencing (+) significant relief of his headaches with Botox injections but his neurologist (Dr. Pickett) recently moved out of state and his last appointment was cancelled He was advised that he will be rescheduled with another provider in the same practice but he is not able to get an appointment earlier than May 2024 He is hoping to get on a cancellation list and be seen sooner to resume his Botox injections in case someone cancels their appointment Follow up with neurology as scheduled (3) Cervical dystonia: Code(s): G24.3 - Spasmodic torticollis Category: Medical Plan: This again is the most likely the source of his recurrent headaches for the past few years and he did respond well to Botox injections in the past but his appointment was rescheduled out to May 2024 as his previous neurologist moved out of state He is hoping to get on a cancellation list and be seen sooner to resume his Botox injections in case someone cancels their appointment (4) Subarachnoid hemorrhage: Code(s): I60.9 - Nontraumatic subarachnoid hemorrhage, unspecified Category: Medical Plan: This occurred spontaneously in the right frontal lobe in 09/2020, 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 in the setting of polycystic kidney disease His previous left-sided hemiparesis has since completely resolved but he still has residual right-sided headaches, which have mostly been well-controlled with Nortriptyline 50 mg Q HS Follow up with neurology as scheduled (5) Essential hypertension: Code(s): I10 - Essential (primary) hypertension Category: Medical Plan: Reinforced low sodium diet - goal is systolic BP of at least 120 mm or less Continue Lisinopril 7.5 mg (5 mg x 1.5 tablets) QD Follow up with nephrology as scheduled (6) Diabetes mellitus: Code(s): E11.9 - Type 2 diabetes mellitus without complications Category: Medical Qualifiers: Diabetes mellitus type: type 2 Diabetes mellitus cabinet and trim installer insulin use: without usp use Diabetes mellitus complication status: with hyperglycemia Qualified Code(s): E11.65 - Type 2 diabetes mellitus with hyperglycemia Plan: His HgbA1c was at 5.5% back in October 2023 (was previously at 5.8% a few months prior) - goal is <6.5% Reinforced diabetic diet Continue Metformin 1000 mg BID (7) Mixed hyperlipidemia: Code(s): E78.2 - Mixed hyperlipidemia Category: Medical Plan: He was not able to get his follow up labs done prior to his appointment today - is advised to go and get them done TANYA as soon as he leaves the office today Reinforced low cholesterol diet Will recheck his labs in 4 months for follow up (8) Polycystic kidney disease: Code(s): Q61.3 - Polycystic kidney, unspecified Category: Medical Plan[facility] Reportedly had a renal sonogram done at [facility] last year, which we assume came back with no changes as patient states that he never received a call back regarding his results He has reportedly been advised that he will need a kidney transplant at some point in the future (9) Elevated LFTs: Code(s): R79.89 - Other specified abnormal findings of blood chemistry Category: Medical Plan: Have advised him again that his LFTs have increased significantly from previous on his recent labs done a few weeks ago, likely due to his recent bout(s) with alcohol abuse He is again advised to completely avoid taking any Acetaminophen-containing medications at this time due to his significantly elevated LFTs Should also not go back to drinking any alcohol, which patient is aware of considering that he is currently on Vivitrol injections Abdominal US done in December 2023 revealed (+) mildly enlarged liver measuring 18.7 cm with increased echogenicity suggesting hepatic steatosis. The gallbladder was distended measuring 13.9 cm without sonographic evidence of acute cholecystitis Will recheck his LFTs TANYA for follow up (10) GERD (gastroesophageal reflux disease): Code(s): K21.9 - Gastro-esophageal reflux disease without esophagitis Category: Medical Qualifiers: Esophagitis presence: without esophagitis Qualified Code(s): K21.9 - Gastro-esophageal reflux disease without esophagitis Plan: Dietary restrictions reinforced Continue Omeprazole 20 mg QD (11) Vitamin D deficiency: Code(s): E55.9 - Vitamin D deficiency, unspecified Category: Medical Plan: Continue Vitamin D3 1000 units QD (12) Obstructive sleep apnea: Code(s): G47.33 - Obstructive sleep apnea (adult) (pediatric) Category: Medical Plan: Continue using his CPAP device daily when sleeping at night (13) Insomnia: Code(s): G47.00 - Insomnia, unspecified Category: Medical Qualifiers: Insomnia type: unspecified Qualified Code(s): G47.00 - Insomnia, unspecified Plan: Sleep hygiene reinforced Continue Zolpidem 10 mg QHS and Trazodone 50 mg QHS (14) Mood disorder: Code(s): F39 - Unspecified mood [affective] disorder Category: Medical Plan: S/P suicide attempt (tried to intentionally overdose on Trazodone 50 mg by ingestion several tablets at once followed by alcohol ingestion) last year on 02/10/2023 - he was treated with activated charcoal in the ER States that he is currently doing well and feels a lot better than he did before Continue Bupropion XL 300 mg QD, Fluoxetine 10 mg 3 caps (30 mg ) QD, Gabapentin 100 mg TID, Quetiapine 50 mg BID and Clonazepam 1 mg QD PRN Follow up with psychiatry as scheduled; he continues to follow up with his therapist weekly as well (15) Obesity (BMI 30-39.9): Code(s): E66.9 - Obesity, unspecified Category: Medical Plan: Reinforced diet/exercise as tolerated/lose weight Follow-up with weight management as scheduled He is currently looking to be started on a GLP1 like Wegovy to help him lose weight - states that his is on a similar Rx and has been doing well in terms of weight loss Have advised him to get his labs done first to follow up on his LFTs as well as his other issues and if they are all normal, then we can consider trying him on a GLP 1 to help him lose weight He has also been advised that starting on a GLP1 to lose weight may potentially exacerbate his depression and as he does have a Hx of depression and anxiety, I just felt that he should be aware of this potential side effect as well Plan Follow up in 4 months Orders: Orders Complete Blood Count Auto Diff 4 Months D64.9 - Anemia, unspecified Hemoglobin A1c 4 Months E11.9 - Type 2 diabetes mellitus without complications Microalbumin, Random (w Creat) 4 Months E11.9 - Type 2 diabetes mellitus without complications TSH reflex Free T4 4 Months E78.00 - Pure hypercholesterolemia, unspecified UA CC w/rflx Micro + Cult 4 Months R30.0 - Dysuria Vitamin D 25-OH Total 4 Months E55.9 - Vitamin D deficiency, unspecified Comprehensive [place]. Panel Fast 4 Months E78.00 - Pure hypercholesterolemia, unspecified Lipid Panel 4 Months E78.00 - Pure hypercholesterolemia, unspecified Vitamin B12 and Folate 4 Months E53.8 - Deficiency of other specified B group v itamins
== END 2024-04-02 10:25 | disposition home or self-care (01) ==
PROVIDERS: PCP Internal Medicine; Visit Provider Internal Medicine
DX: E11.65 Type 2 diabetes mellitus with hyperglycemia (principal); F10.20 Alcohol dependence, uncomplicated; I60.9 Nontraumatic subarachnoid hemorrhage, unspecified; F39 Unspecified mood [affective] disorder; R51.9 Headache, unspecified; G24.3 Spasmodic torticollis; I10 Essential (primary) hypertension; E78.2 Mixed hyperlipidemia; Q61.3 Polycystic kidney, unspecified; R79.89 Other specified abnormal findings of blood chemistry; K21.9 Gastro-esophageal reflux disease without esophagitis; E55.9 Vitamin D deficiency, unspecified

== ENCOUNTER 2024-04-02 09:52 | Outpatient (REF) | payer OTHER, SELFPAY ==
[2024-04-02 10:55] LABS: MANUAL DIFF FLAG NO
[2024-04-02 11:53] LABS: Basophils Percent Auto 0.5 % (0-2); Eosinophils Absolute Auto 0.1 X10*3/uL (0.0-0.4); Hematocrit 46.2 % (42.0-52.0); Hemoglobin 15.4 g/dl (14.0-18.0); Imm Gran Abs Auto 0.02 X10*3/uL (0.00-0.03); Imm Gran Pct Auto 0.2 % (0.0-0.4); Lymphocytes Absolute Auto 2.3 X10*3/uL (1.2-4.9); Lymphocytes Percent Auto 26.6 % (20-40); Mean Corpuscular HGB Conc 33.3 g/dl (31.0-36.0); Mean Corpuscular Hemoglobin 30.9 pg (27.0-33.0); Mean Corpuscular Volume 92.6 fL (80.0-98.0); Mean Platelet Volume 9.8 fL (9.4-12.4); Monocytes Absolute Auto 0.7 X10*3/uL (0.1-1.2); Monocytes Percent Auto 7.5 % (2-11); Neutrophils Absolute Auto 5.5 x10*3/uL (2.0-8.3); Neutrophils Percent Auto 64.2 % (45-73); Platelet Count 274 X10*3/uL (160-400); Red Blood Count 4.99 X10*6/uL (4.60-5.80); Red Cell Distribution Width 12.2 % (11.0-16.0); White Blood Count 8.6 X10*3/uL (4.8-10.8)
[2024-04-02 12:02] LABS: Estimated Average Glucose 117 mg/dL; Hemoglobin A1C 149.0163 umol/L; Hemoglobin A1c % 5.7 % (<6.0); Total Hemoglobin (HGBA1C) 3839.5209 umol/L
[2024-04-02 12:02] LABS: Appearance Urine Clear; Color Urine Dark Yellow; Glucose Urine UA Negative (Negative); Leukocyte Esterase Urine Negative (Negative); Nitrite Urine Negative (Negative); PH 5.5 (5.0-9.0); Specific Gravity - Urine 1.025 (1.005-1.025); Urine Blood Negative (Negative); Urine Ketones Trace mg/dL (Negative); Urine Protein Negative (Neg-Trace)
[2024-04-02 12:33] LABS: Alanine Aminotransferase 68 U/L (0-40); Alkaline Phosphatase 48 U/L (39-117); Anion Gap 8 (12-20); Aspartate Amino Transferase 45 U/L (5-37); Bilirubin Total 0.4 mg/dL (0.0-1.0); Blood Urea Nitrogen 10 mg/dL (9-16); Carbon Dioxide 30 mmol/L (22-29); Chloride 108 mmol/L (96-108); Cholesterol 134 mg/dL (<200); Estimated Glomerular Filt Rate > 60; Glucose Fasting 119 mg/dL (60-99); HDL Cholesterol 36 mg/dL (>40); LDL Cholesterol Calculated 84 mg/dL (<100); Potassium 3.7 mmol/L (3.3-5.1); Sodium 142 mmol/L (135-145); Total Protein 7.4 g/dL (6.5-8.0); Triglycerides 70 mg/dL (<150)
[2024-04-02 12:40] LABS: Vitamin D 25-OH Total 36.3 ng/mL (>30)
[2024-04-02 13:19] LABS: Creatinine Urine 226.34 mg/dL; Microalbum/Creatinine Ratio Ur 7.9 ug/mg cr (<30)
[2024-04-09 16:24] LABS: FIB-ALT 54 U/L (9-46); FIB-Alpha-2-Macroglobulin 261 mg/dL (106-279); FIB-Apolipoprotein A1 138 mg/dL (94-176); FIB-GGT 221 U/L (3-95); FIB-Haptoglobin 96 mg/dL (43-212); FIB-Total Bilirubin 0.4 mg/dL (0.2-1.2); Liver Fibrosis Score 0.51; Liver Fibrosis Stage F2; Nec Inflam Act Grade A1-A2; Nec Inflam Act Score 0.39; Reference ID 5237992
== END 2024-04-02 09:53 | disposition home or self-care (01) ==
LOC: HO.LAB 09:52
PROVIDERS: PCP Internal Medicine; Visit Provider Internal Medicine
DX: F10.20 Alcohol dependence, uncomplicated (principal); R51.9 Headache, unspecified; G24.3 Spasmodic torticollis; I60.9 Nontraumatic subarachnoid hemorrhage, unspecified; I10 Essential (primary) hypertension; E11.65 Type 2 diabetes mellitus with hyperglycemia; E78.2 Mixed hyperlipidemia; R79.89 Other specified abnormal findings of blood chemistry; K21.9 Gastro-esophageal reflux disease without esophagitis; E55.9 Vitamin D deficiency, unspecified; G47.33 Obstructive sleep apnea (adult) (pediatric); G47.00 Insomnia, unspecified; F39 Unspecified mood [affective] disorder; E66.9 Obesity, unspecified; D64.9 Anemia, unspecified; R30.0 Dysuria; E78.00 Pure hypercholesterolemia, unspecified; E53.8 Deficiency of other specified B group vitamins; Z79.899 Other long term (current) drug therapy; Q61.3 Polycystic kidney, unspecified; Z99.89 Dependence on other enabling machines and devices
CPT/HCPCS: 36415; 80053; 80061; 81003; 81596; 82043; 82306; 82570; 83036; 85025; 96127; 99212

== ENCOUNTER 2024-11-29 12:23 | Emergency (ER) | payer OTHER, SELFPAY ==
--- NOTE | ~2024-11-29 | US_ITS ---
EXAMINATION: US ABDOMEN LIMITED CLINICAL INFORMATION: Epigastric/right upper quadrant abdominal pain.. COMPARISON: December 19, 2023. TECHNIQUE: Real-time ultrasound right upper quadrant abdomen using grayscale technique. Limited. FINDINGS: Gallbladder is fluid-filled. No pericholecystic fluid collection or gallbladder wall thickening. Common bile duct measures 2 mm. Liver measures 17 cm with coarse echotexture. No gross solid or cystic lesion detected by the technologist. Main portal vein is patent with normal hepatopedal flow direction. No ascites in the hepatorenal fossa. Right kidney measures 15 cm. Mild increased echotexture. Renal cortical thinning. There are multifocal different sizes anechoic lesions throughout the renal cortex and corticomedullary junction, the largest measures 2 cm. There are multiple hyperechoic lesions at the corticomedullary junction measuring less than 8 mm. No gross hydronephrosis. US/US abdomen limited IMPRESSION: No cholelithiasis or choledocholithiasis. Nonobstructing nephrolithiasis, right kidney. Multiple renal cysts. No gross ascites. Hepatomegaly and likely steatosis. Electronically signed by: Ronnie Maher MD 11/29/2024 03:47 PM EDT
[2024-11-29 12:43] VITALS: BP 144/82; PULSE 71; RESP 17; TEMP 36.4; O2SAT 97; BMI 38.4
--- NOTE | 2024-11-29 12:43 | ED.ABDPAIN ---
HPI - Abdominal Pain General Chief Complaint: Abdominal Pain Stated Complaint: Abd pain Time Seen by Provider: 11/29/24 13:55 Source: patient Mode of arrival: ambulatory Limitations: no limitations History of Present Illness ED Provider: Mai Regalado PA-C HPI narrative: 44-year-old male with a history of alcohol use disorder, HTN, polycystic kidney disease, HLD, mood disorder, frequent headaches, history of suicide attempt in the past, GERD, diabetes, history of gastric bypass, history of appendectomy and ventral hernia repair who presents to the ER for evaluation of epigastric pain that started last night. he states the pain is sharp and it was started after he ate rice and beans last night. It does not radiate. He denies any recent alcohol use, he has been sober for the last 10 months. he denies any associated nausea, vomiting, diarrhea or constipation. He last had a bowel movement this morning that was normal. He denies any associated chest pain or shortness of breath. MD elicited complaint: abdominal pain Pertinent past history: none Onset (ago): hour(s) Pain Consistency: constant Location: epigastric Severity: moderate Quality: sharp Radiation: none Migration to: no migration Exacerbating factors: nothing Relieving factors: nothing Associated symptoms: denies other symptoms Related Data Home Medications ?Medication ?Instructions ?Recorded ?Confirmed blood sugar diagnostic #10 ea 02/08/20 04/02/24 blood-glucose meter #1 ea 02/08/20 04/02/24 docusate sodium 100 mg capsule 100 mg PO BID 02/08/20 04/02/24 (Colace) lancets 28 gauge #100 ea 02/08/20 04/02/24 acetaminophen 325 mg capsule 650 mg PO Q4H PRN Pain 06/03/20 04/02/24 cyclobenzaprine 5 mg tablet 5 mg PO TID PRN Pain 06/03/20 04/02/24 acarbose 25 mg tablet 25 mg PO DAILY 12/16/20 04/02/24 loratadine 10 mg tablet 10 mg PO DAILY 03/01/22 04/02/24 nortriptyline 50 mg capsule 50 mg PO DAILY 03/01/22 04/02/24 ursodiol 300 mg capsule 600 mg PO DAILY 03/01/22 04/02/24 gabapentin 100 mg capsule 100 mg PO TID 03/11/23 04/02/24 quetiapine 50 mg tablet 50 mg PO BID 03/11/23 04/02/24 naltrexone microspheres 380 mg 380 mg IM Q4W 04/02/24 04/02/24 intramuscular suspension,extended release (Vivitrol) Previous Rx's ?Medication ?Instructions ?Recorded multivitamin 1 tab PO DAILY #30 tabs 02/29/20 diphenhydramine HCl 25 mg capsule 25 - 50 mg (1 - 2 x 25 mg) PO QID 10/22/20 PRN migraine headache/nausea #30 caps ondansetron HCl 4 mg tablet 4 mg PO Q8H PRN nausea and 11/18/20 (Zofran) vomiting #60 tabs omeprazole 40 mg capsule,delayed 40 mg PO DAILY #30 caps 12/03/20 release varenicline tartrate 1 mg tablet 1 mg PO BID 28 days #56 tabs 03/04/21 flash glucose sensor (FreeStyle #2 ea 06/05/21 Della 2 Sensor kit) sucralfate 1 gram tablet (Carafate) 1 g PO QIDACHS 15 days #60 tabs 07/13/21 cyanocobalamin (vitamin B-12) 100 100 mcg PO DAILY #90 tabs 09/25/21 mcg tablet BOTABAY HANDICAP GRAB BARS #1 ea 11/05/21 SHOWER GRAB BARS #1 ea 11/05/21 blood pressure monitor #1 ea 11/05/21 blood sugar diagnostic (FreeStyle #100 ea 11/05/21 Lite Strips) blood-glucose meter (FreeStyle #1 ea 11/05/21 Lite Meter kit) lancets 28 gauge (FreeStyle #100 ea 11/05/21 Lancets) BLOOD PRESSURE MONITOR #1 ea 12/04/21 Raised Toilet Seat with Adjustable #1 ea 12/04/21 padded arms - measured at 18.5 - 21.5 meloxicam 7.5 mg tablet 7.5 mg PO DAILY #10 tabs 04/29/22 famotidine 20 mg tablet 20 mg PO BID #180 tabs 07/23/22 cholecalciferol (vitamin D3) 25 25 mcg PO DAILY #30 caps 02/16/23 mcg (1,000 unit) capsule zolpidem 10 mg tablet (Ambien) 10 mg PO BEDTIME PRN insomnia 30 02/23/23 days #30 tabs clonazepam 1 mg tablet 1 mg PO DAILY PRN anxiety 30 days 01/06/24 #30 tabs magnesium oxide 400 mg (241.3 mg 400 mg PO DAILY 90 days #90 tabs 01/06/24 magnesium) tablet SHOWER CHAIR #1 ea 04/09/24 aspirin 81 mg chewable tablet 81 mg PO DAILY 04/23/24 lisinopril 5 mg tablet 7.5 mg (1.5 x 5 mg) PO DAILY 90 04/30/24 days #135 tabs metformin 1,000 mg tablet 1,000 mg PO BID 90 days #180 tabs 08/25/24 fluoxetine 10 mg capsule 30 mg (3 x 10 mg) PO DAILY 90 days 08/29/24 #270 caps aspirin 81 mg chewable tablet 81 mg PO DAILY #90 tabs 11/12/24 bupropion HCl 300 mg 24 hr tablet, 300 mg PO QAM 90 days #90 tabs 11/15/24 extended release Allergies Allergy/AdvReac Type Severity Reaction Status Date / Time No Known Allergies Allergy Verified 11/29/24 12:45 Review of Systems Review of Systems Yes all other systems are reviewed and are negative FOR[facility]LY [facility] Past Medical History Medical History (Updated 11/29/24 @ 16:21 by KHADIJAH Ríos) Essential hypertension Cervical dystonia Vitamin D deficiency Mood disorder Mixed hyperlipidemia Polycystic kidney disease Obesity (BMI 30-39.9) Epigastric abdominal pain Stroke Insomnia Subarachnoid hemorrhage Umbilical hernia Pulmonary embolism Lyme disease Osteoarthritis Depression with anxiety Hiatal hernia Obstructive sleep apnea Morbid obesity GERD (gastroesophageal reflux disease) Diabetes mellitus Hypertension Surgical History Status post repair of ventral hernia H/O umbilical hernia repair S/P laparoscopic appendectomy History of back surgery Gastric bypass status for obesity Family History Family History Mother History of diabetes mellitus Maternal Grandmother History of diabetes mellitus History of hypertension History of breast cancer Sister History of diabetes mellitus Social History Social History Household Members: Spouse and Children Housing: Apartment Are you a primary wound care specialist to a significant other at home: No Do you presently have visiting nurse or other home services: Yes Alcohol intake: current Alcohol intake frequency: holidays/special occasions only Alcohol type: beer Patient Tobacco Use Status: Former Tobacco user Tobacco use type: Cigarette Cigarettes Per Day: 5 e-Cigarette/Vaping Use: Never Used Second Hand Smoke Exposure: Yes service: No Current occupational status: disabled Cognitive needs: No Hearing needs: No Vision needs: No Physical Exam ED Exam Exam: Appearance: Alert. Oriented X3. No acute distress. Head: normocephalic, atraumatic. Eyes: Pupils equal, round and reactive to light. ENT: Pharynx normal. No tonsillar swelling or exudate. Neck: Normal inspection. Neck supple. CVS: Normal heart rate and rhythm. Pulses normal. Respiratory: No respiratory distress. Breath sounds normal. Abdomen: Obese Soft w/ epigastric tenderness, RUQ tenderness to deep palpation without rebound or guarding. +BS x4 Skin: Skin warm and dry. Normal skin color. Normal skin turgor. No rashes. Extremities: No lower extremity edema. No joint swelling. Neuro/psych: Oriented X 3. grossly normal, nonfocal. Normal speech and cognition. Vital Signs: Vital Signs - 24 hr 11/29/24 12:43 11/29/24 13:39 11/29/24 16:27 Temperature 97.5 F 97.9 F 0 F L Pulse Rate 71 60 57 Respiratory Rate 17 14 18 Blood Pressure 144/82 H 117/74 151/90 H Pulse Oximetry 97 98 99 Oxygen Delivery Method Room Air Room Air Room Air BMI result Body Mass Index 38.4 Course Course Course Narrative: KHADIJAH Ribera 11/29/24 1243 This is a Rapid Medical Examination (RME) performed by Hector Vu PA-C in triage. Full HPI, ROS, assessment and treatment plan per primary provider in the Main ED. Hx: 44 yo M here for eval of epigastric abdominal pain. pain began after eating rice and beans for dinner. denies eoth contumption. surgical history: gastric bypass 2 yrs ago, appendectomy. PE/vitals: ttp of epigastric region w/ guarding. no rebound. Plan: labs Medical Decision Making Medical Decision Making MDM Narrative: 44 yo male presenting to the ER for evaluation of epigastric pain that started last night after eating rice and beans. no N/V/D. pain does not radiate. VS are stable. Labs showing mild anemia, normal LFTs aside from AST 41. is concerned about his gallbladder. No concerning Differential Diagnosis Differential Diagnoses: The differential diagnosis associated with the presentation includes Lab Data MDM Lab Attestation statement: I reviewed the patient's lab results. 11/29/24 12:52 11/29/24 12:52 Labs: Lab Results 11/29/24 11/29/24 Range/Units 12:52 14:02 WBC 7.4 (4.8-10.8) X10*3/uL RBC 4.79 (4.60-5.80) X10*6/uL Hgb 13.6 L (14.0-18.0) g/dl Hct 39.4 L (42.0-52.0) % MCV 82.3 (80.0-98.0) fL MCH 28.4 (27.0-33.0) pg MCHC 34.5 (31.0-36.0) g/dl RDW 12.7 (11.0-16.0) % Plt Count 212 (160-400) X10*3/uL MPV 9.8 (9.4-12.4) fL Immature Gran % (Auto) 0.3 (0.0-0.4) % Neut % (Auto) 53.7 (45-73) % Lymph % (Auto) 34.8 (20-40) % [place] % (Auto) 8.4 (2-11) % Eos % (Auto) 2.3 (0-4) % Baso % (Auto) 0.5 (0-2) % Lymph # (Auto) 2.6 (1.2-4.9) X10*3/uL [place] # (Auto) 0.6 (0.1-1.2) X10*3/uL Eos # (Auto) 0.2 (0.0-0.4) X10*3/uL Baso # (Auto) 0.0 (0.0-0.2) X10*3/uL Abs Immat Gran (auto) 0.02 (0.00-0.03) X10*3/uL Absolute Neuts (auto) 4.0 (2.0-8.3) x10*3/uL Absolute Nucleated RBC 0.000 (0.0-0.012) X10*3/uL Nucleated RBC % (auto) 0.0 (0.0-0.2) /100WBC Sodium 142 (135-145) mmol/L Potassium 4.2 (3.3-5.1) mmol/L Chloride 110 H (96-108) mmol/L Carbon Dioxide 24 (22-29) mmol/L Anion Gap 12 (12-20) BUN 17 H (9-16) mg/dL Creatinine 0.92 (0.5-1.4) mg/dL Estim Creat Clear Calc 132.5 Estimated GFR > 60 Random Glucose 199 H (60-115) mg/dL Calcium 9.5 (8.4-10.2) mg/dL Magnesium 2.2 (1.6-2.6) mg/dL Total Bilirubin 0.6 (0.0-1.0) mg/dL AST 41 H (5-37) U/L ALT 39 (0-40) U/L Alkaline Phosphatase 76 (39-117) U/L Total Protein 7.3 (6.5-8.0) g/dL Albumin 4.2 (3.5-5.0) g/dL Lipase 26 (8-78) U/L Urine Color Yellow Urine Appearance Clear Urine pH 5.5 (5.0-9.0) Ur Specific [place] >= 1.030 H (1.005-1.025) Urine Protein Negative (Neg-Trace) mg/dL Urine Glucose (UA) 500 H (Negative) mg/dL Urine Ketones Trace (Negative) mg/dL Urine Blood Negative (Negative) Urine Nitrite Negative (Negative) Ur Leukocyte Esterase Negative (Negative) Urine RBC 0-2 (0-2) /HPF Urine WBC 0-5 (0-5) /HPF Ur Squamous Epith Cells 0-2 (0-2) /HPF Calcium Oxalate Crystal Present Urine Bacteria None Seen (None Seen) Hyaline Casts 0-2 (0-2) /LPF Medications Administered Discontinued Medications Generic Name Dose Route Start Last Admin Trade Name Freq PRN Reason Stop Dose Admin Al Hydroxide/Mg Hydroxide 30 ml 11/29/24 13:56 11/29/24 14:20 Magnesium Hydrox/Alum Hydrox 30 Ml Oral.Susp PO 11/29/24 13:57 Not Given ONCE ONE Belladonna Alkaloids/Phenobarbital 10 ml 11/29/24 13:56 11/29/24 14:20 Phenobarb/Hyoscy/Atropine/Scop 10 Ml Elixir PO 11/29/24 13:57 Not Given ONCE ONE Calcium Carbonate 1,500 mg 11/29/24 14:30 11/29/24 14:41 Calcium Carbonate 750 Mg Tab.Chew PO 11/29/24 14:31 Not Given ONCE ONE Lidocaine HCl 15 ml 11/29/24 13:56 11/29/24 14:20 Lidocaine Hcl Viscous 2 % 15 Ml Solution MUCOUS MEM 11/29/24 13:57 Not Given ONCE ONE Omeprazole 40 mg 11/29/24 14:30 11/29/24 14:41 Omeprazole 40 Mg Capsule. PO 11/29/24 14:31 Not Given ONCE ONE Discharge Plan Discharge Clinical Impression: Abdominal pain, epigastric Patient Disposition: Home, Self-Care Instructions: Epigastric Pain (ED) Additional Instructions: Your lab workup today was unremarkable. Your ultrasound showed no evidence of gallstones or gallbladder infectio Yourn Your pain is most likely due to gastritis which is and irritation and inflammation of your stomach lining. Start taking over the counter Priolec and see if this helps your symptoms. Stick to a bland diet. Avoid foods high in acid, avoid alcohol and NSAID medications like Aleve, Motrin, Advil or ibuprofen. Follow up with your doctor as needed. Follow up with GI doctor if you symptoms persist despite dietary modifications and medication. If you develop new or worsening symptoms call 911 or come back to the ER for further evaluation. Prescriptions: No Action multivitamin Tablet 1 tab PO DAILY Qty: 30 6RF (DME) FreeStyle Della 2 Sensor Kit See Rx Instructions .ROUTE .MEDSUPPLY Qty: 2 0RF Rx Instructions: As directed sucralfate [Carafate] 1 gram tablet 1 g PO QIDACHS 15 Days Qty: 60 0RF cyanocobalamin (vitamin B-12) 100 mcg tablet 100 mcg PO DAILY Qty: 90 0RF (DME) BOTABAY HANDICAP GRAB BARS See Rx Instructions .Route .MEDSUPPLY Qty: 1 0RF Rx Instructions: As directed (DME) SHOWER GRAB BARS See Rx Instructions .Route .MEDSUPPLY Qty: 1 0RF Rx Instructions: As directed (DME) blood pressure monitor Kit See Rx Instructions .Route Qty: 1 0RF Rx Instructions: As directed (DME) blood-glucose meter [FreeStyle Lite Meter] Kit See Rx Instructions .ROUTE .MEDSUPPLY Qty: 1 0RF Rx Instructions: As directed (DME) lancets [FreeStyle Lancets] 28 gauge misc See Rx Instructions .ROUTE .MEDSUPPLY Qty: 100 12RF Rx Instructions: As directed once a day (DME) FreeStyle Lite Strips Strip See Rx Instructions .ROUTE .MEDSUPPLY Qty: 100 12RF Rx Instructions: As directed once a day (DME) BLOOD PRESSURE MONITOR See Rx Instructions .Route .MEDSUPPLY Qty: 1 0RF Rx Instructions: As directed ([facility]) Raised Toilet Seat with Adjustable padded arms - measured at 18.5 - 21.5 See Rx Instructions .Route .MEDSUPPLY Qty: 1 0RF Rx Instructions: As directed famotidine 20 mg tablet 20 mg PO BID Qty: 180 0RF cholecalciferol (vitamin D3) 25 mcg (1,000 unit) capsule 25 mcg PO DAILY Qty: 30 6RF zolpidem [Ambien] 10 mg tablet 10 mg PO BEDTIME PRN (Reason: insomnia) 30 Days Qty: 30 1RF clonazepam 1 mg tablet 1 mg PO DAILY PRN (Reason: anxiety) 30 Days Qty: 30 0RF magnesium oxide 400 mg (241.3 mg magnesium) tablet 400 mg PO DAILY 90 Days Qty: 90 3RF (DME) SHOWER CHAIR See Rx Instructions .Route .MEDSUPPLY Qty: 1 0RF Rx Instructions: As directed aspirin 81 mg tablet,chewable 81 mg PO DAILY 6RF lisinopril 5 mg tablet 7.5 mg PO DAILY 90 Days Qty: 135 3RF metformin 1,000 mg tablet 1,000 mg PO BID 90 Days Qty: 180 1RF fluoxetine 10 mg capsule 30 mg PO DAILY 90 Days Qty: 270 1RF aspirin 81 mg Tablet,Chewable 81 mg PO DAILY Qty: 90 3RF bupropion HCl 300 mg tablet extended release 24 hr 300 mg PO QAM 90 Days Qty: 90 1RF acetaminophen 325 mg capsule 650 mg PO Q4H PRN (Reason: Pain) cyclobenzaprine 5 mg tablet 5 mg PO TID PRN (Reason: Pain) diphenhydramine HCl 25 mg capsule 25 - 50 mg PO QID PRN (Reason: migraine headache/nausea) Qty: 30 0RF varenicline tartrate 1 mg tablet 1 mg PO BID 28 Days Qty: 56 3RF omeprazole 40 mg capsule,delayed release(DR/EC) 40 mg PO DAILY Qty: 30 0RF ondansetron HCl [Zofran] 4 mg tablet 4 mg PO Q8H PRN (Reason: nausea and vomiting) Qty: 60 0RF meloxicam 7.5 mg tablet 7.5 mg PO DAILY Qty: 10 0RF gabapentin 100 mg capsule 100 mg PO TID quetiapine 50 mg tablet 50 mg PO BID nortriptyline 50 mg capsule 50 mg PO DAILY ursodiol 300 mg capsule 600 mg PO DAILY loratadine 10 mg tablet 10 mg PO DAILY (DME) FreeStyle Lite Strips Strip See Rx Instructions .ROUTE .MEDSUPPLY Qty: 10 Rx Instructions: As directed (DME) lancets 28 gauge misc See Rx Instructions topical TID Qty: 100 Rx Instructions: As directed (DME) blood-glucose meter Kit See Rx Instructions .ROUTE .MEDSUPPLY Qty: 1 Rx Instructions: As directed docusate sodium [Colace] 100 mg capsule 100 mg PO BID acarbose 25 mg tablet 25 mg PO DAILY Vivitrol 380 mg suspension,extended rel recon 380 mg IM Q4W Referrals: [facility] [Provider Group, Gastroenterology] Edward Lockwood MD [Primary Care Provider, Internal Medicine] Interventions: ED Discharge Assessment Last Done: 11/29/24 16:27 Discharge Date/Time: 11/29/24 16:28 Print Language: Uzbek
[2024-11-29 12:56] LABS: MANUAL DIFF FLAG NO
[2024-11-29 12:57] LABS: Hematocrit 39.4 % (42.0-52.0); Hemoglobin 13.6 g/dl (14.0-18.0); Imm Gran Abs Auto 0.02 X10*3/uL (0.00-0.03); Imm Gran Pct Auto 0.3 % (0.0-0.4); Lymphocytes Absolute Auto 2.6 X10*3/uL (1.2-4.9); Mean Corpuscular HGB Conc 34.5 g/dl (31.0-36.0); Mean Corpuscular Hemoglobin 28.4 pg (27.0-33.0); Mean Corpuscular Volume 82.3 fL (80.0-98.0); NRBC Abs Auto 0.000 X10*3/uL (0.0-0.012); NRBC Pct Auto 0.0 /100WBC (0.0-0.2); Platelet Count 212 X10*3/uL (160-400); Red Blood Count 4.79 X10*6/uL (4.60-5.80); White Blood Count 7.4 X10*3/uL (4.8-10.8)
[2024-11-29 13:32] LABS: Alanine Aminotransferase 39 U/L (0-40); Albumin Level 4.2 g/dL (3.5-5.0); Alkaline Phosphatase 76 U/L (39-117); Anion Gap 12 (12-20); Aspartate Amino Transferase 41 U/L (5-37); Blood Urea Nitrogen 17 mg/dL (9-16); Calcium 9.5 mg/dL (8.4-10.2); Carbon Dioxide 24 mmol/L (22-29); Chloride 110 mmol/L (96-108); Creatinine Clr Calc Pharmacy 132.5; Estimated Glomerular Filt Rate > 60; Lipase 26 U/L (8-78); Magnesium 2.2 mg/dL (1.6-2.6); Potassium 4.2 mmol/L (3.3-5.1); Sodium 142 mmol/L (135-145); Total Protein 7.3 g/dL (6.5-8.0)
[2024-11-29 13:39] VITALS: BP 117/74; PULSE 60; RESP 14; TEMP 36.6; O2SAT 98
--- OUTSIDE RECORDS SUMMARY | 2024-11-29 13:45 | XMS_ITS | Clinical Summary ---
Author Organization [facility] it Address [id number] [place] [id number] Care Team Providers Care Solid Waste Disposal Manager Name Role Phone Edward Lockwood MD Primary Care Provider Medications pantoprazole (PROTONIX) 40 mg EC tablet TAKE 1 TABLET BY MOUTH EVERY DAY 90 tablet 04/13/2024 Active Surgical History Surgery Date Site/Laterality Comments APPENDECTOMY PROCEDURE: [place] APPENDECTOMY BACK SURGERY PROCEDURE: HISTORICAL BACK SURGERY FOOT SURGERY PROCEDURE: [place] UNLISTED PROCEDURE FOOT/TOES OTHER SURGICAL HISTORY PROCEDURE: ---- OTHER ----; COMMENT: Revision of RNY to Distal GB Medical History Medical History Date Comments Diabetes (CMS/HCC V24, CMS/HCC V28) DX:Diabetes ([facility]) Social History Tobacco Use Types Packs/Day Years Used Date Smoking Tobacco: Former Smokeless Tobacco: Never Alcohol Use Standard Drinks/Week Comments Yes 0 (1 standard drink = 0.6 oz pur e alcohol) Sex and Gender Information Value Date Recorded Sex Assigned at Not on file Legal Sex Male 11:27 PM EST Gender Identity Not on file Sexual Orientation Not on file Obstetrics History Last Filed Vital Signs Vital Sign Reading Time Taken Comments Blood Pressure 152/107 06/09/2023 1:49 PM EST Pulse 84 06/09/2023 1:49 PM EST Temperature - - Respiratory Rate - - Oxygen Saturation - - Inhaled Oxygen Concentration - - Weight 109 kg (240 lb 1 oz) 06/09/2023 1:[address] Height 172.7 cm (5' 8 ) 06/09/2023 1:49 PM EST Body Mass Index 36.5 06/09/2023 1:49 PM EST Plan of Treatment Health Maintenance Due Date Last Done Comments DTaP,Tdap,and Td Vaccines (1 - Tdap) 2001 Hepatitis B Vaccines (1 of 3 - 19+ 3-dose series) 2001 Cholesterol Screening (Lipid Panel) 04/04/2022 HIV Screening 04/04/2022 Hepatitis C Screening 04/04/2022 Social Influencers of Health Screening 04/04/2022 COVID-19 Vaccine (1 - 2023-2 5 season) 2024 Depression Screening 05/02/2024 Influenza Vaccine (#1) 2024 HIB Vaccines Aged Out No longer eligi ble based on patient's age to complete this topic HPV Vaccines Aged Out No longer eligi ble based on patient's age to complete this topic Hepatitis A Vaccines Aged Out No long er eligible based on patient's age to complete this topic IPV Vaccines Aged Out No longer eligi ble based on patient's age to complete this topic MMR Vaccines Aged Out No longer eligi ble based on patient's age to complete this topic Meningococcal ACWY Vaccine Aged Out N o longer eligible based on patient's age to complete this topic Meningococcal B Vaccine Aged Out No l onger eligible based on patient's age to complete this topic Pneumococcal Vaccine: Pediat rics (0 to 5 Years) and At-Risk Patients (6 to 49 Years) Aged Out No longer eligible b ased on patient's age to complete this topic RSV Immunization Patients Un cherelle 20 months Aged Out No longer eligible b ased on patient's age to complete this topic Varicella Vaccines Aged Out No longer eligible based on patient's age to complete this topic Care Teams Solid Waste Disposal Manager Relationship Specialty Start Date End Date Edward Lockwood MD [address] [place] [address] [address] [place], [place] PCP - General Internal Medicine 05/26/20
--- OUTSIDE RECORDS SUMMARY | 2024-11-29 13:45 | XMS_ITS | Clinical Summary ---
Author Organization [facility] Address [address] [place] [address] [address] [place] [address] Phone Care Team Providers Care Cradle Placer Name Role Phone Edward Lockwood MD Primary Care Provider [phone] Allergies Active Allergy Reactions Criticality Noted Date Comments Oxycodone Itching Low 05/27/2018 Medications VITAMIN B COMPLEX-C PO Take 1 tablet by mouth 2 (two) times a day Active Multiple Vitamins-Minera ls (CENTRUM ADULTS PO) Take 1 tablet by mouth 1 (one) time each day Active Magnesium 200 MG tablet Take 2 tablets by mouth 1 (one) time each day Active acetaminophen (TYLENOL) 325 MG tablet Take 650 mg by mouth 0 Active aspirin 81 MG chewable tablet Chew 1 tablet 1 (one) time each day Active benztropine (COGENTIN) 1 MG tablet Take 1 tablet by mouth 2 (two) times a day Active Cholecalciferol 100 MCG (4000 UT) capsule Comments: Patient Notes: TAKE 1 CAPSULE BY MOUTH ONCE A DAY Duration: 100 Active clonazePAM (KlonoPIN) 1 MG tablet Take 1 mg by mouth daily Active cyanocobalamin (VITAMIN B-12) 100 MCG tablet Take 100 mcg by mouth daily Active cyclobenzaprine (FLEXERIL) 5 MG tablet Take 5 mg by mouth 3 (three) times a day if needed 9 Active Docusate Sodium (DSS) 100 MG capsule Take 1 capsule by mouth 2 (two) times a day Active FLUoxetine (PROzac) 10 MG capsule Take 1 capsule by mouth 1 (one) time each day Active ibuprofen (ADVIL,MOTRIN) 200 MG tablet Take 400 mg by mouth every 6 (six) hours if needed 0 Active lisinopril 10 MG tablet Comments: Patient Notes: TAKE 1 TABLET BY MOUTH AT BEDTIME Duration: 90 Active metFORMIN (FORTAMET) 1000 MG 24 hr tablet Take 1 tablet by mouth 1 (one) time each day Active raNITIdine (ZANTAC) 300 MG capsule Take 1 capsule by mouth 2 (two) times a day Active risperiDONE (RisperDAL) 1 MG tablet Take 2 tablets by mouth 1 (one) time each day Active ziprasidone (GEODON) 40 MG capsule ziprasidone 40 mg capsule Active D3-1000 25 MCG (1000 UT) capsule SIMON Avalos 1 Active famotidine (PEPCID) 20 MG tablet Take 20 mg by mouth 1 Active magnesium oxide (MAG-OX) 400 MG tablet 1 Active metFORMIN (GLUCOPHAGE) 1000 MG tablet Take 1,000 mg by mouth 1 Active metoclopramide (REGLAN) 10 MG tablet TAKE 1 TABLET BY MOUTH EVERY 6 HOURS NEEDED FOR NAUSEA AND VOMITING 1 Active Omeprazole 20 MG tablet delayed-release Take 1 tablet by mouth 1 (one) time each day 1 Active acarbose (PRECOSE) 25 MG tablet Take 25 mg by mouth 3 (three) times a day with meals Active fluconazole (DIFLUCAN) 100 MG tablet 1 Active gabapentin (NEURONTIN) 600 MG tablet 1 Active nortriptyline (PAMELOR) 25 MG capsule 1 Active pantoprazole (PROTONIX) 40 MG EC tablet 1 Active sucralfate (CARAFATE) 1 g tablet 1 Active ondansetron (ZOFRAN) 4 MG tablet Take 4 mg by mouth every 8 (eight) hours if needed for nausea or vomiting Active traZODone (DESYREL) 50 MG tablet Take 50 mg by mouth every night Active Active Problems Problem Noted Date Diagnosed Date Cyst of kidney 03/06/2021 Hypertensive disorder 03/06/2021 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 Patient was due to follow-up with hematology for discontinuation of Eliquis. Restart eliquis in am Type 2 diabetes mellitus without complication Overview (03/06/2021): Last Assessment & Plan: POC within nl range -Continue to hold metformin -Continue diabetic diet -Continue insulin sliding scale. Family History Relation Status Comments Father Mother Social History Tobacco Use Types Packs/Day Years Used Date Smoking Tobacco: Former Cigarettes Comments:Smoking History Inf o:Every day Alcohol Use Standard Drinks/Week Comments Yes 0 (1 standard drink = 0.6 oz pur e alcohol) Sex and Gender Information Value Date Recorded Sex Assigned at Not on file Legal Sex Male 4:51 PM EST Gender Identity Not on file Sexual Orientation Not on file Last Filed Vital Signs Vital Sign Reading Time Taken Comments Blood Pressure 134/90 10/14/2022 2:24 PM EDT Pulse 82 10/14/2022 2:24 PM EDT Temperature - - Respiratory Rate - - Oxygen Saturation 97% 10/14/2022 2:24 PM EDT Inhaled Oxygen Concentration - - Weight 110 kg (242 lb) 10/14/2022 2:24 PM EDT Height 175.3 cm (5' 9 ) 10/14/2022 2:24 PM EDT Body Mass Index 35.74 10/14/2022 2:24 PM EDT Plan of Treatment Health Maintenance Due Date Last Done Comments Hepatitis B Vaccine (1 of 3 - 19+ 3-dose series) 02/10 Pneumococcal Vaccine: Peds ( 0 to 5 Years) and At-Risk Patients (6 to 49 Years) (1 of 2 - PCV) 2001 Diabetes: Hemoglobin A1C 10/27/2020 Diabetes: Ophthalmology Exam 10/27/2020 Diabetes: Pedal Pulse Checked 10/27/2020 Diabetes: Sensory Foot Exam 10/27/2020 Diabetes: Visual Foot Exam 10/27/2020 Influenza Vaccine (#1) 2024 Insurance [facility] [place] [address] Medicaid Care Teams Cradle Placer Relationship Specialty Start Date End Date Edward Lockwood MD [address] [place] [id number] PCP - General 05/12/20
--- OUTSIDE RECORDS SUMMARY | 2024-11-29 13:45 | XMS_ITS | Encounter Summary ---
Author Organization [facility] Address [address] [place], [place] [id number] Phone Care Team Providers Care Sole Edge Inker Machine Name Role Phone Edward Lockwood MD Primary Care Provider +1 [phone] Encounter Details Date Type Department Care Team (Late st Contact Info) Description 12/12/2019 Procedure Pass OR Admitting Dept - Virtual Department [address] [place] [address] Social History Tobacco Use Types Packs/Day Years Used Date Smoking Tobacco: Every Day Cigarettes Last attempted to quit: 05/27/2009 Smokeless Tobacco: Never Alcohol Use Standard Drinks/Week Comments Yes 0 (1 standard drink = 0.6 oz pur e alcohol) rare Sex and Gender Information Value Date Recorded Sex Assigned at Male 05/23/2018 8:33 PM EST Legal Sex Male 3:47 PM EDT Gender Identity Male 05/23/2018 8:33 PM EST Sexual Orientation Straight 05/23/2018 8: 33 PM EST documented as of this encounter Plan of Treatment Not on file documented as of this encounter Visit Diagnoses Not on filedocumented in this encounter Care Teams Sole Edge Inker Machine Relationship Specialty Start Date End Date Edward Lockwood MD [address] [place] [address] [place] [address] PCP - General Internal Medicine 05/23/18 documented as of this encounter Additional Source Comments The information contained in this document represents components of the legal health record. It is not the complete legal health record.[facility]
[2024-11-29 14:09] LABS: Appearance Urine Clear; Glucose Urine UA 500 mg/dL (Negative); PH 5.5 (5.0-9.0); Specific Gravity - Urine >= 1.030 (1.005-1.025)
--- NOTE | 2024-11-29 14:38 | PC.NURSE ---
pt refuses PO edgard Higgins,and liam LUCIO notified
--- NOTE | 2024-11-29 14:41 | PC.NURSE ---
pt refuses Omeprazole and tums he says he is s/p gastric bypass so he doesnt have acid PA notified
--- NOTE | 2024-11-29 16:22 | MHC.EDTECH ---
pt refusing po trial, offered several options and still refused
[2024-11-29 16:27] VITALS: BP 151/90; PULSE 57; RESP 18; TEMP -17.7; TEMP 0; O2SAT 99
== END 2024-11-29 16:28 | disposition home or self-care (01) ==
PROVIDERS: Physician Assistant; Physician Assistant Medical; Emergency Provider Emergency Medicine Emergency Medical Services; PCP Internal Medicine
DX: R10.13 Epigastric pain (principal); R51.9 Headache, unspecified; R10.11 Right upper quadrant pain; Z79.899 Other long term (current) drug therapy; Z87.891 Personal history of nicotine dependence
CPT/HCPCS: 36415; 76705; 80053; 81001; 83690; 83735; 85025; 99284

== ENCOUNTER → 2024-11-29 14:30 | Outpatient (BNV) | payer OTHER, SELFPAY | PROVIDERS: Emergency Provider Emergency Medicine Emergency Medical Services; PCP Internal Medicine; Visit Provider Radiology Diagnostic Radiology | DX: R16.0 Hepatomegaly, not elsewhere classified (principal) | CPT/HCPCS: 76705 ==

== ENCOUNTER 2024-12-10 13:44 | Outpatient (AMB) | payer OTHER, SELFPAY ==
[2024-12-10 13:47] VITALS: BP 132/86; PULSE 80; O2SAT 96; BMI 38.1
--- NOTE | 2024-12-10 13:47 | MHC.PC.OV ---
Vital Signs 12/10/24 13:47 Height 5 ft 9 in Weight 258 lb 4 oz BMI 38.1 BP 132/86 Blood Pressure Location Lt brachial Position Sitting Pulse 80 Pulse Source Pulse Oximeter Pulse Oximetry (%) 96 Oxygen Delivery Method Room Air Intake Visit Reasons: [facility] 11/29 Fuel Conversion Technician Required: No Accompanied by: Self / Same As Patient Allergies No Known Allergies Allergy (Verified 12/10/24 14:10) Medication List - Last Reconciled 12/10/24 by Edward Lockwood MD acarbose 25 mg PO DAILY acetaminophen 650 mg PO Q4H PRN aspirin 81 mg PO DAILY aspirin 81 mg PO DAILY blood pressure monitor As directed [BLOOD PRESSURE MONITOR As directed] blood sugar diagnostic (FreeStyle Lite Strips) As directed once a day blood sugar diagnostic As directed blood-glucose meter (FreeStyle Lite Meter kit) As directed blood-glucose meter As directed [BOTABAY HANDICAP GRAB BARS As directed] bupropion HCl XL 300 mg PO QAM 90 days cholecalciferol (vitamin D3) 25 mcg PO DAILY clonazepam 1 mg PO DAILY PRN 30 days cyanocobalamin (vitamin B-12) 100 mcg PO DAILY cyclobenzaprine 5 mg PO TID PRN diphenhydramine HCl 25 - 50 mg (1 - 2 x 25 mg) PO QID PRN docusate sodium (Colace) 100 mg PO BID famotidine 20 mg PO BID flash glucose sensor (FreeStyle Della 2 Sensor kit) As directed fluoxetine 30 mg (3 x 10 mg) PO DAILY 90 days gabapentin 100 mg PO TID lancets (FreeStyle Lancets) As directed once a day lancets As directed lisinopril 7.5 mg (1.5 x 5 mg) PO DAILY 90 days loratadine 10 mg PO DAILY magnesium oxide 400 mg PO DAILY 90 days meloxicam 7.5 mg PO DAILY metformin 1,000 mg PO BID 90 days multivitamin 1 tab PO DAILY naltrexone microspheres ER (Vivitrol) 380 mg IM Q4W nortriptyline 50 mg PO DAILY omeprazole 40 mg PO DAILY ondansetron HCl (Zofran) 4 mg PO Q8H PRN quetiapine 50 mg PO BID [Raised Toilet Seat with Adjustable padded arms - measured at 18.5 - 21.5 As directed] [SHOWER CHAIR As directed] [SHOWER GRAB BARS As directed] sucralfate (Carafate) 1 g PO QIDACHS 15 days ursodiol 600 mg PO DAILY varenicline tartrate 1 mg PO BID 28 days zolpidem (Ambien) 10 mg PO BEDTIME PRN 30 days Tobacco use date assessed: 12/10/24 Dental Screening Dental Screen Date: 12/10/24 Did you have a dental visit in the last 12 months?: Yes Did you have a dental problem in the last 6 months where you did not have access to dental care?: No Was dental information given to patient?: Patient has dentist [facility] 11/29 HPI Details Patient comes in today for his [facility] follow-up visit He went to the ER back on 11/29/2024 for persistent epigastric pain He denies any associated nausea, vomiting or diarrhea Workups done in the ER all came back normal, with no LFT elevation He was advised that he likely has gastritis and was advised to start taking OTC Prilosec and to continue on his Carafate and famotidine He was also advised to avoid NSAIDs and to follow-up with GI and with his PCP taya Patient states that he currently feels okay and that his epigastric pain has since resolved with no recurrence over the past week He denies any headaches or dizziness Denies any chest pains, no increased shortness of breath No nausea/vomiting and no change in bowel habits noted His is concerned about the possibility that his symptoms may be due to his gallbladder Patient adds that he has been experiencing on and off pain over his left lower back for the past few days States the pain does not radiate down his leg but he sometimes feel like it is coming around into his left groin area He denies any recent injury or trauma to his lower back [facility] Medical History Essential hypertension Cervical dystonia Vitamin D deficiency Mood disorder Mixed hyperlipidemia Polycystic kidney disease Obesity (BMI 30-39.9) Epigastric abdominal pain Stroke Insomnia Subarachnoid hemorrhage Umbilical hernia Pulmonary embolism Lyme disease Osteoarthritis Depression with anxiety Hiatal hernia Obstructive sleep apnea Morbid obesity GERD (gastroesophageal reflux disease) Diabetes mellitus Hypertension Surgical History Status post repair of ventral hernia H/O umbilical hernia repair S/P laparoscopic appendectomy History of back surgery Gastric bypass status for obesity Family History Mother History of diabetes mellitus Maternal Grandmother History of diabetes mellitus History of hypertension History of breast cancer Sister History of diabetes mellitus Social History Household Members: Spouse and Children Housing: Apartment Are you a primary home care manager rn to a significant other at home: No Do you presently have visiting nurse or other home services: Yes Alcohol intake: current Alcohol intake frequency: holidays/special occasions only Alcohol type: beer Patient Tobacco Use Status: Former Tobacco user Tobacco use type: Cigarette Cigarettes Per Day: 5 e-Cigarette/Vaping Use: Never Used Second Hand Smoke Exposure: Yes service: No Current occupational status: disabled Cognitive needs: No Hearing needs: No Vision needs: No Questionnaire PHQ-9 Over the last 2 weeks, how often have you been bothered by any of the following problems? 1. Little interest or pleasure in doing things: several days 2. Feeling down, depressed, or hopeless: several days 3. Trouble falling or staying asleep, or sleeping too much: several days 4. Feeling tired or having little energy: more than half the days 5. Poor appetite or overeating: several days 6. Feeling bad about yourself - or that you are a failure or have let yourself or your family down: more than half the days 7. Trouble concentrating on things, such as reading the newspaper or watching television: more than half the days 8. Moving or speaking so slowly that other people could have noticed. Or the opposite - being so fidgety or restless that you have been moving around a lot more than usual: not at all 9. Thoughts that you would be better off or of hurting yourself in some way: not at all Total score: 10 Depression Screening Interpretation: Positive Depression Screening Follow-up: Existing condition and In treatment Depression Screening Done: Yes 14585 - PHQ-9 Billing: Yes Source: Developed by Drs. Bartolo Edwards, Gina Cowan, Theo Costello and colleagues, with an educational karma from [employer]. Thrive Questionnaire Date Thrive assessed: 12/10/24 I am a: Patient What is your living situation today?: I have a steady place to live Within the past 12 months, did the food you bought not last and you didn't have the money to get more?: I choose not to answer this question Within the past 12 months, did you worry whether your food would run out before you got money to buy more?: I choose not to answer this question Do you have trouble paying for medicines?: I choose not to answer this question Do you have trouble getting transportation to medical appointments?: No Do you have trouble paying your heating and electricity bill?: I choose not to answer this question Do you have trouble taking care of your child, family member or friend?: No Do you have trouble with day-to-day activities such as bathing, preparing meals, shopping, managing finances, etc.?: No Are you currently unemployed and looking for a job?: No Are you interested in more education?: No Please select the resources that you would like help with: None Currently or been in a relationship where the following occur: No concerns reported THRIVE Score: 0 AUDIT C Alcohol Use Questionnaire (AUDIT-C) 1. How often do you have a drink containing alcohol?: Never 3. How often do you have six or more drinks on one occasion?: Never Total Score: 0 Score Reviewed/Action Taken: Yes PAOLA-7 AMB Questionnaire PAOLA-7 Date PAOLA - 7 assessed: 12/10/24 Feeling nervous, anxious, or on edge: 1 = Several days Not being able to stop or control worryin = Several days Worrying too much about different things: 1 = Several days Trouble relaxin = Several days Being so restless that it is hard to sit still: 1 = Several days Becoming easily annoyed or irritable: 1 = Several days Feeling afraid as if something awful might happen: 1 = Several days Total PAOLA-7 score (0-4 normal; 5-9 mild; 10-14 moderate; 15-21 severe): 7 Source: Developed by Drs. Bartolo Edwards, Gina Cowan, Theo Costello and colleagues, with an educational karma from [employer]. Review of Systems Const Denies chills, Denies fatigue, Denies fever(s) and Denies headache(s) ENT Denies dysphagia, Denies dizziness, Denies otalgia, Denies headache(s), Reports neck pain (recurrent - has cervical dystonia bilaterally), Denies odynophagia and Denies sore throat Card Denies chest pain, Denies irregular heart rhythm, Denies palpitations and Denies dyspnea Resp Denies chest congestion, Denies cough and Denies dyspnea GI Reports abdominal pain (epigastric - see HPI), Denies constipation, Denies dysphagia, Denies heartburn, Denies diarrhea, Denies nausea, Denies odynophagia and Denies vomiting Denies difficulty urinating, Denies dysuria and Denies urinary frequency Musc Reports back pain (over the left lower back - see HPI), Denies arthralgias and Reports neck pain (recurrent - has cervical dystonia bilaterally) Skin/Breast Denies rash Neuro Denies dizziness, Denies headache(s) and Denies paresthesias Psych Reports anxiety and Reports depression Endo Denies fatigue and Denies palpitations Physical exam (Primary Care) Vital Signs: Last Vital Signs Pulse 80 12/10/24 13:47 BP 132/86 12/10/24 13:47 Pulse Ox 96 12/10/24 13:47 Oxygen Delivery Method Room Air 12/10/24 13:47 BMI result Body Mass Index 38.1 Tobacco/Smoking Status: Tobacco use Status Tobacco use date assessed 12/10/24 12/10/24 13:52 Patient Tobacco Use Status Former Tobacco user 12/10/24 13:52 Tobacco use type Cigarette 12/10/24 13:52 e-Cigarette/Vaping Use Never Used 12/10/24 13:52 PHQ-9: PHQ-9 Score PHQ-9: Total score 10 12/10/24 22:33 Depression Screening Interpretation: Positive Depression Screening Follow-up: Existing condition and In treatment Thrive Assessment: Date of Thrive Assessment Date Thrive assessed 12/10/24 12/10/24 13:52 Currently or been in a relationship where the following occur: No concerns reported Const General: no acute distress and alert HENMT Ears: TM's normal bilaterally and EAC's normal Throat: Yes posterior oropharynx normal and Yes tonsils normal (no TP congestion) Neck Neck: Yes no lymphadenopathy and Yes tender (over the levator scapula muscles on both sides) Thyroid: Thyroid normal Resp Auscultation: clear to auscultation bilaterally, no rales and no wheezes Cardio Rate: regular rate Rhythm: regular rhythm Heart sounds: no murmurs GI Palpation (GI): Soft to palpation and nontender Auscultation: normal bowel sounds General: Yes no CVA tenderness Back/Spine/Pelvis Back: no CVA tenderness Cervical Spine: cervical muscular tenderness (bilaterally) Thoracic/Lumbar Spine: paraspinal muscle tenderness on the left in the mid lumbar and in the lower lumbar and No lumbar spinal tenderness Skin Rashes: no rashes Extrem General: Yes no clubbing, cyanosis or edema Coding Level of Care Code Est Pt Level 4 (43808) Diagnoses Gastritis without bleeding, unspecified chronicity, unspecified gastritis type K29.70 Gastritis type: unspecified gastritis Chronicity: unspecified Gastritis bleeding: without bleeding Acute left-sided low back pain, unspecified whether sciatica present M54.50 Sciatica presence: unspecified whether sciatica present Alcohol use disorder, severe, dependence F10.20 Essential hypertension I10 Additional Codes PHQ-9 - 00709 - PHQ-9 Billing: Yes ([id number]) Assessment & Plan Assessment & Plan (1) Gastritis: Code(s): K29.70 - Gastritis, unspecified, without bleeding Category: Medical Qualifiers: Gastritis type: unspecified gastritis Chronicity: unspecified Gastritis bleeding: without bleeding Qualified Code(s): K29.70 - Gastritis, unspecified, without bleeding Plan: Discussed dietary restrictions to help minimize aggravating his symptoms Continue Omeprazole 20 mg QD and Carafate 1 gm QID; continue Famotidine 20 mg BID PRN Advised patient that a referral to GI has already been placed for him a few days ago and that they should be contacting him soon schedule an appointment Discussed with patient that he will likely require her EGD for further evaluation, especially if his symptoms do not improve significantly with his current medications (2) Acute left-sided low back pain: Code(s): M54.50 - Low back pain, unspecified Category: Medical Qualifiers: Sciatica presence: unspecified whether sciatica present Qualified Code(s): M54.50 - Low back pain, unspecified Plan: Will send patient for x-rays of the lumbar spine and the left hip for further evaluation (3) Alcohol use disorder, severe, dependence: Code(s): F10.20 - Alcohol dependence, uncomplicated Category: Medical Plan: Patient used to follow up with [facility] but he is now going to [facility] in [place] States that he has been completely sober for several months now Continue Vivitrol IM injections 380 mg every 4 weeks (4) Essential hypertension: Code(s): I10 - Essential (primary) hypertension Category: Medical Plan: Reinforced low sodium diet - goal is systolic BP of at least 120 mm or less Continue Lisinopril 7.5 mg (5 mg x 1.5 tablets) QD Follow up with nephrology as scheduled Plan To return as scheduled in January 2025 for his annual physical examination Orders: Orders XR hip LT min 2V 12/10/24 M25.552 - Pain in left hip XR lumbar spine 2-3V 12/10/24 M54.50 - Low back pain, unspecified
== END 2024-12-10 14:19 | disposition home or self-care (01) ==
LOC: HO.HMCH 13:45
PROVIDERS: PCP Internal Medicine; Visit Provider Internal Medicine
DX: K29.70 Gastritis, unspecified, without bleeding (principal); M54.50 Low back pain, unspecified; F10.20 Alcohol dependence, uncomplicated; I10 Essential (primary) hypertension

== ENCOUNTER → 2024-12-10 13:44 | Outpatient (BNVA) | payer OTHER, SELFPAY | PROVIDERS: PCP Internal Medicine; Visit Provider Internal Medicine | DX: R10.13 Epigastric pain (principal); K29.70 Gastritis, unspecified, without bleeding; M54.50 Low back pain, unspecified; F10.20 Alcohol dependence, uncomplicated; I10 Essential (primary) hypertension; M25.552 Pain in left hip | CPT/HCPCS: 96127; 99212 ==

== ENCOUNTER 2024-12-11 12:11 | Outpatient (REF) | payer OTHER, SELFPAY ==
--- NOTE | ~2024-12-11 | XR_ITS ---
EXAMINATION: XR LUMBAR SPINE 2-3 VIEWS HISTORY: M54.50 - Low back pain, unspecified COMPARISON: Comparison is made with the prior examination dated 01/18/2017. FINDINGS: AP, lateral, and coned down views of the lumbar spine are submitted. Osseous mineralization is normal. Five nonrib-bearing lumbar vertebral bodies are identified, maintaining normal height and alignment without evidence of fracture or spondylolisthesis. The intervertebral disc spaces are preserved. The posterior elements are intact. The visualized paraspinal soft tissues are unremarkable. XR/XR lumbar spine 2-3V IMPRESSION: Unremarkable examination of the lumbar spine. Electronically signed by: Bartolo Huang MD 12/11/2024 12:41 PM EDT
--- NOTE | ~2024-12-11 | XR_ITS ---
EXAMINATION: XR HIP 2 OR MORE VIEWS LEFT HISTORY: M25.552 - Pain in left hip COMPARISON: Comparison is made with the prior examination dated 02/10/2010. FINDINGS: Two views of the left hip are submitted. Osseous mineralization is normal. There is no fracture or dislocation. There is some mild osteoarthritis with joint space narrowing and osteophyte formation. The soft tissues are unremarkable. XR/XR hip LT min 2V IMPRESSION: Mild osteoarthritis. Electronically signed by: Bartolo uHang MD 12/11/2024 12:38 PM EDT
--- OUTSIDE RECORDS SUMMARY | 2024-12-11 13:03 | XMS_ITS | Clinical Summary ---
Author Organization [facility] Address [address] [place] [address] Care Team Providers Care Machinist General Name Role Phone Edward Lockwood MD Primary Care Provider Medications pantoprazole (PROTONIX) 40 mg EC tablet TAKE 1 TABLET BY MOUTH EVERY DAY 90 tablet 04/13/2024 Active Surgical History Surgery Date Site/Laterality Comments APPENDECTOMY PROCEDURE: RI APPENDECTOMY BACK SURGERY PROCEDURE: HISTORICAL BACK SURGERY FOOT SURGERY PROCEDURE: RI UNLISTED PROCEDURE FOOT/TOES OTHER SURGICAL HISTORY PROCEDURE: ---- OTHER ----; COMMENT: Revision of RNY to Distal GB Medical History Medical History Date Comments Diabetes (CMS/HCC V24, CMS/HCC V28) DX:Diabetes ([facility]) Social History Tobacco Use Types Packs/Day [...] age to complete this topic Care Teams Machinist General Relationship Specialty Start Date End Date Edward Lockwood MD [address] [place] [address] Dr [address] [place], [place] PCP - General Internal Medicine 05/26/20
--- OUTSIDE RECORDS SUMMARY | 2024-12-11 13:03 | XMS_ITS | Clinical Summary ---
Author Organization [facility] Address [address] [place] [address] Phone Care Team Providers Care Electric Meter Installer Helper Name Role Phone Edward Lockwood MD Primary Care Provider +1- [phone] Allergies Active Allergy Reactions Criticality Noted Date [...] (#1) 2024 Insurance [facility] [place] [address] Medicaid Care Teams Electric Meter Installer Helper Relationship Specialty Start Date End Date Edward Lockwood MD [address] [place] [address] PCP - General 05/12/20
--- OUTSIDE RECORDS SUMMARY | 2024-12-11 13:03 | XMS_ITS | Encounter Summary ---
Author Organization [facility] Address [address] [place], [place] [address] Phone Care Team Providers Care Surface Water Technician Name Role Phone Edward Lockwood MD Primary Care Provider +1 -[phone] Encounter Details Date Type Department Care Team (Late st Contact Info) Description 12/12/2019 Procedure Pass OR Admitting Dept - Virtual Department [address] [place] [address] Social History Tobacco Use Types Packs/Day Years [...] on filedocumented in this encounter Care Teams Surface Water Technician Relationship Specialty Start Date End Date Edward Lockwood MD [address] [place] [address] [place] [address] PCP - General Internal Medicine 05/23/18 documented as of this encounter Additional Source Comments The information contained in this document represents components of the legal health record. It is not the complete legal health record.[facility]
== END 2024-12-11 12:12 | disposition home or self-care (01) ==
LOC: HO.XRAY 12:11
PROVIDERS: PCP Internal Medicine; Visit Provider Internal Medicine
DX: M25.552 Pain in left hip (principal); M54.50 Low back pain, unspecified
CPT/HCPCS: 72100; 73502

== ENCOUNTER → 2024-12-11 12:16 | Outpatient (BNV) | payer OTHER, SELFPAY | PROVIDERS: PCP Internal Medicine; Visit Provider Radiology Diagnostic Radiology | DX: M16.12 Unilateral primary osteoarthritis, left hip (principal); M54.50 Low back pain, unspecified | CPT/HCPCS: 72100; 73502 ==

== ENCOUNTER 2025-03-05 08:45 | Outpatient (REF) | payer OTHER, SELFPAY ==
[2025-03-05 08:59] LABS: MANUAL DIFF FLAG NO
--- OUTSIDE RECORDS SUMMARY | 2025-03-05 09:15 | XMS_ITS | Encounter Summary ---
Author Organization [facility] Address [address] [place], [place] [id number] Phone Care Team Providers Care Metalsmith Helper Name Role Phone Edward Lockwood MD Primary Care Provider +1 -[phone] Encounter Details Date Type Department Care Team (Late st Contact Info) Description 12/12/2019 Procedure Pass OR Admitting Dept - Virtual Department [address] [place] [address] Social History Tobacco Use Types Packs/Day Years [...] on filedocumented in this encounter Care Teams Metalsmith Helper Relationship Specialty Start Date End Date Edward Lockwood MD [address] [place] [address] [place] [address] PCP - General Internal Medicine 05/23/18 documented as of this encounter Additional Source Comments The information contained in this document represents components of the legal health record. It is not the complete legal health record.[facility]
--- OUTSIDE RECORDS SUMMARY | 2025-03-05 09:15 | XMS_ITS | Encounter Summary ---
Author Organization [facility] Address [address] [place], [place] [address] Phone Care Team Providers Care Client Experience Consultant Name Role Phone Edward Lockwood MD Primary Care Provider +1 -[phone] Encounter Details Date Type Department Care Team (Late st Contact Info) Description 10/11/2019 Procedure Pass [facility], Ct Scan - [address] [address] Social History Tobacco Use Types Packs/Day Years [...] on filedocumented in this encounter Care Teams Client Experience Consultant Relationship Specialty Start Date End Date dEward Lockwood MD [address] [place] [address] [place] [address] PCP - General Internal Medicine 05/23/18 documented as of this encounter Additional Source Comments The information contained in this document represents components of the legal health record. It is not the complete legal health record.[facility]
--- OUTSIDE RECORDS SUMMARY | 2025-03-05 09:15 | XMS_ITS | Encounter Summary ---
Author Organization [facility] Address [address] [place], [place] [address] Phone Care Team Providers Care Athletic Instructor Name Role Phone Edward Lockwood MD Primary Care Provider +1 -[phone] Encounter Details Date Type Department Care Team (Late st Contact Info) Description 05/29/2018 Procedure Pass OR Admitting Dept - Virtual Department [address] [place] [address] Social History Tobacco Use Types Packs/Day Years Used Date Smoking Tobacco: Former Cigarettes Q uit: 05/27/2009 Smokeless Tobacco: Never Alcohol Use Standard [...] on filedocumented in this encounter Care Teams Athletic Instructor Relationship Specialty Start Date End Date Edward Lockwood MD [address] [place] [address] Dr [place] [address] PCP - General Internal Medicine 05/23/18 documented as of this encounter Additional Source Comments The information contained in this document represents components of the legal health record. It is not the complete legal health record.[facility]
--- OUTSIDE RECORDS SUMMARY | 2025-03-05 09:15 | XMS_ITS | Clinical Summary ---
[facility] Organization [facility] Address [address] [place] [address] Care Team Providers Care Vegetable Cutter Name Role Phone Edward Lockwood MD Primary Care Provider Medications pantoprazole (PROTONIX) 40 mg EC tablet TAKE 1 TABLET BY MOUTH EVERY DAY 90 tablet 04/13/2024 Active Surgical History Surgery Date Site/Laterality Comments APPENDECTOMY PROCEDURE: SC APPENDECTOMY BACK SURGERY PROCEDURE: HISTORICAL BACK SURGERY FOOT SURGERY PROCEDURE: SC UNLISTED PROCEDURE FOOT/TOES OTHER SURGICAL HISTORY PROCEDURE: ---- OTHER ----; COMMENT: Revision of RNY to Distal GB Medical History Medical History Date Comments Diabetes (CMS/HCC V24, CMS/HCC V28) DX:Diabetes ([facility]) Social History Tobacco Use Types Packs/Day Years [...] of 3 - 19+ 3-dose series) 2001 HPV Vaccines (1 - 3-dose SCD M series) 2009 Cholesterol Screening (Lipid Panel) 04/04/2022 HIV Screening 04/04/2022 Hepatitis C Screening 04/04/2022 Social Influencers of Health Screening 04/04/2022 Depression Screening 05/02/2024 COVID-19 Vaccine (1 - 2023-2 5 season) 2024 Influenza Vaccine (#1) 2024 RSV Immunization Adult Patie nts (1 - 1-dose 75+ series) 2057 HIB Vaccines Aged Out No longer eligi [...] age to complete this topic Care Teams Vegetable Cutter Relationship Specialty Start Date End Date Edward Lockwood MD [address] [place] [address] Dr [address] [place], [place] PCP - General Internal Medicine 05/26/20
--- OUTSIDE RECORDS SUMMARY | 2025-03-05 09:15 | XMS_ITS | Clinical Summary ---
Author Organization [facility] Address [address] [place] [id number] Phone Care Team Providers Care Engraver Flatware Name Role Phone Edward Lockwood MD Primary Care Provider [phone] Allergies Active Allergy Reactions Criticality Noted Date Comments Oxycodone Itching Low 05/27/2018 Medications cyclobenzaprine (FLEXERIL) 5 MG tablet Take 1 tablet (5 mg total) by mouth 3 (three) times a day as needed. 10 tablet 9 Active Additional Information Patient taking differently: 10 mgOralDaily as needed, Reported on 05/27/2018 gabapentin (NEURONTIN) 400 MG capsule Take 400 mg by mouth 2 (two) times a day. Prn severe pain Active omeprazole (PRILOSEC) 20 MG tablet Take 20 mg by mouth daily. Active docusate sodium (COLACE) 100 MG capsule Take 100 mg by mouth 2 (two) times a day as needed. Active clonazePAM (KLONOPIN) 1 MG tablet Take 1 mg by mouth daily. Active FLUoxetine (PROZAC) 10 MG capsule Take 10 mg by mouth daily. Active multivitamin-mi nerals-lutein (CENTRUM SILVER) Tab Take 1 tablet by mouth daily. Active cyanocobalamin, vitamin B-12, 100 MCG tablet Take 100 mcg by mouth daily. Active metFORMIN (GLUCOPHAGE) 500 MG tablet Take 1,000 mg by mouth 2 (two) times a day with meals. Active traZODone (DESYREL) 100 MG tablet Take 100 mg by mouth as needed. Active benztropine (COGENTIN) 0.5 MG tablet Take 0.5 mg by mouth as needed. Active risperiDONE (RISPERDAL) 1 MG tablet Take 1 mg by mouth as needed. Active ziprasidone (GEODON) 40 MG capsule ziprasidone 40 mg capsule Active zolpidem (AMBIEN) 5 MG tablet zolpidem 5 mg tablet Active acetaminophen (TYLENOL) 325 mg tablet Take 2 tablets (650 mg total) by mouth every 4 (four) hours as needed for mild pain. 0 0 Active ibuprofen (ADVIL,MOTRIN) 200 MG tablet Take 2 tablets (400 mg total) by mouth every 6 (six) hours as needed for pain (specific location in comments). 0 Active aspirin 81 MG EC tablet Take 81 mg by mouth daily. Active oxyCODONE-aceta minophen (PERCOCET) 5-325 mg per tablet Take 1 tablet by mouth every 4 (four) hours as needed for pain (specific location in comments). Partial fill ok 10 tablet 1 Active Active Problems Problem Noted Date Diagnosed Date History of venous thromboembolism 05/28/2018 Assessment & Plan (05/29/2018 6:07 PM EST): Patient has a history of postoperative DVT/PE approximately 1 year ago. Patient was due to follow-up with hematology for discontinuation of Eliquis. Restart eliquis in am Type 2 diabetes mellitus wit hout complication, without long-term current use of insulin 05/27/2018 Assessment & Plan (05/29/2018 6:06 PM EST): POC within nl range -Continue to hold metformin -Continue diabetic diet -Continue insulin sliding scale. Resolved Problems Problem Noted Date Diagnosed Date Resolved Date Appendicitis 05/27/2018 06/09/2018 Assessment & Plan (05/29/2018 6:08 PM EST): Patient presented with sudden onset of right lower quadrant pain. Presented here with CT scan showing early appendicitis. POD0 s/p lap Feeling well with a little surgical site pain. appy. -d/c abx -regular diabetic diet -Continue IV morphine/Toradol as needed. Social History Tobacco Use Types Packs/Day Years Used Date Smoking Tobacco: Every Day Cigarettes Last attempted to quit: 05/27/2009 Smokeless Tobacco: Never Alcohol Use Standard Drinks/Week Comments Yes 0 (1 standard drink = 0.6 oz pur e alcohol) rare Education Answer Date Recorded Are you interested in more education? Not on anibal e 08/27/2022 Are you concerned about learning? Not on file 08/27/2022 No 08/27/2022 No 08/27/2022 Digital Access Answer Date Recorded No 09/25/2022 No 09/25/2022 No 09/25/2022 Reliable internet access at home? Not on file 09/25/2022 Device with a working camera? Not on file Sex and Gender Information Value Date Recorded Sex Assigned at Male 05/23/2018 8:33 PM EST Legal Sex Male 3:47 PM EDT Gender Identity Male 05/23/2018 8:33 PM EST Sexual Orientation Straight 05/23/2018 8: 33 PM EST Last Filed Vital Signs Vital Sign Reading Time Taken Comments Blood Pressure 117/91 10/21/2020 8:45 PM EDT Pulse 83 10/21/2020 5:49 PM EDT Temperature 36.2 C (97.2 F) 10/21/2020 5:49 PM EDT Respiratory Rate 20 10/21/2020 5:49 PM EDT Oxygen Saturation 96% 10/21/2020 8:45 PM EDT Inhaled Oxygen Concentration - - Weight 122.5 kg (270 lb) 10/21/2020 5:49 PM EDT Height 175.3 cm (5' 9 ) 10/21/2020 5:49 PM EDT Body Mass Index 39.87 10/21/2020 5:49 PM EDT Plan of Treatment Health Maintenance Due Date Last Done Comments Adult Td,Tdap Booster 1982 BLOOD PRESSURE 1982 HEMOGLOBIN A1C 1982 DEPRESSION SCREENING 1994 SMOKING Hx and SMOKELESS TOBACCO SCREENING 1995 HEPATITIS C SCREENING 02/11/2000 HIV ONE-TIME SCREENING (18-65 YEARS) 02/11/2000 LIPID PANEL 02/11/2000 PNEUMOCOCCAL VACCINES (0-49 years) (1 of 2 - PCV) 2001 DIABETIC EYE EXAM 05/27/2018 URINE MICROALBUMIN/CREATININE RATIO 05/27/2018 CREATININE LEVEL 12/23/2020 12/24/2019, , 05/29/2018, Additional history exists INFLUENZA VACCINE (#1) 2024 COVID-19 VACCINE ( season) 2024 10/16/2020, 09/25/2020 HEPATITIS A VACCINES Aged Out No long er eligible based on patient's age to complete this topic HIB VACCINES Aged Out No longer eligi ble based on patient's age to complete this topic MENINGOCOCCAL VACCINES (ACWY) Aged Out No longer eligible based on patient's age to complete this topic MENINGOCOCCAL VACCINES (B) Aged Out N o longer eligible based on patient's age to complete this topic Medical Devices Implanted Type Area Team Leader Surgery Device Identifier Shelf Expiration Date Model / Serial / Lot Mesh Graft 6.[address]in [address] Polypropylene Echo Positioning System Hydrogel Barrier Hernia [place] - [id number] Implanted:Qty: 1 on 12/12/2019 by Abbey Theodore MD at [facility] N/A: Abdomen DAVOL 04/28/2021 [id number] / [id number] Device Fixation 37mm Optifix Pdlla Smooth Head Hollow Core Angled Tip Absorbable 30 Fastner Bx/5ea - [id number] Implanted:Qty: 1 on 12/12/2019 by Abbey Theodore MD at [facility] N/A: Abdomen DAVOL 01/27/2021 [id number] / [id number] / [id number] Procedures Procedure Name Priority Date/Time Associated Diagnosis Comments BASIC METABOLIC PANEL (BMP) STAT 12/24/2019 10:53 PM EDT from Last 3 Months or Most Recently Relevant to Health Maintenance Results * (ABNORMAL) Basic metabolic panel (12/24/2019 10:53 PM EDT) SODIUM 142 133 - 146 mmol/L [facility] CHLORIDE 106 96 - 108 mmol/L [facility] POTASSIUM 3.9 3.3 - 5.1 mmol/L [facility] CO2 25 21 - 35 mmol/L [facility] BUN 15 6 - 19 mg/dL [facility] CREATININE 1.00 0.5 - 1.5 mg/dL [facility] GLUCOSE 185(H) 70 - 99 mg/dL [facility] CALCIUM 8.8 8.4 - 10.3 mg/dL [facility] EGFR 96 >59 mL/min/1.7 3m2 [facility] Comment:Estimated glomerular filtration rate calculated using the CKD-EPI equation. ANION GAP 15 10 - 20 mmol/L [facility] Blood 12/24/2019 10:5 3 PM EDT 12/24/2019 11:01 PM EDT us Hay Lomax DO LAB BLOOD BKR ORDERABLES Laurence rucker Result [facility] [address] [place] [address] from Last 3 Months or Most Recently Relevant to Health Maintenance Insurance ACO ACO ACO ACO [employer] [place] [address] Advance Directives For more information, please contact: [phone] (9AM - 5PM [place], Tuesday-Tuesday) * Full Code (Presumed) (Latest Code Status on File) Date Activated Date Inactivated Comments 12/12/2019 12:41 PM * Full Code (Presumed) Date Activated Date Inactivated Comments 05/27/2018 8:36 PM 05/30/2018 11:15 AM Care Teams Engraver Flatware Relationship Specialty Start Date End Date Edward Lockwood MD [address] [place] [address] [place] [address] PCP - General Internal Medicine 05/23/18 Additional Source Comments The information contained in this document represents components of the legal health record. It is not the complete legal health record.[facility]
[2025-03-05 09:50] LABS: Hematocrit 43.7 % (42.0-52.0); Hemoglobin 14.4 g/dl (14.0-18.0); Imm Gran Abs Auto 0.01 X10*3/uL (0.00-0.03); Imm Gran Pct Auto 0.1 % (0.0-0.4); Lymphocytes Absolute Auto 2.5 X10*3/uL (1.2-4.9); Mean Corpuscular HGB Conc 33.0 g/dl (31.0-36.0); Mean Corpuscular Hemoglobin 27.5 pg (27.0-33.0); Mean Corpuscular Volume 83.4 fL (80.0-98.0); NRBC Abs Auto 0.000 X10*3/uL (0.0-0.012); NRBC Pct Auto 0.0 /100WBC (0.0-0.2); Platelet Count 225 X10*3/uL (160-400); Red Blood Count 5.24 X10*6/uL (4.60-5.80); White Blood Count 8.4 X10*3/uL (4.8-10.8)
[2025-03-05 09:54] LABS: Appearance Urine Clear; Glucose Urine UA Negative (Negative); PH 5.5 (5.0-9.0); Specific Gravity - Urine >= 1.030 (1.005-1.025); UMIC TRIGGER UACC YES
[2025-03-05 10:02] LABS: UACC Culture Trigger YES
[2025-03-05 10:57] LABS: Microalbum/Creatinine Ratio Ur 18.6 ug/mg cr (<30)
[2025-03-05 10:59] LABS: Alanine Aminotransferase 47 U/L (0-40); Albumin Level 4.2 g/dL (3.5-5.0); Alkaline Phosphatase 93 U/L (39-117); Anion Gap 13 (12-20); Aspartate Amino Transferase 28 U/L (5-37); Blood Urea Nitrogen 15 mg/dL (9-16); Calcium 9.1 mg/dL (8.4-10.2); Carbon Dioxide 23 mmol/L (22-29); Chloride 108 mmol/L (96-108); Cholesterol 120 mg/dL (<200); Estimated Glomerular Filt Rate > 60; HDL Cholesterol 27 mg/dL (>40); Potassium 3.5 mmol/L (3.3-5.1); Sodium 140 mmol/L (135-145); Total Protein 7.2 g/dL (6.5-8.0); Triglycerides 100 mg/dL (<150)
[2025-03-05 11:48] LABS: Folate 11.8 ng/mL (> or = 4.0); Vitamin B12 276 pg/mL (200-900)
== END 2025-03-05 08:46 | disposition home or self-care (01) ==
LOC: HO.LAB 08:45
PROVIDERS: PCP Internal Medicine; Visit Provider Internal Medicine
DX: E11.9 Type 2 diabetes mellitus without complications (principal); E53.8 Deficiency of other specified B group vitamins; E78.00 Pure hypercholesterolemia, unspecified; E55.9 Vitamin D deficiency, unspecified; D64.9 Anemia, unspecified
CPT/HCPCS: 36415; 80053; 80061; 81001; 82043; 82306; 82570; 82607; 82746; 83036; 84443; 85025; 87086